=== PATIENT | male | born 1940 | race African-American/Black ===

== ENCOUNTER 2018-12-02 15:59 | Inpatient (IN) | payer OTHER ==
[2018-12-02 16:59] LABS: Absolute Lymphocytes (CBC) 0.4 K/uL (0.7-4.9); Basophils % 0.3 % (0-1.3); Hematocrit 38.8 % (39.6-49.0); Lymphocytes % 5.4 % (15.3-44.8); MPV 9.6 fL (7.6-11.3); RBC Red Blood Cell Count 6.35 M/uL (4.33-5.43)
[2018-12-02 17:16] LABS: Albumin 3.8 g/dL (3.4-5.0); Bilirubin Direct 0.1 mg/dL (0-0.2); Bilirubin Total 0.4 mg/dL (0.2-1.0); Potassium 4.4 mmol/L (3.5-5.1); Protein, Total 8.6 g/dL (6.4-8.2)
[2018-12-02 17:37] LABS: Platelet Estimate ADEQ; Urine White Blood Cell Casts OK
[2018-12-02 17:38] LABS: Blood Morphology Comment NOTED (NOT SEEN); Hypochromasia 2+
[2018-12-02 18:19] LABS: Urine Blood TRACE (NEG); Urine Glucose NEGATIVE (NEG); Urine Protein 1+ (NEG)
--- NOTE | 2018-12-02 18:43 | RAD REPORT ---
EXAM DESCRIPTION: CTAbdomen Pelvis W Contrast - 12/02/2018 6:23 pm CLINICAL HISTORY: Abdominal pain. lower abdominal pain, vomiting COMPARISON: CTSTONE PROTOCOL dated 06/22/2014 TECHNIQUE: Biphasic CT imaging of the abdomen and pelvis was performed with 100 ml non-ionic IV cont rast. All CT scans are performed using dose optimization technique as appropriate and may include automated exposure control or mA/KV adjustment according to patient size. FINDINGS: Examination is limited by motion degradation. The lung bases are clear. The liver demonstrates no focal mass or biliary dilatation. The spleen, adrenal glands, pancreas and right kidney are normal. Left kidney contains a 3.7 cm cyst in the superior pole left kidney. Several prominent small bowel loops are present in the left aspect of the abdomen. The most dilated s mall bowel loop measures 3.5 cm. This is suspicious for a mild mechanical small-bowel obstruction. Se veral surgical clips are present in the left upper quadrant as well. Small amount of free fluid is se en in the abdomen pelvis. The appendix is not identified as a discrete structure, however, no seconda ry findings of appendicitis are identified. No evidence of significant lymphadenopathy. No suspicious bony findings. IMPRESSION: Several dilated small bowel loops in the left abdomen raise suspicion for early/ develop ing partial mechanical small-bowel obstruction.
[2018-12-02] MEDS ORDERED: NA CHLORIDE 0.9% 1,000 ML ONE (19:25)
[2018-12-02] MEDS ORDERED: MORPHINE 4 MG/ML SYR ONE (19:25)
--- NOTE | 2018-12-02 19:49 | ER ---
Nurse's Notes [facility] Name: Sukhwinder Bassett Age: 77 yrs Sex: Male : 1940 Arrival Date: 12/02/2018 Time: 16:01 Bed 5 Private MD: Diagnosis: Bowel Obstruction Presentation: 12/02 16:04 Presenting complaint: Patient states: Abd pain since 0300, vomited x 5 since 0600. la1 Denies diarrhea. I never eat at night and last night I ate some apples, I feel like that is what is causing this. Transition of care: patient was not received from another setting of care. Onset of symptoms was December 02, 2018. Risk Assessment: Do you want to hurt yourself or someone else? Patient reports no desire to harm self or others. Initial Sepsis Screen: Does the patient meet any 2 criteria? No. Patient's initial sepsis screen is negative. Does the patient have a suspected source of infection? No. Patient's initial sepsis screen is negative. Care prior to arrival: None. 16:04 Method Of Arrival: Ambulatory la1 16:04 Acuity: DIO 3 la1 Historical: - Allergies: 16:05 No Known Allergies; la1 - Home Meds: 16:05 None [Active]; la1 - PMHx: 16:05 None; la1 - Immunization history:: Adult Immunizations up to date. - Social history:: Smoking status: Patient/guardian denies using tobacco. - Ebola Screening: : No symptoms or risks identified at this time. Screenin:45 Abuse screen: Denies threats or abuse. Denies injuries from another. Nutritional jl7 screening: No deficits noted. Tuberculosis screening: No symptoms or risk factors identified. Fall Risk IV access (20 points). Total Meng Fall Scale indicates No Risk (0-24 pts). Assessment: 16:45 General: Appears in no apparent distress. uncomfortable, Behavior is calm, cooperative, jl7 appropriate for age. Pain: Complains of pain in left lower quadrant and right lower quadrant Pain currently is 0 out of 10 on a pain scale. Quality of pain is described as crampy, Is intermittent. Neuro: Level of Consciousness is awake, alert, obeys commands, Oriented to person, place, time, situation. Cardiovascular: Patient's skin is warm and dry. Respiratory: Airway is patent Respiratory effort is even, unlabored, Respiratory pattern is regular, symmetrical. GI: Abdomen is flat, non-distended, Stools are reported to be normal. Last BM was December 02, 2018. Bowel sounds present X 4 quads. Abd is soft and non tender X 4 quads. : No signs and/or symptoms were reported regarding the genitourinary system. Denies burning with urination, inability to void, pain urinary frequency. EENT: No signs and/or symptoms were reported regarding the EENT system. Derm: Skin is dry, Skin is normal, Skin temperature is warm. Musculoskeletal: No signs and/or symptoms reported regarding the musculoskeletal system. 16:55 Reassessment: Pt reports "I just went to the bathroom." Unable to obtain urine at this jl7 time. 19:06 Reassessment: Patient appears in no apparent distress at this time. Patient and/or aa1 family updated on plan of care and expected duration. Pain level reassessed. Patient is alert, oriented x 3, equal unlabored respirations, skin warm/dry/pink. Awaiting provider reassessment. Vital Signs: 16:05 BP 170 / 84; Pulse 84; Resp 16; Temp 98.6; Pulse Ox 98% on R/A; Weight 92.99 kg; Height la1 6 ft. 0 in. (182.88 cm); 19:03 BP 176 / 82; Pulse 56; Resp 18; Temp 97.6; Pulse Ox 98% on R/A; Pain 5/10; aa1 20:00 BP 184 / 95; Pulse 56; Resp 16; Pulse Ox 98% on R/A; aa1 21:09 BP 175 / 85; Pulse 60; Resp 18; Temp 97.8; Pulse Ox 16% on R/A; Pain 3/10; aa1 16:05 Body Mass Index 27.80 (92.99 kg, 182.88 cm) la1 ED Course: 16:01 Patient arrived in ED. as 16:05 Triage completed. la1 16:05 Arm band placed on left wrist. la1 16:24 Prabhu Muñoz PA is PHCP. [facility] 16:24 Lauri Brothers MD is Attending Physician. [facility] 16:26 Lizbeth Alaniz RN is Primary Nurse. jl7 16:41 Radiology exam delayed due to lab results not completed at this time. (BUN/Creatinine). vm2 16:45 Patient has correct armband on for positive identification. Placed in gown. Bed in low jl7 position. Call light in reach. Side rails up X 1. property assessment monitor on. Pulse ox on. NIBP on. Warm blanket given. 16:45 Initial lab(s) drawn, by me, sent to lab. Inserted saline lock: 20 gauge in right jl7 forearm, using aseptic technique. Blood collected. 18:10 Urine collected: clean catch specimen, clear. dh3 18:23 CT Abd/Pelvis - IV Contrast Only In Process Unspecified. EDMS 19:48 Johanna Rowell MD is Hospitalizing Provider. m 20:53 No provider procedures requiring assistance completed. Patient admitted, IV remains in aa1 place. Administered Medications: 19:30 Drug: NS 0.9% 1000 ml Route: IV; Rate: 1 bolus; Site: right forearm; aa1 21:09 Follow up: IV Status: Completed infusion; IV Intake: 1000ml aa1 19:33 Drug: morphine 4 mg Route: IVP; Site: right forearm; aa1 20:33 Follow up: Response: No adverse reaction; Pain is decreased; RASS: Alert and Calm (0) aa1 20:13 Drug: LevaQUIN 500 mg Volume: 100 ml; Route: IVPB; Infused Over: 60 mins; Site: right aa1 forearm; 21:09 Follow up: IV Status: Completed infusion aa1 20:13 Drug: Flagyl 500 mg Volume: 100 ml; Route: IVPB; Rate: 200 ml/hr; Infused Over: 30 aa1 mins; Site: right forearm; 21:08 Follow up: IV Status: Completed infusion aa1 Intake: 21:09 IV: 1000ml; Total: 1000ml. aa1 Outcome: 19:48 Decision to Hospitalize by Provider. jmm 21:31 Admitted to Med/surg accompanied by tech, via wheelchair, room 231, with chart. mg2 21:32 Condition: stable mg2 21:32 Instructed on the need for admit, Demonstrated understanding of instructions. 21:32 Patient left the ED. mg2 Signatures: Dispatcher [employer] EDMS Lorrie Boland RN RN aa1 Prabhu Muñoz PA PA jmm Martinez, Amelia as Attema, Lee, RN RN la1 Lizbeth Alaniz RN RN jl7 Delicia Bach [facility] Carmella Sheffield 3 Isrrael Cardozo RN RN mg2 Corrections: (The following items were deleted from the chart) 21:32 21:31 Admitted to mg2 mg2
--- NOTE | 2018-12-02 19:50 | EDPHYS ---
Physician Documentation [facility] Name: Sukhwinder Bassett Age: 77 yrs Sex: Male : 1940 Arrival Date: 12/02/2018 Time: 16:01 Bed 5 Private MD: ED Physician Lauri Brothers HPI: 12/02 16:40 This 77 yrs old Black Male presents to ER via Ambulatory with complaints of Abdominal jmm Pain. 16:40 The patient presents with abdominal pain in the lower abdomen. Onset: The jmm symptoms/episode began/occurred gradually, 1 day(s) ago. The symptoms do not radiate. Associated signs and symptoms: Pertinent positives: vomiting. The symptoms are described as achy. This is a 77 year old male with no chronic medical conditions that presents to the ED with complaints of lower abdominal pain, vomiting beginning yesterday. Denies diarrhea. . Historical: - Allergies: 16:05 No Known Allergies; la1 - Home Meds: 16:05 None [Active]; la1 - PMHx: 16:05 None; la1 - Immunization history:: Adult Immunizations up to date. - Social history:: Smoking status: Patient/guardian denies using tobacco. - Ebola Screening: : No symptoms or risks identified at this time. ROS: 16:40 Constitutional: Negative for fever, chills, and weight loss, Cardiovascular: Negative jmm for chest pain, palpitations, and edema, Respiratory: Negative for shortness of breath, cough, wheezing, and pleuritic chest pain. 16:40 Back: Negative for injury and pain, MS/Extremity: Negative for injury and deformity, Skin: Negative for injury, rash, and discoloration, Neuro: Negative for headache, weakness, numbness, tingling, and seizure. 16:40 Abdomen/GI: Positive for abdominal pain, nausea and vomiting, Negative for diarrhea. 16:40 All other systems are negative. Exam: 16:40 Constitutional: This is a well developed, well nourished patient who is awake, alert, jmm and in no acute distress. Head/Face: atraumatic. Eyes: EOMI, no conjunctival erythema appreciated ENT: Moist Mucus Membranes Neck: Trachea midline, Supple Chest/axilla: Normal chest wall appearance and motion. Cardiovascular: Regular rate and rhythm. No edema appreciated Respiratory: Normal respirations, no respiratory distress appreciated 16:40 Back: Normal ROM Skin: General appearance color normal MS/ Extremity: Moves all extremities, no obvious deformities appreciated, no edema noted to the lower extremities Neuro: Awake and alert, normal gait Psych: Behavior is normal, Mood is normal, Patient is cooperative and pleasant 16:40 Abdomen/GI: Inspection: abdomen appears normal, Bowel sounds: normal, Palpation: soft, mild abdominal tenderness, in the right lower quadrant and left lower quadrant. Vital Signs: 16:05 BP 170 / 84; Pulse 84; Resp 16; Temp 98.6; Pulse Ox 98% on R/A; Weight 92.99 kg; Height la1 6 ft. 0 in. (182.88 cm); 19:03 BP 176 / 82; Pulse 56; Resp 18; Temp 97.6; Pulse Ox 98% on R/A; Pain 5/10; aa1 20:00 BP 184 / 95; Pulse 56; Resp 16; Pulse Ox 98% on R/A; aa1 21:09 BP 175 / 85; Pulse 60; Resp 18; Temp 97.8; Pulse Ox 16% on R/A; Pain 3/10; aa1 16:05 Body Mass Index 27.80 (92.99 kg, 182.88 cm) la1 MDM: 16:32 Patient medically screened. [facility] 19:46 Data reviewed: vital signs, nurses notes. Counseling: I had a detailed discussion with dayana the patient and/or guardian regarding: the historical points, exam findings, and any diagnostic results supporting the discharge/admit diagnosis, lab results, radiology results, the need for further work-up and treatment in the hospital. ED course: I discussed the patient with Dr. Rowell and Dr. Bolaños whom accepted admission. . 08 16:38 Order name: Basic Metabolic Panel; Complete Time: 17:46 [facility] 12/02 16:38 Order name: CBC with Diff; Complete Time: 17:46 [facility] 12/02 16:38 Order name: Creatinine for Radiology; Complete Time: 17:46 [facility] 12/02 16:38 Order name: Hepatic Function; Complete Time: 17:46 [facility] 12/02 16:38 Order name: Lipase; Complete Time: 17:46 [facility] 12/02 17:12 Order name: CBC Smear Scan; Complete Time: 17:46 [facility] 12/02 16:38 Order name: CT Abd/Pelvis - IV Contrast Only; Complete Time: 18:46 [facility] 12/02 18:15 Order name: Urine Dipstick--Ancillary (enter results); Complete Time: 18:20 eb 12/02 20:19 Order name: CONS Physician Consult [facility] 12/02 20:19 Order name: NPO [facility] 12/02 16:38 Order name: IV Saline Lock; Complete Time: 16:45 [facility] 12/02 16:38 Order name: Labs collected and sent; Complete Time: 16:45 [facility] 12/02 16:38 Order name: Urine Dipstick-Ancillary (obtain specimen); Complete Time: 18:17 [facility] Administered Medications: 19:30 Drug: NS 0.9% 1000 ml Route: IV; Rate: 1 bolus; Site: right forearm; aa1 21:09 Follow up: IV Status: Completed infusion; IV Intake: 1000ml aa1 19:33 Drug: morphine 4 mg Route: IVP; Site: right forearm; aa1 20:33 Follow up: Response: No adverse reaction; Pain is decreased; RASS: Alert and Calm (0) aa1 20:13 Drug: LevaQUIN 500 mg Volume: 100 ml; Route: IVPB; Infused Over: 60 mins; Site: right aa1 forearm; 21:09 Follow up: IV Status: Completed infusion aa1 20:13 Drug: Flagyl 500 mg Volume: 100 ml; Route: IVPB; Rate: 200 ml/hr; Infused Over: 30 aa1 mins; Site: right forearm; 21:08 Follow up: IV Status: Completed infusion aa1 Disposition: 12/02/18 19:48 Hospitalization ordered by Johanna Rowell for Inpatient Admission. Preliminary diagnosis is Bowel Obstruction. - Bed requested for Telemetry/MedSurg (Inpatient). - Status is Inpatient Admission. mg2 - Condition is Stable. - Problem is new. - Symptoms are unchanged. UTI on Admission? No Addendum: 12/05/2018 07:20 Co-signature as Attending Physician, Lauri Brothers MD. r n Signatures: Dispatcher [employer] [facility] Ambar Bentley RN RN Lorrie Boland RN RN aa1 Prabhu Muñoz PA PA [facility] Lauri Brothers MD MD rn Attema, Lee, RN RN la1 Isrrael Cardozo RN RN mg2 Corrections: (The following items were deleted from the chart) 12/02 20:36 19:48 Hospitalization Ordered by Johanna Rowell MD for Inpatient Admission. Preliminary mw diagnosis is Bowel Obstruction. Bed requested for Telemetry/MedSurg (Inpatient). Status is Inpatient Admission. Condition is Stable. Problem is new. Symptoms are unchanged. UTI on Admission? No. [facility] 21:32 20:36 12/02/2018 19:48 Hospitalization Ordered by Johanna Rowell MD for Inpatient mg2 Admission. Preliminary diagnosis is Bowel Obstruction. Bed requested for Telemetry/MedSurg (Inpatient). Status is Inpatient Admission. Condition is Stable. Problem is new. Symptoms are unchanged. UTI on Admission? No. mw
[2018-12-02] MEDS ORDERED: Levofloxacin500mg IV 500 MG/100 ML BAG IV ONE (20:05)
[2018-12-02] MEDS ORDERED: METRONIDAZOLE 500mg IVPB 500 MG/100 ML BAG IV ONE (20:05)
[2018-12-02] MEDS ORDERED: ONDANSETRON 4 MG/2 ML VIAL IV PRN (20:13)
[2018-12-02] MEDS ORDERED: ACETAMINOPHEN 500 MG TAB PO PRN (20:13)
[2018-12-02] MEDS ORDERED: NA CHLORIDE 0.9% 1,000 ML IV SCH (21:00)
[2018-12-02] MEDS: Levofloxacin500mg IV 500 MG/100 ML BAG IV SCH (21:00)
[2018-12-02 21:48] VITALS: BMI 27.9
[2018-12-02] MEDS: HYDROMORPHONE HCL 1 MG/ML INJ IV PRN (23:15)
[2018-12-02] MEDS: METRONIDAZOLE 500mg IVPB 500 MG/100 ML BAG IV SCH (23:15)
[2018-12-03] MEDS: METRONIDAZOLE 500mg IVPB 500 MG/100 ML BAG IV SCH ×4 (05:23→23:23)
[2018-12-03 06:14] LABS: Protime INR 1.11
[2018-12-03 06:15] LABS: Absolute Lymphocytes (CBC) 0.6 K/uL (0.7-4.9); Basophils % 0.3 % (0-1.3); Hematocrit 36.6 % (39.6-49.0); Lymphocytes % 8.4 % (15.3-44.8); MPV 9.1 fL (7.6-11.3); RBC Red Blood Cell Count 5.94 M/uL (4.33-5.43)
[2018-12-03 06:22] LABS: Albumin 3.2 g/dL (3.4-5.0); Bilirubin Total 0.4 mg/dL (0.2-1.0); Magnesium 2.1 mg/dL (1.8-2.4); Protein, Total 7.2 g/dL (6.4-8.2)
--- NOTE | 2018-12-03 09:57 | P.PN ---
Subjective Date of Service: 12/03/18 Primary Care Provider: Dr. Marvin Chief Complaint: Abdominal pain Subjective: Other (Patient without abdominal pain this morning. No significant nausea or vomiting noted as well. Patient is passing gas. No bowel movement since yesterday.) Physical Examination - Vital Signs Temperature: 98.3 F Blood Pressure: 154/57 Pulse: 52 Respirations: 14 Pulse Ox (%): 98 - Physical Exam General: Alert, In no apparent distress, Oriented x3, Cooperative HEENT: Atraumatic Neck: Supple Respiratory: Clear to auscultation bilaterally, Normal air movement Cardiovascular: Normal pulses, Regular rate/rhythm Gastrointestinal: Hypoactive, Soft and benign, Non-distended, No masses, No rebound, No guarding, Other (Scars to the abdomen noted), Tenderness (No abdominal pain noted.) Neurological: Normal speech, Normal strength at 5/5 x4 extr, Normal tone, Normal affect - Studies Laboratory Data (last 24 hrs) 12/02/18 16:42: Creatinine 1.48 H 12/02/18 16:42: WBC 7.0, Hgb 11.9 L, Hct 38.8 L, Plt Count 170 12/02/18 16:42: Sodium 139, Potassium 4.4, BUN 12, Creatinine 1.50 H, Glucose 120 H, Total Bilirubin 0.4, AST 23, ALT 20, Alkaline Phosphatase 51, Lipase 125 Medications List Reviewed: Yes Assessment & Plan Discharge Plan: Home Plan to discharge in: 24 Hours Physician Review Additional Text: Impression: Abdominal pain secondary to partial small bowel obstruction with prior colectomy Acute renal injury likely dehydration Anemia suspect iron deficiency Elevated blood pressure without hypertension Plan: Abdominal pain secondary to partial small bowel obstruction with prior colectomy : Patient appears improved. Patient is passing gas. Still no bowel movement. Currently NPO at this time. Await surgical evaluation. Anticipate start of clear liquid diet. Encourage ambulation. Will provide incentive spirometer. Will start DVT prophylaxis-Lovenox. Anticipate discharge within the next 24-48 hr pending clinical improvement. Will discuss with surgery. Acute renal injury likely dehydration: Will adjust IV fluids. Overall improved. Will monitor electrolytes. Replacement protocol in place. Anemia suspect iron deficiency: Will monitor hemoglobin. Will check iron and B12 levels. Will recommend colonoscopy as an outpatient. Elevated blood pressure without hypertension: Will obtain and verify home medication. Will monitor blood pressures closely. Patient may require medication at discharge. Time Spent Managing Pts Care (In Minutes): 55
--- NOTE | 2018-12-03 11:07 | P.HP ---
Certification for Inpatient Patient admitted to: Inpatient With expected LOS: >2 Midnights Patient will require the following post-hospital care: None Practitioner: I am a practitioner with admitting privileges, knowledge of patient current condition, hospital course, and medical plan of care. Services: Services provided to patient in accordance with Admission requirements found in Title 42 Section 412.3 of the Code of Federal Regulations Patient History Date of Service: 12/02/18 Reason for admission: Abdominal pain History of Present Illness: patient is a 77-year-old gentleman who came to hospital with abdominal discomfort. He had been working yesterday and was doing well. After work he ate an apple. He normally does not eat anything whatsoever. He woke up in the morning today with his abdomen hurting. He had multiple episodes of intractable nausea and vomiting. He came into the hospital for further evaluation. In the emergency room, and his abdominal x-ray revealed a partial/ small-bowel obstruction. Patient has no flatus and denies having a bowel movement. He will be admitted to the hospital for further evaluation, and he will be monitored for a small-bowel obstruction. Allergies No Known Drug Allergies Allergy (Verified 12/02/18 21:56) Unknown Home Medications: NK [No Home Meds] 12/02/18 - Past Medical/Surgical History Has patient received pneumonia vaccine in the past: Yes Diabetic: No -: colonic issues -: 1992 colon surgery-partial colon resection - Family History Father Family History: Reviewed- Non-Contributory - Social History Smoking Status: Never smoker Alcohol use: No CD- Drugs: No Caffeine use: Yes Place of Residence: Home Review of Systems 10-point ROS is otherwise unremarkable Physical Examination - Vital Signs Temperature: 98.3 F Blood Pressure: 154/57 Pulse: 52 Respirations: 14 Pulse Ox (%): 98 - Physical Exam General: Alert, In no apparent distress, Oriented x3 HEENT: Atraumatic, PERRLA, Mucous membr. moist/pink, EOMI, Sclerae nonicteric Neck: Supple, 2+ carotid pulse no bruit, No LAD, Without JVD or thyroid abnormality Respiratory: Clear to auscultation bilaterally, Normal air movement Cardiovascular: Regular rate/rhythm, Normal S1 S2, No murmurs Gastrointestinal: Normal bowel sounds, Soft and benign, Non-distended, No tenderness Musculoskeletal: No tenderness Integumentary: No rashes Neurological: Normal gait, Normal speech, Normal strength at 5/5 x4 extr, Normal tone, Sensation intact, Cranial nerves 3-12 intact, Normal affect Lymphatics: No axilla or inguinal lymphadenopathy - Studies Laboratory Data (last 24 hrs) 12/02/18 16:42: Creatinine 1.48 H 12/02/18 16:42: WBC 7.0, Hgb 11.9 L, Hct 38.8 L, Plt Count 170 12/02/18 16:42: Sodium 139, Potassium 4.4, BUN 12, Creatinine 1.50 H, Glucose 120 H, Total Bilirubin 0.4, AST 23, ALT 20, Alkaline Phosphatase 51, Lipase 125 Assessment & Plan - Problems (Diagnosis) (1) SBO (small bowel obstruction) Current Visit: Yes Status: Acute - Plan -management per surgery -DVT prophylaxis -IV hydration and IV antibiotics -advanced diet as tolerated -monitor electrolytes and blood count closely -pain control Discharge Plan: Home Plan to discharge in: Greater than 2 days - Advance Directives Does patient have a Living Will: No Does patient have a Durable POA for Healthcare: No - Code Status/Comfort Care Code Status Assessed: Yes Code Status: Full Code Critical Care: No Time Spent Managing PTS Care (In Minutes): 45
[2018-12-03 11:12] LABS: Ferritin 228.1 ng/mL (26-388)
[2018-12-03] MEDS: NACHLORIDE 0.45% 1,000 ML IV SCH ×2 (11:19→23:20)
[2018-12-03] MEDS: HYDRALAZINE HCL 20 MG/ML VIAL IV PRN ×2 (13:20→23:57)
--- NOTE | 2018-12-03 14:41 | CON ---
Date of Consultation: 12/03/2018 Brief History Of Present Illness: Patient is a 77-year-old gentleman, who presents with complaints of abdominal pain beginning yesterday. He has never had similar episodes before in t he past. The pain was a gradual onset beginning yesterday. He has had some nausea, but no vomiting. He continues to have some bowel function, but no diarrhea. He continues to pass gas, but did not h ave a bowel movement yesterday, which he normally has a bowel movement every day. He does have a pas t medical history of a partial colectomy. He is uncertain of the location and he says it was for ble eding approximately 20 to 30 years ago. He has not had any other additional surgeries. He has had a colonoscopy in 2012, which he believes was normal at that time. Past Medical History: Negative. Past Surgical History: Partial colectomy for GI bleeding. Home Medications: None. Allergies: NO KNOWN DRUG ALLERGIES. Review of Systems: A 10-point review of systems other than HPI, denies. Physical Examination: Vital Signs: At the time of my examination, his BMI is 27. His vital signs are blood pressure 154/5 7, pulse is 52, respiratory rate 14, temperature 98.3. General: He is awake, alert, and oriented. Psychiatric: Appropriate. Conversive. HEENT: Normocephalic. Sclerae icteric. Mucous membranes are moist. Oropharynx clear. Neck: Supple. No JVD. Chest: Normal expansion and excursion. Cardiovascular: Regular rate and rhythm. Pulmonary: Clear to auscultation bilaterally. Abdomen: Soft, nontender, nondistended. No rebound. No guarding. No focal peritonitis. Extremities: No clubbing, cyanosis, or edema. Skin: Warm and dry. 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 Laboratory Data: Reveals a white blood cell count of 7.6, hemoglobin is 11.2, hematocrit 36.6, plate let count is 158, neutrophils are 83%. PT 31, INR 1.11, PTT 27.3. His sodium 142, potassium 4.0, ch loride 111, carbon dioxide 24, BUN 10, creatinine 1.4, glucose is 114. He had a CT scan performed of the abdomen and pelvis, which is officially read as several dilated small bowel loops in the left ab domen raise suspicion for early/developing partial mechanical small bowel obstruction. Assessment And Plan: This is a 77-year-old male, who comes into the hospital with a likely partial s mall bowel obstruction, which appears to be resolving as his pain has essentially resolved. He no lo nger has nausea, vomiting, and he is hungry. 1.Continue IV fluid hydration and medical management. 2.Recommend starting clear liquid diet and advance as tolerated. 3.Serial abdominal exams. 4.I will follow along with you. Thank you for this interesting consult. TREVOR/SUNNY Voice ID: [id number] Report ID: [id number]
[2018-12-03] MEDS: ENOXAPARIN 30 MG/0.3 ML SQ SCH (16:57)
[2018-12-03] MEDS: Levofloxacin500mg IV 500 MG/100 ML BAG IV SCH (20:19)
[2018-12-03] MEDS: HYDROMORPHONE HCL 1 MG/ML INJ IV PRN (20:25)
[2018-12-03 23:19] VITALS: O2SAT 99
[2018-12-04] MEDS: NACHLORIDE 0.45% 1,000 ML IV SCH (04:05)
[2018-12-04] MEDS: HYDROMORPHONE HCL 1 MG/ML INJ IV PRN (04:42)
[2018-12-04] MEDS: METRONIDAZOLE 500mg IVPB 500 MG/100 ML BAG IV SCH ×2 (06:03→12:00)
[2018-12-04] MEDS: HYDRALAZINE HCL 20 MG/ML VIAL IV PRN ×2 (06:03→11:40)
[2018-12-04 07:19] LABS: Absolute Lymphocytes (CBC) 0.7 K/uL (0.7-4.9); Basophils % 0.2 % (0-1.3); Hematocrit 39.5 % (39.6-49.0); Lymphocytes % 8.8 % (15.3-44.8); MPV 9.4 fL (7.6-11.3); RBC Red Blood Cell Count 6.41 M/uL (4.33-5.43)
[2018-12-04 07:25] LABS: Magnesium 1.9 mg/dL (1.8-2.4); Potassium 3.7 mmol/L (3.5-5.1)
[2018-12-04] MEDS ORDERED: AMLODIPINE 5 MG TAB PO SCH (09:00)
[2018-12-04] MEDS: ENOXAPARIN 30 MG/0.3 ML SQ SCH (09:10)
--- NOTE | 2018-12-04 09:32 | P.PN ---
Subjective Date of Service: 12/04/18 Primary Care Provider: Dr. Marvin Chief Complaint: Abdominal pain Subjective: Improving, Doing well (Patient tolerated full liquid diet. No significant abdominal pain noted. No nausea or vomiting. Blood pressures have remained elevated. Patient passing gas. Still no bowel movement.) Physical Examination - Vital Signs Temperature: 98.6 F Blood Pressure: 180/83 Pulse: 67 Respirations: 16 Pulse Ox (%): 99 - Physical Exam General: Alert, In no apparent distress, Oriented x3, Cooperative HEENT: Atraumatic Neck: Supple Respiratory: Clear to auscultation bilaterally, Normal air movement Cardiovascular: Normal pulses, Regular rate/rhythm Gastrointestinal: Normal bowel sounds, Soft and benign, Non-distended, No ascites, No tenderness, No masses, No rebound, No guarding Neurological: Normal speech, Normal tone, Normal affect - Studies Medications List Reviewed: Yes Assessment & Plan Discharge Plan: Home Plan to discharge in: 24 Hours Physician Review Additional Text: Impression: Abdominal pain secondary to partial small bowel obstruction with prior colectomy Acute renal injury likely dehydration Anemia suspect iron deficiency Elevated blood pressure now with hypertension Plan: Abdominal pain secondary to partial small bowel obstruction with prior colectomy : Patient has improved. No significant abdominal pain, nausea and vomiting. Patient is passing gas. Still no bowel movement. Patient is tolerating full liquid diet. Will advance to a GI soft diet today. Encourage ambulation. Patient remains on DVT prophylaxis-Lovenox. Will discuss with surgery. Anticipate discharge as early as today if tolerating GI soft diet with possible passage bowel movement. Acute renal injury likely dehydration: Continue IV fluids. Will discontinue if taking good oral intake. Will monitor electrolytes. Replacement protocol in place. Anemia with iron and B12 deficiency: Patient will require supplementation. Will recommend colonoscopy as an outpatient. Elevated blood pressure now with hypertension: Will start Norvasc 5 mg daily. Will continue to monitor and adjust medication. Patient will require medication at discharge and follow up with PCP to further address. Time Spent Managing Pts Care (In Minutes): 55
--- NOTE | 2018-12-04 09:52 | P.PN ---
Subjective Date of Service: 12/04/18 Primary Care Provider: Dr. Marvin Chief Complaint: Abdominal pain Subjective: Improving (Tolerating soft food, passing more gas, pain almost completely resolved.) Physical Examination - Vital Signs Temperature: 98.6 F Blood Pressure: 180/83 Pulse: 67 Respirations: 16 Pulse Ox (%): 99 - Physical Exam General: Alert, In no apparent distress, Cooperative Gastrointestinal: Soft and benign, Non-distended, No ascites, No tenderness, No masses, No rebound, No guarding - Studies Medications List Reviewed: Yes Assessment And Plan - Plan - Patient has resolving PSBO - Advance to regular diet - may DC home from surgical standpoint Physician Review Additional Text: Impression: Abdominal pain secondary to partial small bowel obstruction with prior colectomy Acute renal injury likely dehydration Anemia suspect iron deficiency Elevated blood pressure now with hypertension Plan: Abdominal pain secondary to partial small bowel obstruction with prior colectomy : Patient has improved. No significant abdominal pain, nausea and vomiting. Patient is passing gas. Still no bowel movement. Patient is tolerating full liquid diet. Will advance to a GI soft diet today. Encourage ambulation. Patient remains on DVT prophylaxis-Lovenox. Will discuss with surgery. Anticipate discharge as early as today if tolerating GI soft diet with possible passage bowel movement. Acute renal injury likely dehydration: Continue IV fluids. Will discontinue if taking good oral intake. Will monitor electrolytes. Replacement protocol in place. Anemia with iron and B12 deficiency: Patient will require supplementation. Will recommend colonoscopy as an outpatient. Elevated blood pressure now with hypertension: Will start Norvasc 5 mg daily. Will continue to monitor and adjust medication. Patient will require medication at discharge and follow up with PCP to further address.
--- NOTE | 2018-12-04 10:12 | P.DS ---
Admission Date: 12/02/18 Discharge Date: 12/04/18 Primary Care Provider: Dr. Marvin Disposition: ROUTINE DISCHARGE Discharge Condition: GOOD Reason for Admission: Abdominal pain Consultations: Surgery-Dr. Bolaños Procedures: CT Scan: FINDINGS: Examination is limited by motion degradation. The lung bases are clear. The liver demonstrates no focal mass or biliary dilatation. The spleen, adrenal glands, pancreas and right kidney are normal. Left kidney contains a 3.7 cm cyst in the superior pole left kidney. Several prominent small bowel loops are present in the left aspect of the abdomen. The most dilated small bowel loop measures 3.5 cm. This is suspicious for a mild mechanical small-bowel obstruction. Several surgical clips are present in the left upper quadrant as well. Small amount of free fluid is seen in the abdomen pelvis. The appendix is not identified as a discrete structure, however, no secondary findings of appendicitis are identified. No evidence of significant lymphadenopathy. No suspicious bony findings. IMPRESSION: Several dilated small bowel loops in the left abdomen raise suspicion for early/ developing partial mechanical small-bowel obstruction. Medical Problem List: Abdominal pain secondary to partial small bowel obstruction with prior colectomy , resolved Acute renal injury likely dehydration, resolved Mild Anemia with B12/iron deficiency Elevated blood pressure now with Hypertension Brief History of Present Illness: 77 yo CM presented to the ER with abdominal pain. Patient found to have early partial small bowel obstruction. Patient was admitted for further evaluation and treatment. Surgery consulted. Hospital Course: Patient presented with abdominal pain secondary to partial small bowel obstruction. Patient with history of colectomy. Patient was admitted for further ablation and treatment. Surgery was consulted. His diet was advanced. Patient tolerated his diet. No surgical intervention was required. Partial small-bowel obstruction resolved. At discharge he is without any significant abdominal pain, nausea or vomiting. Patient cleared for discharge by surgery. Recommend follow up with surgery in 1-2 weeks to follow up this hospitalization. Patient may continue with low residue GI soft diet. Will recommend colonoscopy in 4-6 weeks to follow up this hospitalization. Education on small bowel obstruction will be provided. Patient also presented with acute renal injury likely from dehydration. Patient continue with IV fluids. This appears resolved. Recommend to recheck lab-BMP in 1 week to monitor his progress. Encourage good oral intake. Patient found to be anemic. Iron and B12 deficiency were noted. At discharge he may continue with multi vitamin with iron mg daily and B12 1000 mcg daily. Recommend to recheck lab-CBC, iron and B12 in 2-4 weeks to monitor his progress. Will recommend colonoscopy in 4-6 weeks to follow up this hospitalization and further address his anemia. Patient also found to have elevated blood pressure. Patient without history of hypertension. Blood pressure remained stable in his stay. Medication was initiated. Blood pressure improved. At discharge patient will continue with Norvasc 5 mg daily. Recommend to maintain blood pressures less 150/80. Further adjustment can be done by his PCP. Patient is to keep a blood pressure log and further address with his PCP at follow up. Vital Signs/Physical Exam: Temp Pulse Resp BP Pulse Ox 98.6 F 67 16 180/83 H 99 12/04/18 09:52 12/04/18 09:52 12/04/18 09:52 12/04/18 09:52 12/04/18 09:52 General: Alert, In no apparent distress, Oriented x3, Cooperative HEENT: Atraumatic Neck: Supple Respiratory: Clear to auscultation bilaterally, Normal air movement Cardiovascular: Normal pulses, Regular rate/rhythm Gastrointestinal: Normal bowel sounds, Soft and benign, Non-distended, No tenderness, No masses, No rebound, No guarding Musculoskeletal: No erythema, No tenderness, No warmth Integumentary: No tenderness/swelling, No erythema, No warmth, No cyanosis Neurological: Normal speech, Normal strength at 5/5 x4 extr, Normal tone, Normal affect Laboratory Data at Discharge: WBC 8.1 K/uL (4.3-10.9) 12/04/18 06:41 Hgb 12.1 g/dL (13.6-17.9) L 12/04/18 06:41 Hct 39.5 % (39.6-49.0) L 12/04/18 06:41 Plt Count 162 K/uL (152-406) 12/04/18 06:41 PT 13.1 SECONDS (9.5-12.5) H 12/03/18 05:49 INR 1.11 12/03/18 05:49 APTT 27.3 SECONDS (24.3-36.9) 12/03/18 05:49 Sodium 138 mmol/L (136-145) 12/04/18 06:41 Potassium 3.7 mmol/L (3.5-5.1) 12/04/18 06:41 BUN 11 mg/dL (7-18) 12/04/18 06:41 Creatinine 1.39 mg/dL (0.55-1.3) H 12/04/18 06:41 Glucose 116 mg/dL (74-106) H 12/04/18 06:41 Phosphorus 3.0 mg/dL (2.5-4.9) 12/03/18 05:49 Magnesium 1.9 mg/dL (1.8-2.4) 12/04/18 06:41 Total Bilirubin 0.4 mg/dL (0.2-1.0) 12/03/18 05:49 AST 16 U/L (15-37) 12/03/18 05:49 ALT 17 U/L (12-78) 12/03/18 05:49 Alkaline Phosphatase 41 U/L (45-117) L 12/03/18 05:49 Lipase 99 U/L (73-393) 12/03/18 05:49 Home Medications: Amlodipine [Norvasc*] 5 mg PO DAILY #30 tab 12/04/18 Cyanocobalamin (Vitamin B-12) [Vitamin B-12] 1,000 mcg PO DAILY #90 tablet 12/04 Multivitamin with Iron [Multivitamins with Iron] 1 each PO DAILY #90 tablet New Medications: Amlodipine [Norvasc*] 5 mg PO DAILY #30 tab Cyanocobalamin (Vitamin B-12) [Vitamin B-12] 1,000 mcg PO DAILY #90 tablet Multivitamin with Iron [Multivitamins with Iron] 1 each PO DAILY #90 tablet Patient Discharge Instructions: 1. Recommend follow up with PCP in 1 week to follow up hospitalization. 2. Patient presented with abdominal pain secondary to partial small bowel obstruction. Patient with history of colectomy. Patient was admitted for further ablation and treatment. Surgery was consulted. His diet was advanced. Patient tolerated his diet. No surgical intervention was required. Partial small-bowel obstruction resolved. At discharge he is without any significant abdominal pain, nausea or vomiting. Patient cleared for discharge by surgery. Recommend follow up with surgery in 1 -2 weeks to follow up this hospitalization. Patient may continue with low residue GI soft diet. Will recommend colonoscopy in 4-6 weeks to follow up this hospitalization. Education on small bowel obstruction will be provided. 3. Patient also presented with acute renal injury likely from dehydration. Patient continue with IV fluids. This appears resolved. Recommend to recheck lab-BMP in 1 week to monitor his progress. Encourage good oral intake. 4. Patient found to be anemic. Iron and B12 deficiency were noted. At discharge he may continue with multi vitamin with iron mg daily and B12 1000 mcg daily. Recommend to recheck lab-CBC, iron and B12 in 2-4 weeks to monitor his progress. Will recommend colonoscopy in 4-6 weeks to follow up this hospitalization and further address his anemia. 5. Patient also found to have elevated blood pressure. Patient without history of hypertension. Blood pressure remained stable in his stay. Medication was initiated. Blood pressure improved. At discharge patient will continue with Norvasc 5 mg daily. Recommend to maintain blood pressures less 150/80. Further adjustment can be done by his PCP. Patient is to keep a blood pressure log and further address with his PCP at follow up. Diet: Low residue GI soft diet, advanced as tolerated Activity: Ad phuc Time spent managing pt's care (in minutes): 55
[2018-12-04 12:11] VITALS: BP 178/92; TEMP 97.9
== END 2018-12-04 12:29 | disposition home or self-care (01) | DRG 389 ==
LOC: ER 15:59 → ERHOLD 20:13 → 2ND 21:14
PROVIDERS: ADMIT Hospitalist; ATTEND Hospitalist
DX: K56.600 Partial intestinal obstruction, unspecified as to cause (principal); N17.9 Acute kidney failure, unspecified; E86.0 Dehydration; D50.9 Iron deficiency anemia, unspecified; I10 Essential (primary) hypertension; Z90.49 Acquired absence of other specified parts of digestive tract
CPT/HCPCS: 36415; 74177; 80048; 80053; 80076; 81003; 82607; 82728; 83540; 83690; 83735; 84100; 84466; 85025; 85610; 85730; 96361; 96365; 96368; 96375; 99285; J0360; J1170; J1650; J2405; J7030; Q9967

== ENCOUNTER 2020-05-19 11:15 | Emergency (ER) | payer OTHER ==
--- OUTSIDE RECORDS SUMMARY | 2020-05-19 11:16 | XMS REPORT | Clinical Summary ---
:1940 Author Organization [facility] Address [address] [place] [address] Care Team Providers Name Role Phone Unavailable Primary Care Provider Unavailable Allergies No Known Allergies Medications Medication Sig Dispensed Refills Start Date End Date Status aspirin 81 MG chewable Take 1 tablet 30 tablet 11 12/23/2018 tablet (81 mg total) by mouth daily. atorvastatin (LIPITOR) Take 1 tablet 30 tablet 11 12/22/2018 80 MG tablet (80 mg total) by mouth nightly. Active Problems Problem Noted Date SBO (small bowel obstruction) 12/13/2018 NSTEMI (non-ST elevated myocardial infarction) 019 Social History Tobacco Use Types Packs/Day Years Used Date Never Smoker Tobacco Cessation: Counseling Given: No Alcohol Use Drinks/Week oz/Week Comments No Alcohol Habits Answer Date Recorded How often do you have a drink containing alcohol? Never 12/12/2018 How many drinks containing alcohol do you have on a typical Not asked day when you are drinking? How often do you have six or more drinks on one occasion? Ne anam 12/12/2018 Sex Assigned at Date Recorded Not on file Last Filed Vital Signs Not on file Plan of Treatment Health Maintenance Due Date Last Done Comments MEDICARE ANNUAL WELLNESS (YEAR 2 or FIRST YEAR if no 04/20/2019 IPPE) INFLUENZA VACCINE (#1) 2019 02/05/2014 PNEUMOCOCCAL 65+ YRS Completed 02/05/2014 Implants Implanted Type Area Voice Engineer Device Identifier Shelf Model / Expiration Serial / Date Lot Andrea Benoit 5x6 [id number] - [id number] IMPLANTS N/A : GENZYME CRISTOPHER: [id number] 09/16/2021 [id number] / Implanted: Qty: 2 on 12/15/2018 by Charlene Delgado MD at [facility] Abdomen BIO-SURG / [id number] Results Not on fileafter 05/19/2019 Insurance Payer Benefit Plan Subscriber ID Effective Phone Address Typ e / Group Dates AETNA - AETNA [id number] 2018-Pres [phone] [address] [employer] MEDICARE MGD MEDICARE HMO ent [id number] Contracted CARE POS [place] [id number] Advance Directives For more information, please contact: [phone] Code Status Date Activated Date Inactivated Comments Full Code 12/12/2018 4:38 PM 12/22/2018 5:52 PM This code status was determined by: Patient Full Code 12/11/2018 8:38 PM 12/12/2018 4:38 PM This code status was determined by: Patient
--- OUTSIDE RECORDS SUMMARY | 2020-05-19 11:18 | XMS REPORT | Summary of Care ---
:1940 Author Organization [facility] Address [address] [place] [address] Care Team Providers Name Role Phone Pcp, Patient Does Not Have A Primary Care Provider +[id number] Encounter Details Date Type Department Care Team Description 04/07/2020 Letter (Out) [facility] [employer] Message s Doctor Unassigned, No [address] [facility] [place] [phone] [facility] [phone] [place] [address] Allergies No Known Allergiesdocumented as of this encounter (statuses as of 04/07/2020) Medications Medication Sig Dispensed Refills Start Date End Date Status colchicine (COLCRYS) 0.6 Take one tablet 20 Tab 0 5 Active mg tablet every 12 hours methylPREDNISolone Take 21 Tabs by 1 Package 0 11/10/2014 Active (MEDROL DOSE-CYNTHIA) 4 mg mouth tablets SEE-INSTRUCTIONS . follow package directions ALLOPURINOL ORAL Take by mouth. 0 Active naproxen sodium Take 1 Tab by 14 Tab 0 01/02/2015 Active (ANAPROX) 550 mg tablet mouth 2 (two) times daily with meals. documented as of this encounter (statuses as of 04/07/2020) Active Problems Not on filedocumented as of this encounter (statuses as of 04/07/2020) Social History Tobacco Use Types Packs/Day Years Used Date Never Assessed Sex Assigned at Date Recorded Not on file documented as of this encounter Last Filed Vital Signs Not on filedocumented in this encounter Plan of Treatment Date Type Specialty Care Team Description 04/07/2020 Laboratory Only Family Medicine Nicolasa Long, FN [address] [facility] [address] [place] [address] [phone] Arrived Lab, Adc Fam Pob I documented as of this encounter Results Not on filedocumented in this encounter Insurance Payer Benefit Plan Subscriber ID Effective Phone Address Typ e / Group Dates AETNA - AETNA [id number] 2014-Radu [address] Medic are Adv MANAGED MEDICARE ADV nt [id number] [place] [address] documented as of this encounter
--- OUTSIDE RECORDS SUMMARY | 2020-05-19 11:18 | XMS REPORT | Continuity of Care Document ---
:1940 Author Organization Formerly [facility] t Address [address] [place] [address] Care Team Providers Name Role Phone Lab, Adc Fam Pob I Attending Clinician Unavailable Doctor Unassigned, Name Attending Clinician Unavailable ALEXANDRA Attending Clinician Unavailable ALEXANDRA Admitting Clinician Unavailable Problems Condition Condition Condition Status Onset Resolution Last Treating Co mments Source Name Details Category Date Date Treatment Clinician Date SBO (small SBO (small Disease Active [facility] bowel bowel [facility] - obstructio obstructio 00:00: Me dical n) n) 00 Center NSTEMI NSTEMI Disease Active [facility] - elevated elevated 00:00: Medica l myocardial myocardial 00 Ce nter infarction infarction ) ) Allergies, Adverse Reactions, Alerts This patient has no known allergies or adverse reactions. Social History Social Habit Start Date Stop Date Quantity Comments Source History [facility] - Alcohol Std Drinks Medica l Center Sex Assigned At [facility] Alcohol intake 2018-12-16 2018-12-16 Current [facility] St Un[facility] es - 00:00:00 00:00:00 non-drinker of Medical Ce nter alcohol (finding) History [facility] 2018-12-12 2018-12-[address] [facility] - Alcohol Frequency 00:00:00 00:00:00 Medical Center History [facility] 2018-12-12 2018-12-12 [address] [facility] - Alcohol Binge 00:00:00 00:00:[address] Smoking Status Start Date Stop Date Source Never smoker [facility] Medications Ordered Filled Start Stop Current Ordering Indication Dosage Frequency Signature Comments Components Source Medication Medication Date Date Medication? Clinician (SIG) Name Name aspirin 81 2019- No 81mg QD Take [address] [facility] [address] [facility] chewable 12-23 tablet (81 L ukes - tablet 00:00: 23:59 mg total) Medic al 00 :00 by mouth Center daily. atorvastati 2019- No 80mg QD Take [address] [facility] n (LIPITOR) 12-22 tablet (80 L ukes - 80 MG 00:00: 23:59 mg total) Medica l tablet 00 :00 by mouth Center nightly. Procedures This patient has no known procedures. Plan of Care Planned Activity Planned Date Details Comments Source Future Scheduled 2019-12-[address] [facility] - Test 00:00:00 (#1) [code = [facility] INFLUENZA VACCINE (#1)] Future Scheduled 2019-04-[address] [facility] - Test 00:00:00 WELLNESS (YEAR 2 or [facility] FIRST YEAR if no IPPE) [code = MEDICARE ANNUAL WELLNESS (YEAR 2 or FIRST YEAR if no IPPE)] Encounters Start End Encounter Admission Attending Care Care Encounter Source Date/Time Date/Time Type Type Clinicians Facility Department ID 2020-04-07 2020-04-07 Laboratory Lab, [facility] [id number] 10:25:04 10:45:04 Only Fam Pob I Health [id number] [place] [id number] Professio [phone] nal [address] 2020-04-07 2020-04-07 Letter Doctor ZOEY [id number] 00:00:00 00:00:00 (Out) Unassigned, SABIHA [id number] [place] [facility] [id number] [phone] [id number] Results Test Description Test Time Test Comments Results Result Comments Source TISSUE EXAM 2018-12-22 Surgical Pathology 15:10:00 Report Case: [id number] Authorizing Provider: Charlene Delgado MD Collected: 12/15/20182018 Ordering Location: [facility] PERI[facility] Received: 12/20/2018 0953 SERVICES Pathologist: David Felix MD Specimen: Small Bowel, NOS, Small Bowel A. SMALL BOWEL, RESECTIONSMALL BOWEL WITH SEROSAL ADHESIONS, CONGESTION, ACUTE INFLAMMATION AND SEROSITIS.NEGATIVE FOR GRANULOMAS, DYSPLASIA, OR INVASIVE CARCINOMA.MARGINS VIABLE Signing Pathologist Direct Phone Line: [phone] yulillkatie signed by David Felix MD on 12/22/2018 at 3:10 [id number] laparotomy, lysis of adhesions, small bowel resection Small intestineThe case was received in a single part labeled with the patient's name, date of and accession number all of which match the information provided on the requisition slip.Part A received in formalin in a container labeled "small bowel" is an unoriented segment of small bowel 3.5 x 4.5 x 2.1 cm.The serosa is eller-pink with a single adhesion connecting the two segments of small bowel. A thin segment of mesentery is attached and reveals no lesions.The open bowel reveals normal rugated mucosa in a circumference of 5 cm as well as a 2 cm in circumference stricture at the area where the two segments of bowel connect. Serial sections to the small bowel reveal no intramuscular or mucosal lesions or mesenteric lesions.Ink code: Red-margins.Sections are submitted as follows: A1, mucosal margins en face; A2, mesenteric margin en face; A3, A4, longitudinal sections of small bowel to include normal small bowel and stricture. EC/ew Performed. POCT-GLUCOSE METER 2018-12-22 08:45:00 Test Item Value Reference Range Interpretation Comme [facility] POC-GLUCOSE METER (BEAKER) (test 96 mg/dL 70-110 TESTED AT [facility] [address] [facility]38[facility] 7703 0 CBC W/PLT COUNT & AUTO [id number] 07:27:00 Test Item Value Reference Range Interpretation Comments WHITE BLOOD CELL COUNT (BEAKER) 11.6 K/ L 3.5-10.5 H (test code = 775) RED BLOOD CELL COUNT (BEAKER) 5.52 M/ L 4.63-6.08 (test code = 761) HEMOGLOBIN (BEAKER) (test code = 10.2 GM/DL 13.7-17.5 L 410) HEMATOCRIT (BEAKER) (test code = 34.2 % 40.1-51.0 L 411) MEAN CORPUSCULAR VOLUME (BEAKER) 62.0 fL 79.0-92.2 L (test code = 753) MEAN CORPUSCULAR HEMOGLOBIN 18.5 pg 25.7-32.2 L (BEAKER) (test code = 751) MEAN CORPUSCULAR HEMOGLOBIN CONC 29.8 GM/DL 32.3-36.5 L (BEAKER) (test code = 752) RED CELL DISTRIBUTION WIDTH 15.9 % 11.6-14.4 H (BEAKER) (test code = 412) PLATELET COUNT (BEAKER) (test 285 K/CU MM 150-450 code = 756) MEAN PLATELET VOLUME (BEAKER) 10.6 fL 9.4-12.4 (test code = 754) NUCLEATED RED BLOOD CELLS 0 /100 WBC 0-0 (BEAKER) (test code = 413) (CELLAVISION MANUAL DIFF)2018-12-22 07:27:00 Test Item Value Reference Range Interpretation Comments NEUTROPHILS - REL 72 % (CELLAVISION)(BEAKER) (test code = 2816) LYMPHOCYTES - REL 13 % (CELLAVISION)(BEAKER) (test code = 2817) MONOCYTES - REL 5 % (CELLAVISION)(BEAKER) (test code = 2818) EOSINOPHILS - REL 6 % (CELLAVISION)(BEAKER) (test code = 2819) ATYPICAL LYMPHOCYTES - REL 3 % 0-0 H (CELLAVISION)(BEAKER) (test code = 2829) NEUTROPHILS - ABS 8.35 K/ul 1.78-5.38 H (CELLAVISION)(BEAKER) (test code = 2830) LYMPHOCYTES - ABS 1.51 K/ul 1.32-3.57 (CELLAVISION)(BEAKER) (test code = 2831) MONOCYTES - ABS 0.58 K/uL 0.30-0.82 (CELLAVISION)(BEAKER) (test code = 2832) EOSINOPHILS - ABS 0.70 K/uL 0.04-0.54 H (CELLAVISION)(BEAKER) (test code = 2834) ATYPICAL LYMPHOCYTES - ABS 0.35 K/uL 0.00-0.00 H (CELLAVISION)(BEAKER) (test code = 2858) TOTAL COUNTED (BEAKER) (test code 100 = 1351) WBC MORPHOLOGY (BEAKER) (test Normal code = 487) PLT MORPHOLOGY (BEAKER) (test Normal code = 486) POLYCHROMATOPHILLIC RBCS(BEAKER) 1+ few (test code = 478) HYPOCHROMIA (BEAKER) (test code = 1+ few 963) PATRICIA CELLS (BEAKER) (test code = 2+ moderate 474) ARTIFACT (CELLAVISION)(BEAKER) Present (test code = 3432) PLATELET CONCENTRATION Adequate (CELLAVISION)(BEAKER) (test code = 3438) Received comment: User comments: Slide comments:[id number] 05:23:00 Test Item Value Reference Range Interpretation Comments MAGNESIUM (BEAKER) (test code = 1.7 mg/dL 1.6-2.6 627) BASIC METABOLIC [id number] 05:23:00 Test Item Value Reference Range Interpretation Comments SODIUM (BEAKER) 140 meq/L 136-145 (test code = 381) POTASSIUM (BEAKER) 3.9 meq/L 3.5-5.1 (test code = 379) CHLORIDE (BEAKER) 113 meq/L 98-107 H (test code = 382) CO2 (BEAKER) (test 18 meq/L 22-29 L code = 355) BLOOD UREA NITROGEN 9 mg/dL 7-21 (BEAKER) (test code = 354) CREATININE (BEAKER) 1.54 mg/dL 0.57-1.25 H (test code = 358) GLUCOSE RANDOM 101 mg/dL 70-105 (BEAKER) (test code = 652) CALCIUM (BEAKER) 9.1 mg/dL 8.4-10.2 (test code = 697) EGFR (BEAKER) (test 54 mL/min/1.73 ESTIMA JUAN GFR IS code = 1092) sq m NOT ACCURATE CREATININE CLEARANCE IN PREDICTING GLOMERULAR FILTRATION RATE . ESTIMATED GFR I S NOT APPLICABLE FOR DIALYSIS PATIEN TS. POCT-GLUCOSE [id number] 21:16:00 Test Item Value Reference Range Interpretation Comments POC-GLUCOSE METER 107 mg/dL 70-110 TESTED AT [facility] 67[address] (BEAKER) (test code = [address] [place] 1538) [id number] POCT-GLUCOSE [id number] 18:22:00 Test Item Value Reference Range Interpretation Comments POC-GLUCOSE METER 111 mg/dL 70-110 H TESTED AT [facility] 67[address] (BEAKER) (test code = [address] [place] 1538) [address] POCT-GLUCOSE [id number] 14:04:00 Test Item Value Reference Range Interpretation Comments POC-GLUCOSE METER 132 mg/dL 70-110 H TESTED AT [facility] 67[address] (BEAKER) (test code = [address] [place] 1538) [id number] POCT-GLUCOSE [id number] 08:04:00 Test Item Value Reference Range Interpretation Comments POC-GLUCOSE METER 142 mg/dL 70-110 H TESTED AT [place] [address] (BEAKER) (test code = T[address] Landis [facility] 1538) [address] CBC W/PLT COUNT & AUTO [id number] 05:08:00 Test Item Value Reference Range Interpretation Comments WHITE BLOOD CELL COUNT (BEAKER) 11.8 K/ L 3.5-10.5 H (test code = 775) RED BLOOD CELL COUNT (BEAKER) 5.36 M/ L 4.63-6.08 (test code = 761) HEMOGLOBIN (BEAKER) (test code = 9.7 GM/DL 13.7-17.5 L 410) HEMATOCRIT (BEAKER) (test code = 33.7 % 40.1-51.0 L 411) MEAN CORPUSCULAR VOLUME (BEAKER) 62.9 fL 79.0-92.2 L (test code = 753) MEAN CORPUSCULAR HEMOGLOBIN 18.1 pg 25.7-32.2 L (BEAKER) (test code = 751) MEAN CORPUSCULAR HEMOGLOBIN CONC 28.8 GM/DL 32.3-36.5 L (BEAKER) (test code = 752) RED CELL DISTRIBUTION WIDTH 15.8 % 11.6-14.4 H (BEAKER) (test code = 412) PLATELET COUNT (BEAKER) (test 234 K/CU MM 150-450 code = 756) MEAN PLATELET VOLUME (BEAKER) 10.8 fL 9.4-12.4 (test code = 754) NUCLEATED RED BLOOD CELLS 0 /100 WBC 0-0 (BEAKER) (test code = 413) NEUTROPHILS RELATIVE PERCENT 80 % (BEAKER) (test code = 429) LYMPHOCYTES RELATIVE PERCENT 9 % (BEAKER) (test code = 430) MONOCYTES RELATIVE PERCENT 5 % (BEAKER) (test code = 431) EOSINOPHILS RELATIVE PERCENT 5 % (BEAKER) (test code = 432) BASOPHILS RELATIVE PERCENT 0 % (BEAKER) (test code = 437) NEUTROPHILS ABSOLUTE COUNT 9.44 K/ L 1.78-5.38 H (BEAKER) (test code = 670) LYMPHOCYTES ABSOLUTE COUNT 1.06 K/ L 1.32-3.57 L (BEAKER) (test code = 414) MONOCYTES ABSOLUTE COUNT (BEAKER) 0.58 K/ L 0.30-0.82 (test code = 415) EOSINOPHILS ABSOLUTE COUNT 0.60 K/ L 0.04-0.54 H (BEAKER) (test code = 416) BASOPHILS ABSOLUTE COUNT (BEAKER) 0.03 K/ L 0.01-0.08 (test code = 417) IMMATURE GRANULOCYTES-RELATIVE 1 % 0-1 PERCENT (BEAKER) (test code = 2801) [id number] 04:50:00 Test Item Value Reference Range Interpretation Comments MAGNESIUM (BEAKER) (test code = 1.7 mg/dL 1.6-2.6 627) BASIC METABOLIC [id number] 04:50:00 Test Item Value Reference Range Interpretation Comments SODIUM (BEAKER) 139 meq/L 136-145 (test code = 381) POTASSIUM (BEAKER) 3.7 meq/L 3.5-5.1 (test code = 379) CHLORIDE (BEAKER) 112 meq/L 98-107 H (test code = 382) CO2 (BEAKER) (test 20 meq/L 22-29 L code = 355) BLOOD UREA NITROGEN 6 mg/dL 7-21 L (BEAKER) (test code = 354) CREATININE (BEAKER) 1.52 mg/dL 0.57-1.25 H (test code = 358) GLUCOSE RANDOM 115 mg/dL 70-105 H (BEAKER) (test code = 652) CALCIUM (BEAKER) 8.2 mg/dL 8.4-10.2 L (test code = 697) EGFR (BEAKER) (test 54 mL/min/1.73 ESTIMA JUAN GFR IS code = 1092) sq m NOT ACCURATE CREATININE CLEARANCE IN PREDICTING GLOMERULAR FILTRATION RATE . ESTIMATED GFR I S NOT APPLICABLE FOR DIALYSIS PATIEN TS. POCT-GLUCOSE [id number] 21:51:00 Test Item Value Reference Range Interpretation Comments POC-GLUCOSE METER 112 mg/dL 70-110 H TESTED AT [facility] 67[address] (BEAKER) (test code = [place] 1538) [address] POCT-GLUCOSE [id number] 17:20:00 Test Item Value Reference Range Interpretation Comments POC-GLUCOSE METER 131 mg/dL 70-110 H TESTED AT [place] [id number] (BEAKER) (test code = [address] [place] 1538) [id number] POCT-GLUCOSE [id number] 12:30:00 Test Item Value Reference Range Interpretation Comments POC-GLUCOSE METER 122 mg/dL 70-110 H TESTED AT [place] [address] (BEAKER) (test code = [address] [place] 1538) [address] CBC W/PLT COUNT & AUTO [id number] 09:45:00 Test Item Value Reference Range Interpretation Comments WHITE BLOOD CELL COUNT (BEAKER) 11.9 K/ L 3.5-10.5 H (test code = 775) RED BLOOD CELL COUNT (BEAKER) 5.26 M/ L 4.63-6.08 (test code = 761) HEMOGLOBIN (BEAKER) (test code = 9.7 GM/DL 13.7-17.5 L 410) HEMATOCRIT (BEAKER) (test code = 33.1 % 40.1-51.0 L 411) MEAN CORPUSCULAR VOLUME (BEAKER) 62.9 fL 79.0-92.2 L (test code = 753) MEAN CORPUSCULAR HEMOGLOBIN 18.4 pg 25.7-32.2 L (BEAKER) (test code = 751) MEAN CORPUSCULAR HEMOGLOBIN CONC 29.3 GM/DL 32.3-36.5 L (BEAKER) (test code = 752) RED CELL DISTRIBUTION WIDTH 15.8 % 11.6-14.4 H (BEAKER) (test code = 412) PLATELET COUNT (BEAKER) (test 246 K/CU MM 150-450 code = 756) MEAN PLATELET VOLUME (BEAKER) 11.3 fL 9.4-12.4 (test code = 754) NUCLEATED RED BLOOD CELLS 0 /100 WBC 0-0 (BEAKER) (test code = 413) (CELLAVISION MANUAL DIFF)2018-12-20 09:45:00 Test Item Value Reference Range Interpretation Comments NEUTROPHILS - REL 81 % (CELLAVISION)(BEAKER) (test code = 2816) LYMPHOCYTES - REL 7 % (CELLAVISION)(BEAKER) (test code = 2817) MONOCYTES - REL 3 % (CELLAVISION)(BEAKER) (test code = 2818) EOSINOPHILS - REL 8 % (CELLAVISION)(BEAKER) (test code = 2819) BASOPHILS - REL 1 % (CELLAVISION)(BEAKER) (test code = 2820) NEUTROPHILS - ABS 9.64 K/ul 1.78-5.38 H (CELLAVISION)(BEAKER) (test code = 2830) LYMPHOCYTES - ABS 0.83 K/ul 1.32-3.57 L (CELLAVISION)(BEAKER) (test code = 2831) MONOCYTES - ABS 0.36 K/uL 0.30-0.82 (CELLAVISION)(BEAKER) (test code = 2832) EOSINOPHILS - ABS 0.95 K/uL 0.04-0.54 H (CELLAVISION)(BEAKER) (test code = 2834) BASOPHILS - ABS 0.12 K/uL 0.01-0.08 H (CELLAVISION)(BEAKER) (test code = 2835) TOTAL COUNTED (BEAKER) (test code = 100 1351) WBC MORPHOLOGY (BEAKER) (test code Normal = 487) PLT MORPHOLOGY (BEAKER) (test code Normal = 486) POLYCHROMATOPHILLIC RBCS(BEAKER) 1+ few (test code = 478) HYPOCHROMIA (BEAKER) (test code = 1+ few 963) ANISOCYTOSIS (BEAKER) (test code = 1+ few 961) MICROCYTES (BEAKER) (test code = 1+ few 965) ARTIFACT (CELLAVISION)(BEAKER) Present (test code = 3432) PLATELET CONCENTRATION Adequate (CELLAVISION)(BEAKER) (test code = 3438) Received comment: User comments: Slide comments:POCT-GLUCOSE [id number] 08:19:00 Test Item Value Reference Range Interpretation Comments POC-GLUCOSE METER 126 mg/dL 70-110 H TESTED AT [facility] 67[address] (BEAKER) (test code = [place] 1538) [id number] 05:41:00 Test Item Value Reference Range Interpretation Comments MAGNESIUM (BEAKER) (test code = 1.8 mg/dL 1.6-2.6 627) BASIC METABOLIC [id number] 05:41:00 Test Item Value Reference Range Interpretation Comments SODIUM (BEAKER) 138 meq/L 136-145 (test code = 381) POTASSIUM (BEAKER) 3.8 meq/L 3.5-5.1 (test code = 379) CHLORIDE (BEAKER) 111 meq/L 98-107 H (test code = 382) CO2 (BEAKER) (test 20 meq/L 22-29 L code = 355) BLOOD UREA NITROGEN 8 mg/dL 7-21 (BEAKER) (test code = 354) CREATININE (BEAKER) 1.64 mg/dL 0.57-1.25 H (test code = 358) GLUCOSE RANDOM 118 mg/dL 70-105 H (BEAKER) (test code = 652) CALCIUM (BEAKER) 8.3 mg/dL 8.4-10.2 L (test code = 697) EGFR (BEAKER) (test 50 mL/min/1.73 ESTIMA JUAN GFR IS code = 1092) sq m NOT ACCURATE CREATININE CLEARANCE IN PREDICTING GLOMERULAR FILTRATION RATE . ESTIMATED GFR I S NOT APPLICABLE FOR DIALYSIS PATIEN TS. POCT-GLUCOSE [id number] 23:59:00 Test Item Value Reference Range Interpretation Comments POC-GLUCOSE METER 114 mg/dL 70-110 H TESTED AT [facility] 6720 (BEAKER) (test code = HUGOSHELBI Boby [facility] 1538) [id number] POCT-GLUCOSE [id number] 18:01:00 Test Item Value Reference Range Interpretation Comments POC-GLUCOSE METER 118 mg/dL 70-110 H TESTED AT [facility] 6720 (BEAKER) (test code = [address] Landis [facility] 1538) [address] POCT-GLUCOSE [id number] 12:49:00 Test Item Value Reference Range Interpretation Comments POC-GLUCOSE METER 141 mg/dL 70-110 H TESTED AT [facility] 6720 (BEAKER) (test code = [place]is [facility] 1538) [address] URINALYSIS W/ REFLEX URINE [id number] 08:56:00 Test Item Value Reference Range Interpretation Comments COLOR (BEAKER) (test code = 470) Yellow CLARITY (BEAKER) (test code = 469) Clear SPECIFIC GRAVITY UA (BEAKER) (test 1.012 1.001-1.035 code = 468) PH UA (BEAKER) (test code = 467) 6.0 5.0-8.0 PROTEIN UA (BEAKER) (test code = 50 mg/dL Negative A 464) GLUCOSE UA (BEAKER) (test code = Negative Negative 365) KETONES UA (BEAKER) (test code = Negative Negative 371) BILIRUBIN UA (BEAKER) (test code = Negative Negative 462) BLOOD UA (BEAKER) (test code = 461) Trace Negative A NITRITE UA (BEAKER) (test code = Negative Negative 465) LEUKOCYTE ESTERASE UA (BEAKER) Negative Negative (test code = 466) UROBILINOGEN UA (BEAKER) (test code 0.2 mg/dL 0.2-1.0 = 463) RBC UA (BEAKER) (test code = 519) 1 /HPF WBC UA (BEAKER) (test code = 520) 5 /HPF MUCUS (BEAKER) (test code = 1574) Rare SQUAMOUS EPITHELIAL (BEAKER) (test 2 /HPF code = 516) SOURCE(BEAKER) (test code = 2795) RAD, CHEST, 1 VIEW, NON [id number] 07:48:00Reason for exam:- >leukocytosisShould this be performed at the bedside?->YesFINAL REPORT Portable chest. CLINICAL HISTORY: leukocytosis. COMPARISON STUDY: None. FINDINGS: The cardiac silhouette is enlarged. The pulmonary parenchyma demonstrates increasedinterstitial markings with atelectatic or consolidative changes in the left lung base. No pneumothorax is seen. Degenerative changes are noted. IMPRESSION: Interstitial markings with atelectatic or consolidative changes in the left lung base. In the right clinical setting, a superimposed infection would be difficult to exclude. Clinical correlation and short term imaging follow-up could be made to exclude other etiologies. Signed: Anthony Daly MDReport Verified Date/Time: 12/19/2018 07:48:39 Reading Location: [address] Consult Reading Room CBC W/PLT COUNT & AUTO [id number] 05:27:00 Test Item Value Reference Range Interpretation Comments WHITE BLOOD CELL COUNT (BEAKER) 13.1 K/ L 3.5-10.5 H (test code = 775) RED BLOOD CELL COUNT (BEAKER) 5.44 M/ L 4.63-6.08 (test code = 761) HEMOGLOBIN (BEAKER) (test code = 10.1 GM/DL 13.7-17.5 L 410) HEMATOCRIT (BEAKER) (test code = 34.6 % 40.1-51.0 L 411) MEAN CORPUSCULAR VOLUME (BEAKER) 63.6 fL 79.0-92.2 L (test code = 753) MEAN CORPUSCULAR HEMOGLOBIN 18.6 pg 25.7-32.2 L (BEAKER) (test code = 751) MEAN CORPUSCULAR HEMOGLOBIN CONC 29.2 GM/DL 32.3-36.5 L (BEAKER) (test code = 752) RED CELL DISTRIBUTION WIDTH 15.9 % 11.6-14.4 H (BEAKER) (test code = 412) PLATELET COUNT (BEAKER) (test 222 K/CU MM 150-450 code = 756) MEAN PLATELET VOLUME (BEAKER) 11.0 fL 9.4-12.4 (test code = 754) NUCLEATED RED BLOOD CELLS 0 /100 WBC 0-0 (BEAKER) (test code = 413) NEUTROPHILS RELATIVE PERCENT 83 % (BEAKER) (test code = 429) LYMPHOCYTES RELATIVE PERCENT 7 % (BEAKER) (test code = 430) MONOCYTES RELATIVE PERCENT 3 % (BEAKER) (test code = 431) EOSINOPHILS RELATIVE PERCENT 5 % (BEAKER) (test code = 432) BASOPHILS RELATIVE PERCENT 0 % (BEAKER) (test code = 437) NEUTROPHILS ABSOLUTE COUNT 10.80 K/ L 1.78-5.38 H (BEAKER) (test code = 670) LYMPHOCYTES ABSOLUTE COUNT 0.97 K/ L 1.32-3.57 L (BEAKER) (test code = 414) MONOCYTES ABSOLUTE COUNT (BEAKER) 0.41 K/ L 0.30-0.82 (test code = 415) EOSINOPHILS ABSOLUTE COUNT 0.67 K/ L 0.04-0.54 H (BEAKER) (test code = 416) BASOPHILS ABSOLUTE COUNT (BEAKER) 0.03 K/ L 0.01-0.08 (test code = 417) IMMATURE GRANULOCYTES-RELATIVE 2 % 0-1 H PERCENT (BEAKER) (test code = 2801) [id number] 05:25:00 Test Item Value Reference Range Interpretation Comments PREALBUMIN (BEAKER) (test code = 586) 8 mg/dL 14-45 L [id number] 05:23:00 Test Item Value Reference Range Interpretation Comments MAGNESIUM (BEAKER) (test code = 1.9 mg/dL 1.6-2.6 627) BASIC METABOLIC [id number] 05:23:00 Test Item Value Reference Range Interpretation Comments SODIUM (BEAKER) 141 meq/L 136-145 (test code = 381) POTASSIUM (BEAKER) 3.7 meq/L 3.5-5.1 (test code = 379) CHLORIDE (BEAKER) 111 meq/L 98-107 H (test code = 382) CO2 (BEAKER) (test 22 meq/L 22-29 code = 355) BLOOD UREA NITROGEN 11 mg/dL 7-21 (BEAKER) (test code = 354) CREATININE (BEAKER) 1.69 mg/dL 0.57-1.25 H (test code = 358) GLUCOSE RANDOM 134 mg/dL 70-105 H (BEAKER) (test code = 652) CALCIUM (BEAKER) 8.1 mg/dL 8.4-10.2 L (test code = 697) EGFR (BEAKER) (test 48 mL/min/1.73 ESTIMA JUAN GFR IS code = 1092) sq m NOT ACCURATE CREATININE CLEARANCE IN PREDICTING GLOMERULAR FILTRATION RATE . ESTIMATED GFR I S NOT APPLICABLE FOR DIALYSIS PATIEN TS. POCT-GLUCOSE [id number] 23:55:00 Test Item Value Reference Range Interpretation Comments POC-GLUCOSE METER 135 mg/dL 70-110 H TESTED AT [facility] 67[address] [facility] (test code = [place] 1538) [address] POCT-GLUCOSE [id number] 19:04:00 Test Item Value Reference Range Interpretation Comments POC-GLUCOSE METER 142 mg/dL 70-110 H TESTED AT [facility] 6720 [facility] (test code = [place] 1538) [id number] RAD, ABDOMEN/KUB, 1 VIEW [id number] 09:42:00Reason for exam:->bowel obstruction r/oFINAL REPORT CLINICAL HISTORY: bowel obstruction TECHNIQUE: Supine abdomen COMPARISON: 12/15/2018 IMPRESSION: There are new midline abdominal skin ash. Nasogastric tube is again seen looped in the stomach. A relative paucity of bowel gas remains in the lower abdomen, with increased air-filled loops of large and small bowel in the left upper quadrant. Free air and air-fluid levels are not seen but cannot be definitively excluded on the supine view. Signed: Taye Banegas MDReport Verified Date/Time: 12/18/2018 09:42:46 Reading Location: [facility] [id number] Neuro Reading Room POCT- GLUCOSE [id number] 07:27:00 Test Item Value Reference Range Interpretation Comments POC-GLUCOSE METER 158 mg/dL 70-110 H TESTED AT [place] [address] ([facility]) (test code = TUL[place] Landis [facility] 1538) [id number] POCT-GLUCOSE [id number] 05:43:00 Test Item Value Reference Range Interpretation Comments POC-GLUCOSE METER 142 mg/dL 70-110 H TESTED AT [place] [address] ([facility]) (test code = HUGOUT Boby [facility] 1538) [id number] BASIC METABOLIC [id number] 04:41:00 Test Item Value Reference Range Interpretation Comments SODIUM (BEAKER) 144 meq/L 136-145 (test code = 381) POTASSIUM (BEAKER) 3.9 meq/L 3.5-5.1 (test code = 379) CHLORIDE (BEAKER) 114 meq/L 98-107 H (test code = 382) CO2 (BEAKER) (test 25 meq/L 22-29 code = 355) BLOOD UREA NITROGEN 16 mg/dL 7-21 (BEAKER) (test code = 354) CREATININE (BEAKER) 1.99 mg/dL 0.57-1.25 H (test code = 358) GLUCOSE RANDOM 139 mg/dL 70-105 H (BEAKER) (test code = 652) CALCIUM (BEAKER) 7.9 mg/dL 8.4-10.2 L (test code = 697) EGFR (BEAKER) (test 40 mL/min/1.73 ESTIMA JUAN GFR IS code = 1092) sq m NOT ACCURATE CREATININE CLEARANCE IN PREDICTING GLOMERULAR FILTRATION RATE . ESTIMATED GFR I S NOT APPLICABLE FOR DIALYSIS PATIEN GIBSON. [id number] 04:19:00 Test Item Value Reference Range Interpretation Comments MAGNESIUM (BEAKER) (test code = 1.9 mg/dL 1.6-2.6 627) CBC W/PLT COUNT & AUTO [id number] 03:25:00 Test Item Value Reference Range Interpretation Comments WHITE BLOOD CELL COUNT (BEAKER) 17.0 K/ L 3.5-10.5 H (test code = 775) RED BLOOD CELL COUNT (BEAKER) 5.62 M/ L 4.63-6.08 (test code = 761) HEMOGLOBIN (BEAKER) (test code = 10.3 GM/DL 13.7-17.5 L 410) HEMATOCRIT (BEAKER) (test code = 35.8 % 40.1-51.0 L 411) MEAN CORPUSCULAR VOLUME (BEAKER) 63.7 fL 79.0-92.2 L (test code = 753) MEAN CORPUSCULAR HEMOGLOBIN 18.3 pg 25.7-32.2 L (BEAKER) (test code = 751) MEAN CORPUSCULAR HEMOGLOBIN CONC 28.8 GM/DL 32.3-36.5 L (BEAKER) (test code = 752) RED CELL DISTRIBUTION WIDTH 16.0 % 11.6-14.4 H (BEAKER) (test code = 412) PLATELET COUNT (BEAKER) (test 232 K/CU MM 150-450 code = 756) MEAN PLATELET VOLUME (BEAKER) 10.5 fL 9.4-12.4 (test code = 754) NUCLEATED RED BLOOD CELLS 0 /100 WBC 0-0 (BEAKER) (test code = 413) NEUTROPHILS RELATIVE PERCENT 84 % (BEAKER) (test code = 429) LYMPHOCYTES RELATIVE PERCENT 7 % (BEAKER) (test code = 430) MONOCYTES RELATIVE PERCENT 3 % (BEAKER) (test code = 431) EOSINOPHILS RELATIVE PERCENT 4 % (BEAKER) (test code = 432) BASOPHILS RELATIVE PERCENT 0 % (BEAKER) (test code = 437) NEUTROPHILS ABSOLUTE COUNT 14.23 K/ L 1.78-5.38 H (BEAKER) (test code = 670) LYMPHOCYTES ABSOLUTE COUNT 1.17 K/ L 1.32-3.57 L (BEAKER) (test code = 414) MONOCYTES ABSOLUTE COUNT (BEAKER) 0.53 K/ L 0.30-0.82 (test code = 415) EOSINOPHILS ABSOLUTE COUNT 0.75 K/ L 0.04-0.54 H (BEAKER) (test code = 416) BASOPHILS ABSOLUTE COUNT (BEAKER) 0.03 K/ L 0.01-0.08 (test code = 417) IMMATURE GRANULOCYTES-RELATIVE 2 % 0-1 H PERCENT (BEAKER) (test code = 2801) POCT-GLUCOSE [id number] 23:23:00 Test Item Value Reference Range Interpretation Comments POC-GLUCOSE METER 145 mg/dL 70-110 H TESTED AT [place] [address] [facility] (test code = [place] Landis [facility] 1538) [id number] POCT-GLUCOSE [id number] 18:28:00 Test Item Value Reference Range Interpretation Comments POC-GLUCOSE METER 129 mg/dL 70-110 H TESTED AT [place] [address] ([facility] (test code = [facility] Boby [facility] 1538) [id number] POCT-GLUCOSE [id number] 12:58:00 Test Item Value Reference Range Interpretation Comments POC-GLUCOSE METER 159 mg/dL 70-110 H TESTED AT [place] [address] ([facility] 15[facility] [id number] 05:56:00 Test Item Value Reference Range Interpretation Comments MAGNESIUM (BEAKER) 2.0 mg/dL 1.6-2.6 Specimen slightly (test code = 627) hemolyzed BASIC METABOLIC [id number] 05:56:00 Test Item Value Reference Range Interpretation Comments SODIUM (BEAKER) 148 meq/L 136-145 H (test code = 381) POTASSIUM (BEAKER) 4.5 meq/L 3.5-5.1 Specimen slightly (test code = 379) hemolyzed CHLORIDE (BEAKER) 115 meq/L 98-107 H (test code = 382) CO2 (BEAKER) (test 26 meq/L 22-29 code = 355) BLOOD UREA NITROGEN 20 mg/dL 7-21 (BEAKER) (test code = 354) CREATININE (BEAKER) 2.13 mg/dL 0.57-1.25 H Specimen slightly (test code = 358) hemolyzed GLUCOSE RANDOM 159 mg/dL 70-105 H (BEAKER) (test code = 652) CALCIUM (BEAKER) 8.0 mg/dL 8.4-10.2 L (test code = 697) EGFR (BEAKER) (test 37 mL/min/1.73 ESTIMA JUAN GFR IS code = 1092) sq m NOT ACCURATE CREATININE CLEARANCE IN PREDICTING GLOMERULAR FILTRATION RATE . ESTIMATED GFR I S NOT APPLICABLE FOR DIALYSIS PATIEN TS. CBC W/PLT COUNT & AUTO [id number] 04:38:00 Test Item Value Reference Range Interpretation Comments WHITE BLOOD CELL COUNT (BEAKER) 13.5 K/ L 3.5-10.5 H (test code = 775) RED BLOOD CELL COUNT (BEAKER) 6.15 M/ L 4.63-6.08 H (test code = 761) HEMOGLOBIN (BEAKER) (test code = 11.5 GM/DL 13.7-17.5 L 410) HEMATOCRIT (BEAKER) (test code = 39.2 % 40.1-51.0 L 411) MEAN CORPUSCULAR VOLUME (BEAKER) 63.7 fL 79.0-92.2 L (test code = 753) MEAN CORPUSCULAR HEMOGLOBIN 18.7 pg 25.7-32.2 L (BEAKER) (test code = 751) MEAN CORPUSCULAR HEMOGLOBIN CONC 29.3 GM/DL 32.3-36.5 L (BEAKER) (test code = 752) RED CELL DISTRIBUTION WIDTH 16.4 % 11.6-14.4 H (BEAKER) (test code = 412) PLATELET COUNT (BEAKER) (test 236 K/CU MM 150-450 code = 756) MEAN PLATELET VOLUME (BEAKER) 10.7 fL 9.4-12.4 (test code = 754) NUCLEATED RED BLOOD CELLS 0 /100 WBC 0-0 (BEAKER) (test code = 413) NEUTROPHILS RELATIVE PERCENT 83 % (BEAKER) (test code = 429) LYMPHOCYTES RELATIVE PERCENT 8 % (BEAKER) (test code = 430) MONOCYTES RELATIVE PERCENT 5 % (BEAKER) (test code = 431) EOSINOPHILS RELATIVE PERCENT 3 % (BEAKER) (test code = 432) BASOPHILS RELATIVE PERCENT 0 % (BEAKER) (test code = 437) NEUTROPHILS ABSOLUTE COUNT 11.20 K/ L 1.78-5.38 H (BEAKER) (test code = 670) LYMPHOCYTES ABSOLUTE COUNT 1.04 K/ L 1.32-3.57 L (BEAKER) (test code = 414) MONOCYTES ABSOLUTE COUNT (BEAKER) 0.63 K/ L 0.30-0.82 (test code = 415) EOSINOPHILS ABSOLUTE COUNT 0.46 K/ L 0.04-0.54 (BEAKER) (test code = 416) BASOPHILS ABSOLUTE COUNT (BEAKER) 0.05 K/ L 0.01-0.08 (test code = 417) IMMATURE GRANULOCYTES-RELATIVE 1 % 0-1 PERCENT (BEAKER) (test code = 2801) POCT-GLUCOSE [id number] 02:18:00 Test Item Value Reference Range Interpretation Comments POC-GLUCOSE METER 147 mg/dL 70-110 H TESTED AT [place] [address] ([facility]) (test code = [place] Landis [facility] 1538) [id number] POCT-GLUCOSE [id number] 19:10:00 Test Item Value Reference Range Interpretation Comments POC-GLUCOSE METER 179 mg/dL 70-110 H TESTED AT [place] [address] ([facility]) (test [facility] = [facility] 1538) [address] POCT-GLUCOSE [id number] 12:29:00 Test Item Value Reference Range Interpretation Comments POC-GLUCOSE METER 161 mg/dL 70-110 H TESTED AT [place] [address] ([facility]) (test code = [facility] 1538) [address] POCT-GLUCOSE [id number] 05:45:00 Test Item Value Reference Range Interpretation Comments POC-GLUCOSE METER 140 mg/dL 70-110 H TESTED AT [place] [address] ([facility] (test [facility] = [facility] 1538) [id number] (CELLAVISION MANUAL DIFF)2018-12-16 03:43:00 Test Item Value Reference Range Interpretation Comments NEUTROPHILS - REL 21 % (CELLAVISION)(BEAKER) (test code = 2816) LYMPHOCYTES - REL 17 % (CELLAVISION)(BEAKER) (test code = 2817) MONOCYTES - REL 3 % (CELLAVISION)(BEAKER) (test code = 2818) EOSINOPHILS - REL 2 % (CELLAVISION)(BEAKER) (test code = 2819) BASOPHILS - REL 2 % (CELLAVISION)(BEAKER) (test code = 2820) PROMYELOCYTES - REL 1 % 0-0 H (CELLAVSION)(BEAKER) (test code = 2825) BANDS - REL (CELLAVISION)(BEAKER) 48 % 0-10 H (test code = 2826) BLASTS - REL (CELLAVISION)(BEAKER) 3 % 0-0 H (test code = 2827) ATYPICAL LYMPHOCYTES - REL 3 % 0-0 H (CELLAVISION)(BEAKER) (test code = 2829) NEUTROPHILS - ABS 1.93 K/ul 1.78-5.38 (CELLAVISION)(BEAKER) (test code = 2830) LYMPHOCYTES - ABS 1.56 K/ul 1.32-3.57 (CELLAVISION)(BEAKER) (test code = 2831) MONOCYTES - ABS 0.28 K/uL 0.30-0.82 L (CELLAVISION)(BEAKER) (test code = 2832) EOSINOPHILS - ABS 0.18 K/uL 0.04-0.54 (CELLAVISION)(BEAKER) (test code = 2834) BASOPHILS - ABS 0.18 K/uL 0.01-0.08 H (CELLAVISION)(BEAKER) (test code = 2835) PROMYELOCYTES - ABS 0.09 K/uL 0.00-0.00 H (CELLAVISION)(BEAKER) (test code = 2838) BANDS - ABS (CELLAVISION)(BEAKER) 4.42 K/uL 0.00-0.80 H (test code = 2840) BLASTS - ABS (CELLAVISION)(BEAKER) 0.28 K/uL 0.00-0.00 H (test code = 2845) ATYPICAL LYMPHOCYTES - ABS 0.28 K/uL 0.00-0.00 H (CELLAVISION)(BEAKER) (test code = 2858) TOTAL COUNTED (BEAKER) (test code = 100 1351) CLUMPED PLATELETS (BEAKER) (test Present code = 436) SMUDGE CELLS (BEAKER) (test code = Present 1371) GIANT PLATELETS (BEAKER) (test code Present = 313) POLYCHROMATOPHILLIC RBCS(BEAKER) 1+ few (test code = 478) HYPOCHROMIA (BEAKER) (test code = 1+ few 963) ANISOCYTOSIS (BEAKER) (test code = 1+ few 961) MICROCYTES (BEAKER) (test code = 1+ few 965) POIKILOCYTES (BEAKER) (test code = 1+ few 966) ROULEAUX (BEAKER) (test code = 763) 3+ many TARGET CELLS (BEAKER) (test code = 1+ few 480) SCHISTOCYTES (BEAKER) (test code = 1+ few 765) PLATELET CONCENTRATION Adequate (CELLAVISION)(BEAKER) (test code = 3438) Received comment: User comments: Slide comments:CBC W/PLT COUNT & AUTO [id number] 03:26:00 Test Item Value Reference Range Interpretation Comments WHITE BLOOD CELL COUNT (BEAKER) 9.2 K/ L 3.5-10.5 (test code = 775) RED BLOOD CELL COUNT (BEAKER) 7.15 M/ L 4.63-6.08 H (test code = 761) HEMOGLOBIN (BEAKER) (test code = 13.3 GM/DL 13.7-17.5 L 410) HEMATOCRIT (BEAKER) (test code = 46.1 % 40.1-51.0 411) MEAN CORPUSCULAR VOLUME (BEAKER) 64.5 fL 79.0-92.2 L (test code = 753) MEAN CORPUSCULAR HEMOGLOBIN 18.6 pg 25.7-32.2 L (BEAKER) (test code = 751) MEAN CORPUSCULAR HEMOGLOBIN CONC 28.9 GM/DL 32.3-36.5 L (BEAKER) (test code = 752) RED CELL DISTRIBUTION WIDTH 17.8 % 11.6-14.4 H (BEAKER) (test code = 412) PLATELET COUNT (BEAKER) (test 239 K/CU MM 150-450 code = 756) MEAN PLATELET VOLUME (BEAKER) 11.4 fL 9.4-12.4 (test code = 754) NUCLEATED RED BLOOD CELLS 0 /100 WBC 0-0 (BEAKER) (test code = 413) [id number] 03:23:00 Test Item Value Reference Range Interpretation Comments MAGNESIUM (BEAKER) 2.1 mg/dL 1.6-2.6 Specimen slightly (test code = 627) hemolyzed BASIC METABOLIC [id number] 03:23:00 Test Item Value Reference Range Interpretation Comments SODIUM (BEAKER) 149 meq/L 136-145 H (test code = 381) POTASSIUM (BEAKER) 4.7 meq/L 3.5-5.1 Specimen slightly (test code = 379) hemolyzed CHLORIDE (BEAKER) 113 meq/L 98-107 H (test code = 382) CO2 (BEAKER) (test 26 meq/L 22-29 code = 355) BLOOD UREA NITROGEN 32 mg/dL 7-21 H (BEAKER) (test code = 354) CREATININE (BEAKER) 2.15 mg/dL 0.57-1.25 H Specimen slightly (test code = 358) hemolyzed GLUCOSE RANDOM 117 mg/dL 70-105 H (BEAKER) (test code = 652) CALCIUM (BEAKER) 8.4 mg/dL 8.4-10.2 (test code = 697) EGFR (BEAKER) (test 36 mL/min/1.73 ESTIMA JUAN GFR IS code = 1092) sq m NOT ACCURATE CREATININE CLEARANCE IN PREDICTING GLOMERULAR FILTRATION RATE . ESTIMATED GFR I S NOT APPLICABLE FOR DIALYSIS PATIEN TS. POCT-GLUCOSE [id number] 22:54:00 Test Item Value Reference Range Interpretation Comments POC-GLUCOSE METER 106 mg/dL 70-110 TESTED AT [facility] 67[facility] ([facility]) (test code = [place] 1538) [address] POCT-GLUCOSE [id number] 12:21:00 Test Item Value Reference Range Interpretation Comments POC-GLUCOSE METER 85 mg/dL 70-110 TESTED AT [facility] [address] ([facility]) (test code = [facility] Boby [facility] [id number] 1538) CT, [id number] 10:13:00With oral contrastAddendum BeginsREPORT STATUS:A One area of questionable small bowel wall thickening is nonspecific but could be due to nondistention. Signed: Guillaume Kirk MDReport Verified Date/Time: 12/15/2018 10:13:27 Reading Location: [facility] Diagnostic Imaging Reading Room - [facility] F1 1129Addendum EndsFINAL REPORT TECHNIQUE: CT of the abdomen and pelvis WITHOUT intravenous contrast and WITHOUT oral contrast. Dose modulation, iterative reconstruction, and/or weight-based adjustment of the mA/kV was utilized to reduce the radiation dose to as low as reasonably achievable.INDICATION: Bowel obstruction low-grade suspected. COMPARISON: None. FINDINGS: ABSENCE OF INTRAVENOUS CONTRAST DECREASES SENSITIVITY FOR DETECTION OF FOCAL LESIONS AND VASCULAR PATHOLOGY. LOWER THORAX: Partially visualized bibasilar patchy opacities. HEPATOBILIARY: No focal hepatic lesions. Gallbladder is unremarkable. No biliary ductal dilatation.SPLEEN: No splenomegaly.PANCREAS: No focal masses orductal dilatation. ADRENALS: No adrenal nodules.KIDNEYS/URETERS: Not hydronephrosis or exophytic masses. A right interpolar nonobstructing stone measures 0.2 cm. The vertebral pole renal cyst measures 3.4 cm. A right lower pole renal cyst measures 1.5 cm.PELVIC ORGANS/BLADDER: The gas in the bladder is likely due to recent prior instrumentation. PERITONEUM/RETROPERITONEUM: No free air or fluid.LYMPH NODES: No lymphadenopathy.VESSELS: There is some mild engorgement of the vasculature and some of thisportion of small bowel, possibly also cause by the adhesion. Mild aortic calcification. GI TRACT: There is a proximal small bowel are markedly thickened with an area of focal transition in the left lower quadrant. There are multiple narrowed loops of bowel in this region. This is most likely a stricture which is likely due to a high-grade, possibly complete small bowel obstruction. There are several scattered small bowel diverticula. The largest is a diverticulum of the second portion of the duodenum. A questionable area of thickening is seen in the proximal jejunum on coronal image 28. The duodenum does not fully cross midline, and there are multiple surgical clips in the mesentery. Prior subtotal colectomy. Mild diverticulosis of the residual colon. NG tube with tip in the gastric antrum. BONESAND SOFT TISSUES: The bones are diffusely demineralized. Leftward convex curvature of the lumbar spine. Grade 1 anterolisthesis of L4 on L5. IMPRESSION: 1.The findings are consistent with a complete small bowel obstruction caused by an adhesion in the left lower quadrant. 2.Some engorgement of the vasculature adjacent to small bowel loops is also likely caused by the adhesion. There is some mild distortion of the vasculature leading to this region. However, there is no true complete rotation of thevasculature. This engorgement is likely due to the adhesion. 3.Multiple small bowel diverticula. 4.The patient has had a prior subtotal colectomy. The distortion of the small bowel anatomy and minimal twisting of the mesenteric vasculature while nonspecific may be due to distortion of the abdominal anatomy after subtotal colectomy. 5.The bibasilar patchy opacities could be due to pneumonia or aspiration. 6.A right interpolar nonobstructing stone measures 0.2 cm. Signed: Guillaume Kirk Verified Date/Time: 12/15/2018 08:01:53 Reading Location: [facility] Diagnostic Imaging Reading Room - [place] [address] RAD, ABDOMEN/KUB, 1 VIEW [id number] 09:38:00Reason for exam:- >Assess progression of contrast from CT yestShould this be performed at the bedside?->YesFINAL REPORT RAD, ABDOMEN/KUB, 1 VIEW AP CLINICAL INDICATION: Assess progression of contrast from CT yest COMPARISON: December 13, 2018 TECHNIQUE: Single, frontal radiograph of the abdomen. IMPRESSION:The bowel gas pattern is nonspecific, but nonobstructive. No enteric contrastis identified. There is no visible pneumatosis. Positioning of the nasogastric tube is stable. The regional skeleton is intact. Signed: JR Bruce Robert MDReport Verified Date/Time: 12/15/201809:38:11 Reading Location: [facility] Radiology Reading Room [id number] 06:58:00 Test Item Value Reference Range Interpretation Comments MAGNESIUM (BEAKER) (test code = 2.1 mg/dL 1.6-2.6 627) BASIC METABOLIC [id number] 06:58:00 Test Item Value Reference Range Interpretation Comments SODIUM (BEAKER) 148 meq/L 136-145 H (test code = 381) POTASSIUM (BEAKER) 3.4 meq/L 3.5-5.1 L (test code = 379) CHLORIDE (BEAKER) 113 meq/L 98-107 H (test code = 382) CO2 (BEAKER) (test 25 meq/L 22-29 code = 355) BLOOD UREA NITROGEN 31 mg/dL 7-21 H (BEAKER) (test code = 354) CREATININE (BEAKER) 1.70 mg/dL 0.57-1.25 H (test code = 358) GLUCOSE RANDOM 89 mg/dL 70-105 (BEAKER) (test code = 652) CALCIUM (BEAKER) 8.1 mg/dL 8.4-10.2 L (test code = 697) EGFR (BEAKER) (test 48 mL/min/1.73 ESTIMA JUAN GFR IS code = 1092) sq m NOT ACCURATE CREATININE CLEARANCE IN PREDICTING GLOMERULAR FILTRATION RATE . ESTIMATED GFR I S NOT APPLICABLE FOR DIALYSIS PATIEN TS. POCT-GLUCOSE [id number] 06:25:00 Test Item Value Reference Range Interpretation Comments POC-GLUCOSE METER 97 mg/dL 70-110 TESTED AT [facility] ([facility] (test code = [place] [facility] [address] 1538) [id number] 05:34:00 Test Item Value Reference Range Interpretation Comments FERRITIN (BEAKER) (test code = 361) 693 ng/mL 5-275 H IRON, TIBC, % SAT. (WITHOUT FERRITIN)2018-12-15 05:27:00 Test Item Value Reference Range Interpretation Comments IRON (BEAKER) (test code = 547) 18.0 ug/dL 40.0-160.0 L TOTAL IRON BINDING CAPACITY 176 ug/dL 250-450 L (BEAKER) (test code = 769) IRON % SATURATION (2) (BEAKER) 10 % 20-55 L (test code = 2590) CBC W/PLT COUNT & AUTO [id number] 04:50:00 Test Item Value Reference Range Interpretation Comments WHITE BLOOD CELL COUNT (BEAKER) 10.7 K/ L 3.5-10.5 H (test code = 775) RED BLOOD CELL COUNT (BEAKER) 6.20 M/ L 4.63-6.08 H (test code = 761) HEMOGLOBIN (BEAKER) (test code = 11.5 GM/DL 13.7-17.5 L 410) HEMATOCRIT (BEAKER) (test code = 39.3 % 40.1-51.0 L 411) MEAN CORPUSCULAR VOLUME (BEAKER) 63.4 fL 79.0-92.2 L (test code = 753) MEAN CORPUSCULAR HEMOGLOBIN 18.5 pg 25.7-32.2 L (BEAKER) (test code = 751) MEAN CORPUSCULAR HEMOGLOBIN CONC 29.3 GM/DL 32.3-36.5 L (BEAKER) (test code = 752) RED CELL DISTRIBUTION WIDTH 17.0 % 11.6-14.4 H (BEAKER) (test code = 412) PLATELET COUNT (BEAKER) (test 195 K/CU MM 150-450 code = 756) MEAN PLATELET VOLUME (BEAKER) 11.0 fL 9.4-12.4 (test code = 754) NUCLEATED RED BLOOD CELLS 0 /100 WBC 0-0 (BEAKER) (test code = 413) NEUTROPHILS RELATIVE PERCENT 77 % (BEAKER) (test code = 429) LYMPHOCYTES RELATIVE PERCENT 12 % (BEAKER) (test code = 430) MONOCYTES RELATIVE PERCENT 8 % (BEAKER) (test code = 431) EOSINOPHILS RELATIVE PERCENT 2 % (BEAKER) (test code = 432) BASOPHILS RELATIVE PERCENT 0 % (BEAKER) (test code = 437) NEUTROPHILS ABSOLUTE COUNT 8.27 K/ L 1.78-5.38 H (BEAKER) (test code = 670) LYMPHOCYTES ABSOLUTE COUNT 1.30 K/ L 1.32-3.57 L (BEAKER) (test code = 414) MONOCYTES ABSOLUTE COUNT (BEAKER) 0.86 K/ L 0.30-0.82 H (test code = 415) EOSINOPHILS ABSOLUTE COUNT 0.18 K/ L 0.04-0.54 (BEAKER) (test code = 416) BASOPHILS ABSOLUTE COUNT (BEAKER) 0.02 K/ L 0.01-0.08 (test code = 417) IMMATURE GRANULOCYTES-RELATIVE 1 % 0-1 PERCENT (BEAKER) (test code = 2801) POCT-GLUCOSE [id number] 18:23:00 Test Item Value Reference Range Interpretation Comments POC-GLUCOSE METER 127 mg/dL 70-110 H TESTED AT [facility] [address] (BEAKER) (test code = [place] 1538) [id number] CBC W/PLT COUNT & AUTO [id number] 13:34:00 Test Item Value Reference Range Interpretation Comments WHITE BLOOD CELL COUNT 10.4 K/ L 3.5-10.5 (BEAKER) (test code = 775) RED BLOOD CELL COUNT 6.21 M/ L 4.63-6.08 H (BEAKER) (test code = 761) HEMOGLOBIN (BEAKER) 11.7 GM/DL 13.7-17.5 L (test code = 410) HEMATOCRIT (BEAKER) 38.4 % 40.1-51.0 L (test code = 411) MEAN CORPUSCULAR 61.8 fL 79.0-92.2 L VOLUME (BEAKER) (test code = 753) MEAN CORPUSCULAR 18.8 pg 25.7-32.2 L HEMOGLOBIN (BEAKER) (test code = 751) MEAN CORPUSCULAR 30.5 GM/DL 32.3-36.5 L HEMOGLOBIN CONC (BEAKER) (test code = 752) RED CELL DISTRIBUTION 17.1 % 11.6-14.4 H WIDTH (BEAKER) (test code = 412) PLATELET COUNT 175 K/CU MM 150-450 (BEAKER) (test code = 756) MEAN PLATELET VOLUME Unable to report due (BEAKER) (test code = to abn ormal Platelet 754) population distribution. NUCLEATED RED BLOOD 0 /100 WBC 0-0 CELLS (BEAKER) (test code = 413) (MANUAL DIFFERENTIAL)2018-12-14 13:34:00 Test Item Value Reference Range Interpretation Comments NEUTROPHILS - REL (DIFF) (BEAKER) 73 % (test code = 1359) LYMPHOCYTES - REL (DIFF) (BEAKER) 13 % (test code = 1360) MONOCYTES - REL (DIFF) (BEAKER) 5 % (test code = 1361) EOSINOPHILS - REL (DIFF) (BEAKER) 4 % (test code = 1362) BANDS - REL (DIFF) (BEAKER) (test 5 % 0-10 code = 1348) NEUTROPHILS - ABS (DIFF) (BEAKER) 7.59 K/ L 1.80-8.00 (test code = 1365) LYMPHOCYTES - ABS (DIFF) (BEAKER) 1.35 K/ L 1.48-4.50 L (test code = 1366) MONOCYTES - ABS (DIFF) (BEAKER) 0.52 K/ L 0.00-1.30 (test code = 1367) EOSINOPHILS - ABS (DIFF) (BEAKER) 0.42 K/ L 0.00-0.50 (test code = 1368) BANDS-ABS (DIFF) (BEAKER) (test 0.5 K/ L 0.0-0.8 code = 1349) TOTAL COUNTED (BEAKER) (test code = 100 1351) BANDS + SEGMENTED NEUTROPHILS 8.11 (BEAKER) (test code = 1352) WBC MORPHOLOGY (BEAKER) (test code Normal = 487) PLT MORPHOLOGY (BEAKER) (test code Normal = 486) HYPOCHROMIA (BEAKER) (test code = 1+ few 963) TARGET CELLS (BEAKER) (test code = 1+ few 480) POCT-GLUCOSE [id number] 13:08:00 Test Item Value Reference Range Interpretation Comments POC-GLUCOSE METER 135 mg/dL 70-110 H TESTED AT [facility] [address] (BEAKER) (test code = [place] 1538) [id number] 06:13:00 Test Item Value Reference Range Interpretation Comments MAGNESIUM (BEAKER) (test code = 2.5 mg/dL 1.6-2.6 627) BASIC METABOLIC [id number] 06:13:00 Test Item Value Reference Range Interpretation Comments SODIUM (BEAKER) 148 meq/L 136-145 H (test code = 381) POTASSIUM (BEAKER) 3.6 meq/L 3.5-5.1 (test code = 379) CHLORIDE (BEAKER) 111 meq/L 98-107 H (test code = 382) CO2 (BEAKER) (test 29 meq/L 22-29 code = 355) BLOOD UREA NITROGEN 43 mg/dL 7-21 H (BEAKER) (test code = 354) CREATININE (BEAKER) 2.05 mg/dL 0.57-1.25 H (test code = 358) GLUCOSE RANDOM 136 mg/dL 70-105 H (BEAKER) (test code = 652) CALCIUM (BEAKER) 8.4 mg/dL 8.4-10.2 (test code = 697) EGFR (BEAKER) (test 39 mL/min/1.73 ESTIMA JUAN GFR IS code = 1092) sq m NOT ACCURATE CREATININE CLEARANCE IN PREDICTING GLOMERULAR FILTRATION RATE . ESTIMATED GFR I S NOT APPLICABLE FOR DIALYSIS PATIEN TS. POCT-GLUCOSE [id number] 23:25:00 Test Item Value Reference Range Interpretation Comments POC-GLUCOSE METER 126 mg/dL 70-110 H TESTED AT [facility] [address] (BEAKER) (test [facility] = [facility] [place] [facility]) [id number] 16:50:00 Test Item Value Reference Range Interpretation Comments MAGNESIUM (BEAKER) (test code = 2.1 mg/dL 1.6-2.6 627) BASIC METABOLIC [id number] 16:50:00 Test Item Value Reference Range Interpretation Comments SODIUM (BEAKER) 145 meq/L 136-145 (test code = 381) POTASSIUM (BEAKER) 4.1 meq/L 3.5-5.1 (test code = 379) CHLORIDE (BEAKER) 111 meq/L 98-107 H (test code = 382) CO2 (BEAKER) (test 25 meq/L 22-29 code = 355) BLOOD UREA NITROGEN 57 mg/dL 7-21 H (BEAKER) (test code = 354) CREATININE (BEAKER) 2.52 mg/dL 0.57-1.25 H (test code = 358) GLUCOSE RANDOM 152 mg/dL 70-105 H (BEAKER) (test code = 652) CALCIUM (BEAKER) 8.2 mg/dL 8.4-10.2 L (test code = 697) EGFR (BEAKER) (test 30 mL/min/1.73 ESTIMA JUAN GFR IS code = 1092) sq m NOT ACCURATE CREATININE CLEARANCE IN PREDICTING GLOMERULAR FILTRATION RATE . ESTIMATED GFR I S NOT APPLICABLE FOR DIALYSIS PATIEN TS. POCT-GLUCOSE [id number] 12:31:00 Test Item Value Reference Range Interpretation Comments POC-GLUCOSE METER 191 mg/dL 70-110 H TESTED AT [facility] 6720 (BEAKER) (test code = [facility] 1538) [id number] BASIC METABOLIC [id number] 09:27:00 Test Item Value Reference Range Interpretation Comments SODIUM (BEAKER) 142 meq/L 136-145 (test code = 381) POTASSIUM (BEAKER) 4.0 meq/L 3.5-5.1 Specimen moderately (test code = 379) hemolyzed CHLORIDE (BEAKER) 115 meq/L 98-107 H (test code = 382) CO2 (BEAKER) (test 18 meq/L 22-29 L code = 355) BLOOD UREA NITROGEN 62 mg/dL 7-21 H (BEAKER) (test code = 354) CREATININE (BEAKER) 2.49 mg/dL 0.57-1.25 H Specimen moderately (test code = 358) hemolyzed GLUCOSE RANDOM 147 mg/dL 70-105 H (BEAKER) (test code = 652) CALCIUM (BEAKER) 7.2 mg/dL 8.4-10.2 L (test code = 697) EGFR (BEAKER) (test 31 mL/min/1.73 ESTIMA JUAN GFR IS code = 1092) sq m NOT ACCURATE CREATININE CLEARANCE IN PREDICTING GLOMERULAR FILTRATION RATE . ESTIMATED GFR I S NOT APPLICABLE FOR DIALYSIS PATIEN TS. RAD, ABDOMEN/KUB, 1 VIEW [id number] 08:56:00Reason for exam:->Nasogastric tube placementShould this be performed at the bedside?->YesFINAL REPORT RAD, ABDOMEN/KUB, 1 VIEW AP CLINICAL INDICATION: Nasogastric tube placement COMPARISON: None TECHNIQUE: Single, frontal radiograph of the abdomen. FINDINGS: The bowel gas pattern is nonspecific, but nonobstructive. Decreased gaseous distention status post placement of NG tube. No abnormal mass or ascites is detected. No significant calcifications are present. The regional skeleton is intact. IMPRESSION: Decreased gaseous distention status post placement of NG tube. Signed: [facility] Verified Date/Time: 12/13/2018 08:56:12 Reading Location:[facility]iology Reading Room RAD, ABDOMEN/KUB, 1 VIEW [id number] 08:26:00Reason for exam:->stomach distentionFINAL REPORT RAD, ABDOMEN/KUB, 1 VIEW AP CLINICAL INDICATION: stomach distention COMPARISON: None TECHNIQUE: Single, frontal radiograph of the abdomen. FINDINGS: The bowel gas pattern is nonspecific, but nonobstructive. Stomach and small bowel are gas- filled and further distended (increased from prior). Ileus cannot be excluded. No abnormal mass or ascites is detected. No significant calcifications are present. The regional skeleton is intact. IMPRESSION: Stomach and small bowel are gas-filled and further distended (increased from prior). Ileus cannot be excluded. Signed: Huseyin Metcalf MDReport Verified Date/Time: 12/13/2018 08:26:26 Reading Location: [facility] Radiology Reading Room POCT-GLUCOSE METER 2018-12-13 08:09:00 Test Item Value Reference Range Interpretation Comments POC-GLUCOSE METER 167 mg/dL 70-110 H TESTED AT [facility] 67[address] (BEAKER) (test code = [place] [address]) [id number] COMPREHENSIVE METABOLIC [id number] 07:34:00 Test Item Value Reference Range Interpretation Comments TOTAL PROTEIN 4.6 gm/dL 6.0-8.3 L (BEAKER) (test code = 770) ALBUMIN (BEAKER) 2.4 g/dL 3.5-5.0 L (test code = 1145) ALKALINE PHOSPHATASE 34 U/L 40-150 L (BEAKER) (test code = 346) BILIRUBIN TOTAL 0.3 mg/dL 0.2-1.2 (BEAKER) (test code = 377) SODIUM (BEAKER) (test 144 meq/L 136-145 code = 381) POTASSIUM (BEAKER) 2.8 meq/L 3.5-5.1 L (test code = 379) CHLORIDE (BEAKER) 122 meq/L 98-107 H (test code = 382) CO2 (BEAKER) (test 15 meq/L 22-29 L code = 355) BLOOD UREA NITROGEN 53 mg/dL 7-21 H (BEAKER) (test code = 354) CREATININE (BEAKER) 1.88 mg/dL 0.57-1.25 H (test code = 358) GLUCOSE RANDOM 125 mg/dL 70-105 H (BEAKER) (test code = 652) CALCIUM (BEAKER) 5.4 mg/dL 8.4-10.2 LL (test code = 697) AST (SGOT) (BEAKER) 19 U/L 5-34 (test code = 353) ALT (SGPT) (BEAKER) 38 U/L 6-55 (test code = 347) EGFR (BEAKER) (test 43 mL/min/1.73 ESTIMA JUAN GFR IS code = 1092) sq m NOT ACCURATE CREATININE CLEARANCE IN PREDICTING GLOMERULAR FILTRATION RATE . ESTIMATED GFR I S NOT APPLICABLE FOR DIALYSIS PATIEN TS. CBC (HEMOGRAM ONLY)2018-12-13 06:23:00 Test Item Value Reference Range Interpretation Comments WHITE BLOOD CELL COUNT (BEAKER) 4.5 K/ L 3.5-10.5 (test code = 775) RED BLOOD CELL COUNT (BEAKER) 6.19 M/ L 4.63-6.08 H (test code = 761) HEMOGLOBIN (BEAKER) (test code = 11.6 GM/DL 13.7-17.5 L 410) HEMATOCRIT (BEAKER) (test code = 38.4 % 40.1-51.0 L 411) MEAN CORPUSCULAR VOLUME (BEAKER) 62.0 fL 79.0-92.2 L (test code = 753) MEAN CORPUSCULAR HEMOGLOBIN 18.7 pg 25.7-32.2 L (BEAKER) (test code = 751) MEAN CORPUSCULAR HEMOGLOBIN CONC 30.2 GM/DL 32.3-36.5 L (BEAKER) (test code = 752) RED CELL DISTRIBUTION WIDTH 17.1 % 11.6-14.4 H (BEAKER) (test code = 412) PLATELET COUNT (BEAKER) (test 184 K/CU MM 150-450 code = 756) NUCLEATED RED BLOOD CELLS 0 /100 WBC 0-0 (BEAKER) (test code = 413) POCT-GLUCOSE [id number] 22:28:00 Test Item Value Reference Range Interpretation Comments POC-GLUCOSE METER 122 mg/dL 70-110 H TESTED AT [place] [address] ([facility]) (test code = [place] 15[address]) [id number] POCT-GLUCOSE [id number] 18:06:00 Test Item Value Reference Range Interpretation Comments POC-GLUCOSE METER 146 mg/dL 70-110 H TESTED AT [place] [address] ([facility]) (test code = [place] 15[address]) [id number] 17:43:00 Test Item Value Reference Range Interpretation Comments ACTIVATED CLOTTING TIME 120 sec TEST ED AT [place] [address] (BEAKER) (test code = [place] [address]) [address] TROPONIN [id number] 13:42:00 Test Item Value Reference Range Interpretation Comments TROPONIN I (BEAKER) (test code = 0.02 ng/mL 0.00-0.03 397) Troponin I (TnI) levels must be interpreted in the context of the presenting symptoms and the clinical findings. Elevated TnI levels indicate myocardial damage, but are not specific for ischemic heart disease. Elevated TnI levels are seen in patients with other cardiac conditions (including myocarditis and congestive heart failure), and slight TnI elevations occur in patients with other conditions, including sepsis, renal failure, acidosis, acute neurological disease, and persistent tachyarrhythmia.[id number] 11:41:00 Test Item Value Reference Range Interpretation Comments PARTIAL THROMBOPLASTIN TIME 66.8 seconds 22.5-36.0 H (BEAKER) (test code = 760) RAD, ABDOMEN/KUB, 1 VIEW [id number] 10:05:00Reason for exam:->small bowel obstructionShould this be performed at the bedside?->YesFINAL REPORT RAD, ABDOMEN/KUB, 1 VIEW AP CLINICAL INDICATION: small bowel obs truction COMPARISON: None TECHNIQUE: Single, frontal radiograph of the abdomen. FINDINGS: The bowel gas pattern is nonspecific, but nonobstructive. Stomach and small bowel are gas-filled and mildly distended. Ileus cannot be excluded. No abnormal mass or ascites is detected. No significant calcifications are present. The regional skeleton is intact. IMPRESSION: Nonspecific, nonobstructive bowelgas pattern. Stomach and small bowel are gas-filled and mildly distended. Ileus cannot be excluded. Signed: Huseyin Metcalf MDReport Verified Date/Time: 12/12/2018 10:05:00 Reading Location: [facility] Radiology Reading Room COMPREHENSIVE METABOLIC [id number] 08:18:00 Test Item Value Reference Range Interpretation Comments TOTAL PROTEIN 8.4 gm/dL 6.0-8.3 H Specimen sligh tly (BEAKER) (test code = hemoly zed 770) ALBUMIN (BEAKER) 4.0 g/dL 3.5-5.0 Specimen sl ightly (test code = 1145) hemolyzed ALKALINE PHOSPHATASE 55 U/L 40-150 (BEAKER) (test code = 346) BILIRUBIN TOTAL 0.3 mg/dL 0.2-1.2 Specimen sli ghtly (BEAKER) (test code = hemoly zed 377) SODIUM (BEAKER) (test 138 meq/L 136-145 code = 381) POTASSIUM (BEAKER) 4.7 meq/L 3.5-5.1 Specimen slightly (test code = 379) hemolyzed CHLORIDE (BEAKER) 105 meq/L 98-107 (test code = 382) CO2 (BEAKER) (test 17 meq/L 22-29 L code = 355) BLOOD UREA NITROGEN 73 mg/dL 7-21 H (BEAKER) (test code = 354) CREATININE (BEAKER) 4.36 mg/dL 0.57-1.25 H Specimen slightly (test code = 358) hemolyzed GLUCOSE RANDOM 128 mg/dL 70-105 H (BEAKER) (test code = 652) CALCIUM (BEAKER) 8.7 mg/dL 8.4-10.2 (test code = 697) AST (SGOT) (BEAKER) 60 U/L 5-34 H Specimen slightly (test code = 353) hemolyzed ALT (SGPT) (BEAKER) 86 U/L 6-55 H Specimen slightly (test code = 347) hemolyzed EGFR (BEAKER) (test 16 mL/min/1.73 ESTIMA JUAN GFR IS code = 1092) sq m NOT ACCURATE CREATININE CLEARANCE IN PREDICTING GLOMERULAR FILTRATION RATE . ESTIMATED GFR I S NOT APPLICABLE FOR DIALYSIS PATIEN TS. TROPONIN [id number] 07:33:00 Test Item Value Reference Range Interpretation Comments TROPONIN I (BEAKER) (test code = 397) < ng/mL 0.00-0.03 Troponin I (TnI) levels must be interpreted in the context of the presenting symptoms and the clinical findings. Elevated TnI levels indicate myocardial damage, but are not specific for ischemic heart disease. Elevated TnI levels are seen in patients with other cardiac conditions (including myocarditis and congestive heart failure), and slight TnI elevations occur in patients with other conditions, including sepsis, renal failure, acidosis, acute neurological disease, and persistent tachyarrhythmia.BASIC METABOLIC [id number] 07:26:00 Test Item Value Reference Range Interpretation Comments SODIUM (BEAKER) 137 meq/L 136-145 (test code = 381) POTASSIUM (BEAKER) 4.6 meq/L 3.5-5.1 Specimen slightly (test code = 379) hemolyzed CHLORIDE (BEAKER) 105 meq/L 98-107 (test code = 382) CO2 (BEAKER) (test 17 meq/L 22-29 L code = 355) BLOOD UREA NITROGEN 74 mg/dL 7-21 H (BEAKER) (test code = 354) CREATININE (BEAKER) 4.38 mg/dL 0.57-1.25 H Specimen slightly (test code = 358) hemolyzed GLUCOSE RANDOM 126 mg/dL 70-105 H (BEAKER) (test code = 652) CALCIUM (BEAKER) 8.7 mg/dL 8.4-10.2 (test code = 697) EGFR (BEAKER) (test 16 mL/min/1.73 ESTIMA JUAN GFR IS code = 1092) sq m NOT ACCURATE CREATININE CLEARANCE IN PREDICTING GLOMERULAR FILTRATION RATE . ESTIMATED GFR I S NOT APPLICABLE FOR DIALYSIS PATIEN TS. CBC (HEMOGRAM ONLY)2018-12-12 06:20:00 Test Item Value Reference Range Interpretation Comments WHITE BLOOD CELL COUNT (BEAKER) 10.4 K/ L 3.5-10.5 (test code = 775) RED BLOOD CELL COUNT (BEAKER) 7.39 M/ L 4.63-6.08 H (test code = 761) HEMOGLOBIN (BEAKER) (test code = 13.9 GM/DL 13.7-17.5 410) HEMATOCRIT (BEAKER) (test code = 45.6 % 40.1-51.0 411) MEAN CORPUSCULAR VOLUME (BEAKER) 61.7 fL 79.0-92.2 L (test code = 753) MEAN CORPUSCULAR HEMOGLOBIN 18.8 pg 25.7-32.2 L (BEAKER) (test code = 751) MEAN CORPUSCULAR HEMOGLOBIN CONC 30.5 GM/DL 32.3-36.5 L (BEAKER) (test code = 752) RED CELL DISTRIBUTION WIDTH 18.4 % 11.6-14.4 H (BEAKER) (test code = 412) PLATELET COUNT (BEAKER) (test 223 K/CU MM 150-450 code = 756) NUCLEATED RED BLOOD CELLS 0 /100 WBC 0-0 (BEAKER) (test code = 413) [id number] 06:07:00 Test Item Value Reference Range Interpretation Comments PARTIAL THROMBOPLASTIN TIME 82.8 seconds 22.5-36.0 H (BEAKER) (test code = 760) TROPONIN [id number] 22:44:00 Test Item Value Reference Range Interpretation Comments TROPONIN I (BEAKER) (test code = 0.02 ng/mL 0.00-0.03 397) Troponin I (TnI) levels must be interpreted in the context of the presenting symptoms and the clinical findings. Elevated TnI levels indicate myocardial damage, but are not specific for ischemic heart disease. Elevated TnI levels are seen in patients with other cardiac conditions (including myocarditis and congestive heart failure), and slight TnI elevations occur in patients with other conditions, including sepsis, renal failure, acidosis, acute neurological disease, and persistent tachyarrhythmia.B-TYPE NATRIURETIC FACTOR (BNP) 2018-12-11 22:43:00 Test Item Value Reference Range Interpretation Comments B-TYPE NATRIURETIC PEPTIDE (BEAKER) 16 pg/mL 0-100 (test code = 700) COMPREHENSIVE METABOLIC [id number] 22:37:00 Test Item Value Reference Range Interpretation Comments TOTAL PROTEIN 9.8 gm/dL 6.0-8.3 H Specimen sligh tly (BEAKER) (test code = hemoly zed 770) ALBUMIN (BEAKER) 4.5 g/dL 3.5-5.0 Specimen sl ightly (test code = 1145) hemolyzed ALKALINE PHOSPHATASE 66 U/L 40-150 (BEAKER) (test code = 346) BILIRUBIN TOTAL 0.3 mg/dL 0.2-1.2 Specimen sli ghtly (BEAKER) (test code = hemoly zed 377) SODIUM (BEAKER) (test 137 meq/L 136-145 code = 381) POTASSIUM (BEAKER) 4.7 meq/L 3.5-5.1 Specimen slightly (test code = 379) hemolyzed CHLORIDE (BEAKER) 100 meq/L 98-107 (test code = 382) CO2 (BEAKER) (test 18 meq/L 22-29 L code = 355) BLOOD UREA NITROGEN 76 mg/dL 7-21 H (BEAKER) (test code = 354) CREATININE (BEAKER) 5.55 mg/dL 0.57-1.25 H Specimen slightly (test code = 358) hemolyzed GLUCOSE RANDOM 110 mg/dL 70-105 H (BEAKER) (test code = 652) CALCIUM (BEAKER) 9.3 mg/dL 8.4-10.2 (test code = 697) AST (SGOT) (BEAKER) 86 U/L 5-34 H Specimen slightly (test code = 353) hemolyzed ALT (SGPT) (BEAKER) 101 U/L 6-55 H Specimen slightly (test code = 347) hemolyzed EGFR (BEAKER) (test 12 mL/min/1.73 ESTIMA JUAN GFR IS code = 1092) sq m NOT ACCURATE CREATININE CLEARANCE IN PREDICTING GLOMERULAR FILTRATION RATE . ESTIMATED GFR I S NOT APPLICABLE FOR DIALYSIS PATIEN TS. [id number] 22:28:00 Test Item Value Reference Range Interpretation Comments PARTIAL THROMBOPLASTIN TIME 26.5 seconds 22.5-36.0 (BEAKER) (test code = 760) Prior to initiating heparinCBC W/PLT COUNT & AUTO [id number] 22:22:00 Test Item Value Reference Range Interpretation Comments WHITE BLOOD CELL COUNT 10.2 K/ L 3.5-10.5 (BEAKER) (test code = 775) RED BLOOD CELL COUNT 7.46 M/ L 4.63-6.08 H (BEAKER) (test code = 761) HEMOGLOBIN (BEAKER) 13.9 GM/DL 13.7-17.5 (test code = 410) HEMATOCRIT (BEAKER) 45.6 % 40.1-51.0 (test code = 411) MEAN CORPUSCULAR 61.1 fL 79.0-92.2 L VOLUME (BEAKER) (test code = 753) MEAN CORPUSCULAR 18.6 pg 25.7-32.2 L HEMOGLOBIN (BEAKER) (test code = 751) MEAN CORPUSCULAR 30.5 GM/DL 32.3-36.5 L HEMOGLOBIN CONC (BEAKER) (test code = 752) RED CELL DISTRIBUTION 18.3 % 11.6-14.4 H WIDTH (BEAKER) (test code = 412) PLATELET COUNT 221 K/CU MM 150-450 (BEAKER) (test code = 756) MEAN PLATELET VOLUME Unable to report due (BEAKER) (test code = to abn ormal Platelet 754) population distribution. NUCLEATED RED BLOOD 0 /100 WBC 0-0 CELLS (BEAKER) (test code = 413) NEUTROPHILS RELATIVE 78 % PERCENT (BEAKER) (test code = 429) LYMPHOCYTES RELATIVE 10 % PERCENT (BEAKER) (test code = 430) MONOCYTES RELATIVE 11 % PERCENT (BEAKER) (test code = 431) EOSINOPHILS RELATIVE 1 % PERCENT (BEAKER) (test code = 432) BASOPHILS RELATIVE 0 % PERCENT (BEAKER) (test code = 437) NEUTROPHILS ABSOLUTE 7.88 K/ L 1.78-5.38 H COUNT (BEAKER) (test code = 670) LYMPHOCYTES ABSOLUTE 1.01 K/ L 1.32-3.57 L COUNT (BEAKER) (test code = 414) MONOCYTES ABSOLUTE 1.14 K/ L 0.30-0.82 H COUNT (BEAKER) (test code = 415) EOSINOPHILS ABSOLUTE 0.07 K/ L 0.04-0.54 COUNT (BEAKER) (test code = 416) BASOPHILS ABSOLUTE 0.03 K/ L 0.01-0.08 COUNT (BEAKER) (test code = 417) IMMATURE 0 % 0-1 GRANULOCYTES-RELATIVE PERCENT (BEAKER) (test code = 0997)
--- OUTSIDE RECORDS SUMMARY | 2020-05-19 11:18 | XMS REPORT | Summary of Care ---
:1940 Author Organization [facility] - [facility] Address [address] [place] [id number] Care Team Providers Name Role Phone Pcp, Patient Does Not Have A Primary Care Provider [id number] Reason for Visit Reason Comments LAB Encounter Details Date Type Department Care Team Description 04/07/2020 Laboratory Only [facility] Nicolasa Salvador, TICKET DISPATCHER [address] [place] [address] Contact with or Medicine - [facility], Adc Fam Pob I exposure to viral [address] [facility] disease (P rimary Dx) [place] [address] Allergies No Known Allergiesdocumented as of this [...] Signs Not on filedocumented in this encounter Nursing Notes Flora Lai MA - 04/07/2020 12:20 PM CSTPerdasha Bassett is a 79 year old male here for a Rule Out Covid-19 Nasopharyngeal Swab. Patient educated on plan of care for visit, swabbing technique, risks and benefits of test and length of time to receive results. Verbal consent obtained to perform test. CDC Fact Sheet for Patients provided to patient. All droplet and contact precautions taken with appropriate PPE worn while interacting with patient. - Goggles - N95 Mask - Gloves - Gown RR=16 O2 Sat=97 Patient swabbed using appropriate nasopharyngeal technique, and patient tolerated well. Patient was discharged in stable condition. Flora Lai MA 04/07/2020 10:27 AM RAIT PHOTOGRAPHER documented in this encounter Plan of Treatment Name Type Priority Associated Diagnoses Order S chedule COVID-19 (MOLECULAR LAB Routine Contact with or expos ure Expected: 04/07/2020, TESTING to viral disease Expires: 2020 NUCLEIC ACID AMPLIFICATION) documented as of this encounter Results Not on filedocumented in this encounter Visit Diagnoses Diagnosis Contact with or exposure to viral diseas e - Primary Contact with or exposure to other viral diseases documented in this encounter Additional Health Concerns Infection Onset Date Last Indicated Resolved Time COVID-19 Rule Out 04/07/2020 04/07/2020 documented as of this encounter Insurance Payer Benefit Plan Subscriber ID Effective Phone Address Typ e / Group Dates [employer]ET[employer] - [employer] [id number] 2014-[address] Medic are Adv MANAGED MEDICARE [place] nt [id number] [place] [address] documented as of this encounter
[2020-05-19 13:02] LABS: Absolute Lymphocytes (CBC) 1.2 K/uL (0.7-4.9); Basophils % 1.2 % (0-1.3); Hematocrit 34.9 % (39.6-49.0); RBC Red Blood Cell Count 5.77 M/uL (4.33-5.43)
[2020-05-19] MEDS ORDERED: KETOROLAC 30 MG/ML INJ ONE (13:09)
[2020-05-19] MEDS ORDERED: METHYLPREDNISOLONE 125 MG INJ ONE (13:09)
[2020-05-19 13:29] LABS: Bilirubin Total 0.6 mg/dL (0.2-1.0); Potassium 4.1 mmol/L (3.5-5.1); Protein, Total 8.5 g/dL (6.4-8.2)
[2020-05-19 13:30] LABS: Albumin 3.5 g/dL (3.4-5.0)
[2020-05-19 13:38] LABS: Platelet Estimate ADEQ
[2020-05-19 13:39] LABS: Anisocytosis 1+; Basophilic Stippling 1+; Blood Morphology Comment NOTED (NOT SEEN); Hypochromasia 1+
--- NOTE | 2020-05-19 13:59 | ER ---
Nurse's Notes [facility] Name: Sukhwinder Bassett Age: 79 yrs Sex: Male : 1940 Arrival Date: 05/19/2020 Time: 11:18 Bed 20 Private MD: Diagnosis: Other specified arthritis, left knee Presentation: 05/19 11:29 Chief complaint: Patient states: L knee pain and swelling that began 3 days ago. No ss known injury. Coronavirus screen: Client denies travel out of the [place] in the last 14 days. Ebola Screen: Patient denies exposure to infectious person. Patient denies travel to an Ebola-affected area in the 21 days before illness onset. Initial Sepsis Screen: Does the patient meet any 2 criteria? No. Patient's initial sepsis screen is negative. Does the patient have a suspected source of infection? No. Patient's initial sepsis screen is negative. Risk Assessment: Do you want to hurt yourself or someone else? Patient reports no desire to harm self or others. Onset of symptoms was May 16, 2020. 11:29 Method Of Arrival: Wheelchair 11:29 Acuity: DIO 4 ss Historical: - Allergies: 11:32 No Known Allergies; ss - PMHx: 11:32 Hypertension; High Cholesterol; ss - PSHx: 11:32 colon surgery; ss - Immunization history:: Adult Immunizations up to date. - Social history:: Smoking status: Patient denies any tobacco usage or history of. Vital Signs: 11:29 BP 127 / 70; Pulse 87; Resp 16; Temp 99.0(TE); Pulse Ox 99% on R/A; Weight 83.91 kg; ss Height 6 ft. 0 in. (182.88 cm); Pain 8/10; 11:29 Body Mass Index 25.09 (83.91 kg, 182.88 cm) ED Course: 11:18 Patient arrived in ED. ds1 11:31 Triage completed. ss 11:32 Arm band placed on right wrist. 11:52 Johanna Iniguez MD is Attending Physician. ma2 12:38 Flora Hernandez, RN is Primary Nurse. 12:40 Inserted saline lock: 20 gauge in right wrist, using aseptic technique. Blood collected.jp3 12:40 First set of blood cultures drawn by me. jp3 12:45 Initial lab(s) drawn, by me, sent to lab. jp3 12:50 Second set of blood cultures drawn by me. Patient maintains SpO2 saturation greater jp3 than 95% on room air. 12:57 Placed in gown. Bed in low position. Call light in reach. Side rails up X2. Warm jp3 blanket given. Verbal reassurance given. Pulse ox on. NIBP on. 13:58 Aquiles Hernandez MD is Referral Physician. ma2 13:58 Preethi Marvin DO is Referral Physician. ma2 Administered Medications: 13:03 Drug: TORadol 30 mg Route: IVP; Site: right wrist; 19:20 Follow up: Response: No adverse reaction 13:03 Drug: MethylPrednisoLONE 125 mg Route: IVP; Site: right wrist; 19:20 Follow up: Response: No adverse reaction ah Outcome: 13:58 Discharge ordered by . ma2 14:34 Discharged to home ambulatory. 14:34 Condition: improved 14:34 Discharge instructions given to patient, Instructed on discharge instructions, follow up and referral plans. medication usage, Demonstrated understanding of instructions, follow-up care, medications, Prescriptions given X 2. 14:35 Patient left the ED. Signatures: Tamica Moon ds1 Carol Rouse, RN RN Johanna Iniguez MD MD ma2 Korey Chauhan jp3 Flora Hernandez, RN RN
--- NOTE | 2020-05-19 13:59 | EDPHYS ---
Physician Documentation [facility] Name: Sukhwinder Bassett Age: 79 yrs Sex: Male : 1940 Arrival Date: 05/19/2020 Time: 11:18 Bed 20 Private MD: ED Physician Johanna Iniguez HPI: 05/19 12:17 This 79 yrs old Black Male presents to ER via Wheelchair with complaints of Knee Pain - ma2 Swelling. 12:17 This 79 yrs old Black Male presents to ER via Wheelchair with complaints of Knee Pain - ma2 Swelling. 12:17 The patient presents with decreased range of motion, pain. The complaints affect the ma2 medial aspect of left knee. Onset: The symptoms/episode began/occurred gradually, 4 day(s) ago. Associated signs and symptoms: Pertinent negatives fever, numbness, tingling, vomiting, warmth. Severity of symptoms: At their worst the symptoms were very mild, in the emergency department the symptoms are unchanged. The patient has experienced similar episodes in the past, has been diagnosed with gout befor e. Historical: - Allergies: 11:32 No Known Allergies; ss - PMHx: 11:32 Hypertension; High Cholesterol; ss - PSHx: 11:32 colon surgery; ss - Immunization history:: Adult Immunizations up to date. - Social history:: Smoking status: Patient denies any tobacco usage or history of. ROS: 12:17 Constitutional: Negative for fever, chills, and weight loss. ma2 12:17 All other systems are negative. Exam: 12:17 Constitutional: This is a well developed, well nourished patient who is awake, alert, ma2 and in no acute distress. Neck: Trachea midline, no thyromegaly or masses palpated, and no cervical lymphadenopathy. Supple, full range of motion without nuchal rigidity, or vertebral point tenderness. No Meningismus. Chest/axilla: Normal chest wall appearance and motion. Nontender with no deformity. No lesions are appreciated. Cardiovascular: Regular rate and rhythm with a normal S1 and S2. No gallops, murmurs, or rubs. Normal PMI, no JVD. No pulse deficits. Respiratory: Lungs have equal breath sounds bilaterally, clear to auscultation and percussion. No rales, rhonchi or wheezes noted. No increased work of breathing, no retractions or nasal flaring. Abdomen/GI: Soft, non-tender, with normal bowel sounds. No distension or tympany. No guarding or rebound. No evidence of tenderness throughout. Back: No spinal tenderness. No costovertebral tenderness. Full range of motion. Skin: Warm, dry with normal turgor. Normal color with no rashes, no lesions, and no evidence of cellulitis. MS/ Extremity: left knee has mild effusion, no redness or increased warmth no tenderness, he is able to fully range it with no limitation, Pulses equal, no cyanosis. Neurovascular intact. Full, normal range of motion. Neuro: Awake and alert, GCS 15, oriented to person, place, time, and situation. Cranial nerves II-XII grossly intact. Motor strength 5/5 in all extremities. Sensory grossly intact. Cerebellar exam normal. Normal gait. Vital Signs: 11:29 BP 127 / 70; Pulse 87; Resp 16; Temp 99.0(TE); Pulse Ox 99% on R/A; Weight 83.91 kg; ss Height 6 ft. 0 in. (182.88 cm); Pain 8/10; 11:29 Body Mass Index 25.09 (83.91 kg, 182.88 cm) ss MDM: 11:53 Patient medically screened. ma2 12:17 Differential diagnosis: abrasion, tendonitis, likley gout, very low probability for ma2 septic knee given prior similar history and gout and no clinically tenderness or signs of infection such as redness or increased warmth.. hoiwever will get lab and he will need close follow up. 13:55 Data reviewed: vital signs, nurses notes. Counseling: I had a detailed discussion with ma2 the patient and/or guardian regarding: the historical points, exam findings, and any diagnostic results supporting the discharge/admit diagnosis, the presence of at least one elevated blood pressure reading (>120/80) during this emergency department visit, the need for outpatient follow up. Response to treatment: the patient's symptoms have markedly improved after treatment. ED course: patient has low probability for septic knee, per magalie criteria, although he has elevated ESR and CRP, yet wbc is wnl, no fever and he is able to do weight bearing. he will see orthopedics in the next 2 days and return to er for worsening or his symptoms or if it persist for more than 2 days for possible trending esr/crp and evaluation for emergency knee tap. I explained to him that I will be here in the next 2 days and will be able to see him in the er. . 05/19 12:02 Order name: CBC with Diff [facility] 05/19 12:02 Order name: CMP [facility] 05/19 12:02 Order name: Blood Culture Adult (2) [facility] 05/19 12:02 Order name: ESR; Complete Time: 13:52 [facility] 05/19 12:02 Order name: CRP; Complete Time: 13:52 [facility] 05/19 12:03 Order name: CBC with Automated Diff; Complete Time: 13:52 [facility] 05/19 12:03 Order name: Comprehensive Metabolic Panel; Complete Time: 13:52 [facility] 05/19 12:03 Order name: Blood Culture [facility] 05/19 13:39 Order name: Manual Differential; Complete Time: 13:52 [facility] Administered Medications: 13:03 Drug: TORadol 30 mg Route: IVP; Site: right wrist; 19:20 Follow up: Response: No adverse reaction 13:03 Drug: MethylPrednisoLONE 125 mg Route: IVP; Site: right wrist; 19:20 Follow up: Response: No adverse reaction Disposition: 05/19/20 13:58 Discharged to Home. Impression: Other specified arthritis, left knee. - Condition is Stable. - Discharge Instructions: Knee Arthrocentesis, Gout, [id number]. - Prescriptions for Colchicine- Probenecid 0.5-500 mg Oral Tablet - take 1 tablet by ORAL route every 1 hour up to 3 hours; 3 tablet. Medrol (Nikhil) 4 mg Oral Tablets, Dose Pack - take 1 tablet by ORAL route as directed - follow package instructions; 1 packet. - Medication Reconciliation Form, Thank You Letter, Antibiotic Education, Prescription Opioid Use form. - Follow up: Dr. Aquiles Hernandez; When: Tomorrow; Reason: Continuance of care. Follow up: Preethi Marvin; When: Tomorrow; Reason: If symptoms return. - Notes: return to er for any worsening of symptoms. follow up with orthopedic for possible joint fluid tap for diagnosis of gout. Signatures: Dispatcher [employer] [facility] Carol Rouse RN RN Johanna Iniguez MD MD ma2 Flora Hernandez, RN RN Corrections: (The following items were deleted from the chart) 14:35 13:58 05/19/2020 13:58 Discharged to Home. Impression: Other specified arthritis, left ah knee. Condition is Stable. Discharge Instructions: Knee Arthrocentesis, Gout, [id number]. Prescriptions for Colchicine-Probenecid 0.5-500 mg Oral Tablet - take 1 tablet by ORAL route every 1 hour up to 3 hours; 3 tablet, Medrol (Nikhil) 4 mg Oral Tablets, Dose Pack - take 1 tablet by ORAL route as directed - follow package instructions; 1 packet. and Forms are Medication Reconciliation Form, Thank You Letter, Antibiotic Education, Prescription Opioid Use. Follow up: Dr. Aquiles Hernandez; When: Tomorrow; Reason: Continuance of care. Follow up: Preethi Marvin; When: Tomorrow; Reason: If symptoms return. ma2
[2020-05-19 14:44] VITALS: BP 127/70; TEMP 99; O2SAT 99
== END 2020-05-19 14:35 | disposition home or self-care (01) ==
LOC: ER 11:15
DX: M17.12 Unilateral primary osteoarthritis, left knee (principal)
CPT/HCPCS: 87040 ×2; 85025; 36415; 85652; 80053; 86140; 96375; 96374; 99284; J2930

== ENCOUNTER 2021-09-29 08:07 | Emergency (ER) | payer OTHER ==
--- OUTSIDE RECORDS SUMMARY | 2021-09-29 08:11 | XMS REPORT | Continuity of Care Document ---
:1940 Author Organization [facility] t Address [address] [place] [address] Care Team Providers Name Role Phone Brian Marvin MD Primary Care Physician Doctor Unassigned, Name Attending Clinician Unavailable ZEYAD GUERRA Attending Clinician Unavailable Zeyad Marvin Attending Clinician EVELYNE Attending Clinician Unavailable Lab, Fam Pob I Attending Clinician Unavailable Evelyne INSTALLATION HELPER Attending Clinician ALEXANDRA Attending Clinician Unavailable FILIBERTO Admitting Clinician Unavailable ALEXANDRA Admitting Clinician Unavailable Payers Payer Name Policy Type Policy Number Effective Date Expiration Date S ource Problems This patient has no known problems. Allergies, Adverse Reactions, Alerts Allergy Allergy Status Severity Reaction(s) Onset Inactive Treating Comm ents Source Name Type Date Date Clinician NO KNOWN Drug Active Univers ALLERGIE Class ity of S [facility] NO KNOWN Allergy Active [facility] Social History Social Habit Start Date Stop Date Quantity Comments Source Exposure to Not sure [facility] SARS-CoV-2 (event) Medica l Branch Sex Assigned At [birth year] [facility] 00:00:00 00:00:00 [facility] Branch Smoking Status Start Date Stop Date Source Unknown if ever smoked [facility] Medications Ordered Filled Start Stop Current Ordering Indication Dosage Frequency Signature Comments Components Source Medication Medication Date Date Medication? Clinician (SIG) Name Name naproxen 2021- No 500mg 500 mg, Univ ers (NAPROSYN) 2-18 02-18 Oral, ity of tablet 500 19:30: 18:24 ONCE, 1 Dom[place] as mg 00 :00 dose, On Medical Fri Branch 06/06/21 at 1330, Routine naproxen Yes [id number] 500mg Take 1 Uni vers (NAPROSYN) 2-18 tablet by ity of 500 mg 00:00: mouth 2 [place] tablet 00 (two) Medical times Branch daily with meals. naproxen Yes [id number] 500mg Take 1 Uni vers (NAPROSYN) 2-18 tablet by ity of 500 mg 00:00: mouth 2 [place] tablet 00 (two) Medical times Branch daily with meals. ALLOPURINOL Yes Take by Un ar ORAL 9-16 mouth. ity of 13:03: [address] ALLOPURINOL Yes Take by Un ar ORAL 9-16 mouth. ity of 13:03: [address] ALLOPURINOL Yes Take by Un ar ORAL 9-16 mouth. ity of 08:03: [address] ALLOPURINOL Yes Take by Un ar ORAL 9-16 mouth. ity of 08:03: [address] naproxen Yes 550mg Take 1 Tab Un ar sodium 9-16 by mouth 2 ity of (ANAPROX) 00:00: (two) [place] 550 mg 00 times Medical tablet daily with Branch meals. naproxen Yes 550mg Take 1 Tab Un ar sodium 9-16 by mouth 2 ity of (ANAPROX) 00:00: (two) [place] 550 mg 00 times Medical tablet daily with Branch meals. naproxen Yes 550mg Take 1 Tab Un ar sodium 9-16 by mouth 2 ity of (ANAPROX) 00:00: (two) [place] 550 mg 00 times Medical tablet daily with Branch meals. naproxen Yes 550mg Take 1 Tab Un ar sodium 9-16 by mouth 2 ity of (ANAPROX) 00:00: (two) [place] 550 mg 00 times Medical tablet daily with Branch meals. colchicine Yes Take one Uni vers (COLCRYS) 7-25 tablet ity of 0.6 mg 00:00: every 12 [place] tablet 00 hours [facility] methylPREDN Yes 84mg Take 21 Uni vers ISolone 7-25 Tabs by ity of (MEDROL 00:00: mouth [place] DOSE-CYNTHIA) 4 00 SEE-INSTRU Me dical mg tablets CTIONS. Branch follow package directions colchicine Yes Take one Uni vers (COLCRYS) 7-25 tablet ity of 0.6 mg 00:00: every 12 [place] tablet 00 hours Medical Branch methylPREDN Yes 84mg Take 21 Uni vers ISolone 7-25 Tabs by ity of (MEDROL 00:00: mouth [place] DOSE-CYNTHIA) 4 00 SEE-INSTRU Me dical mg tablets CTIONS. Branch follow package directions colchicine Yes Take one Uni vers (COLCRYS) 7-25 tablet ity of 0.6 mg 00:00: every 12 [place] tablet 00 hours Medical Branch methylPREDN Yes 84mg Take 21 Uni vers ISolone 7-25 Tabs by ity of (MEDROL 00:00: mouth [place] DOSE-CYNTHIA) 4 00 SEE-INSTRU Me dical mg tablets CTIONS. Branch follow package directions colchicine Yes Take one Uni vers (COLCRYS) 7-25 tablet ity of 0.6 mg 00:00: every 12 [place] tablet 00 hours Medical Branch methylPREDN Yes 84mg Take 21 Uni vers ISolone 7-25 Tabs by ity of (MEDROL 00:00: mouth [place] DOSE-CYNTHIA) 4 00 SEE-INSTRU Me dical mg tablets CTIONS. Branch follow package directions Vital Signs Vital Name Observation Time Observation Value Comments Source Systolic blood 2021-06-06 18:25:39 152 mm[Hg] [facility] Diastolic blood 2021-06-06 18:25:39 95 mm[Hg] [facility] Heart rate 2021-06-06 18:25:39 66 /min [facility] Respiratory rate 2021-06-06 18:25:39 18 /min [facility] Oxygen saturation in 2021-06-06 18:25:39 100 /min [facility] Arterial blood by [facility] Pulse oximetry [place] Body temperature 2021-06-06 16:53:00 36.44 Lakisha [facility] Body weight 2021-06-06 16:53:00 95.709 kg [facility] BMI 2021-06-06 16:53:00 28.61 kg/m2 Universi ty of [facility] Procedures Procedure Date / Time Performing Clinician Source Performed MEDICATION CORRESPONDENCE 2021-06-27 06:01:00 Doctor Fredo, [facility] [place] [facility] XR KNEE 3 VW LEFT 2021-06-06 17:30:17 Germán Dee [facility] NOTICE OF PRIVACY 2021-06-06 16:50:30 Doctor Fredo, [facility] PRACTICES [place] [facility] CONSENT/REFUSAL FOR 2021-06-06 16:50:04 Doctor Fredo [facility] DIAGNOSIS AND TREATMENT [place] [facility] Encounters Start End Encounter Admission Attending Care Care Encounter Source Date/Time Date/Time Type Type Clinicians Facility Department ID 2021-06-27 2021-06-27 Orders Doctor GREER [id number] Univers 00:00:00 00:00:00 Only UnassignedSABIHA 350.1.13.10 ity of [place] [facility] 4.2.7.2.686 Domo as [phone] [facility] 009 Branch 2021-06-06 2021-06-06 Emergency X MARI, K [facility] ERT [id number] Univers 10:55:00 12:45:00 ity of [facility] 2021-06-06 2021-06-06 Emergency MariYi [facility] [id number] Univers 10:55:00 12:45:00 Zeyad ZAMAN 350.1.13.10 i ty [facility]2.7.2.686 [facility] [id number] [facility] 084 Branch 2020-04-07 2020-04-[address] [facility] [id number] Univers 12:20:00 12:20:00 NICOLASA ity [facility] 2020-04-07 2020-04-07 Laboratory Lab, Adc Fam Pob I [facility] 1.2. [id number] [id number] Univers 10:25:04 10:45:04 Only Nicolasa [facility] 350.1.13.10 ity of [place] 4.2.7.2.686 Domo as Professio [id number] La dical [address] Office [address] One 2020-04-07 2020-04-07 Laboratory Lab, Adc [facility] [id number] 10:25:04 10:45:04 Only Fam Pob I Health 350.1.13.10 [place] 4.2.7.2.686 Professio [id number] nal [facility] Office [facility] 2020-04-07 2020-04-07 Letter Doctor ZOEY [id number] Univers 00:00:00 00:00:00 (Out) Unassigned, SABIHA 350.1.13.10 ity of [place] [facility] 4.2.7.2.686 Domo as [phone] [facility] keven [address] [place] [address] 2020-04-07 2020-04-07 Letter Doctor ZOEY 1.2.840.114 [id number] 00:00:00 00:00:00 (Out) Unassigned, SABIHA 350.1.13.10 [place] [facility] 4.2.7.2.686 [id number] [id number] Results Test Description Test Time Test Comments Results Result Comments Source TISSUE EXAM 2018-12-22 Surgical Pathology 15:10:00 Report Case: [id number] Authorizing Provider: Charlene Delgado MD Collected: 12/15/20182018 Ordering Location: [facility] PERIOPERATIVE Received: 12/20/2018 0953 SERVICES Pathologist: David Felix MD Specimen: Small Bowel, NOS, Small Bowel A. SMALL BOWEL, RESECTIONSMALL BOWEL WITH SEROSAL ADHESIONS, CONGESTION, ACUTE INFLAMMATION AND SEROSITIS.NEGATIVE FOR GRANULOMAS, DYSPLASIA, OR INVASIVE CARCINOMA.MARGINS VIABLE Signing Pathologist Direct Phone Line: [phone] icay signed by David Felix MD on 12/22/2018 at 3:10 [id number] laparotomy, lysis of adhesions, small bowel resection [...] Test Item Value Reference Range Interpretation Comme [facility] POC-GLUCOSE METER (BEAKER) (test 96 mg/dL 70-110 TESTED AT [facility] [address] [facility] code = 1538) [facility] 7703 0 CBC W/PLT COUNT & AUTO [id number] 07:27:00 Test Item Value Reference Range Interpretation [...] = 3438) Received comment: User comments: Slide comments:[id number] 05:23:00 Test Item Value Reference Range Interpretation Comments MAGNESIUM (BEAKER) (test code = 1.7 mg/dL 1.6-2.6 627) BASIC METABOLIC [id number] 05:23:00 Test Item Value Reference Range Interpretation [...] NOT APPLICABLE FOR DIALYSIS PATIEN TS. POCT-GLUCOSE [id number] 21:16:00 Test Item Value Reference Range Interpretation Comments POC-GLUCOSE METER 107 mg/dL 70-110 TESTED AT [place] [address] ([facility]) (test code = TULIO [place] 1538) [address] POCT-GLUCOSE [id number] 18:22:00 Test Item Value Reference Range Interpretation Comments POC-GLUCOSE METER 111 mg/dL 70-110 H TESTED AT [place] [address] ([facility]) (test code = TULIO Land[place] 1538) [address] POCT-GLUCOSE [id number] 14:04:00 Test Item Value Reference Range Interpretation Comments POC-GLUCOSE METER 132 mg/dL 70-110 H TESTED AT [place] [address] ([facility]) (test code = TULIO [place] 1538) [address] POCT-GLUCOSE [id number] 08:04:00 Test Item Value Reference Range Interpretation Comments POC-GLUCOSE METER 142 mg/dL 70-110 H TESTED AT [place] [address] ([facility]) (test code = TULIO [place] 1538) [address] CBC W/PLT COUNT & AUTO [id number] 05:08:00 Test Item Value Reference Range Interpretation [...] 0-1 PERCENT (BEAKER) (test code = 2801) [id number] 04:50:00 Test Item Value Reference Range Interpretation Comments MAGNESIUM (BEAKER) (test code = 1.7 mg/dL 1.6-2.6 627) BASIC METABOLIC [id number] 04:50:00 Test Item Value Reference Range Interpretation [...] NOT APPLICABLE FOR DIALYSIS PATIEN TS. POCT-GLUCOSE [id number] 21:51:00 Test Item Value Reference Range Interpretation Comments POC-GLUCOSE METER 112 mg/dL 70-110 H TESTED AT [place] [address] ([facility]) (test code = [place] 1538) [address] POCT-GLUCOSE [id number] 17:20:00 Test Item Value Reference Range Interpretation Comments POC-GLUCOSE METER 131 mg/dL 70-110 H TESTED AT [facility] 67[address] ([facility]) (test code = [place] 1538) [address] POCT-GLUCOSE [id number] 12:30:00 Test Item Value Reference Range Interpretation Comments POC-GLUCOSE METER 122 mg/dL 70-110 H TESTED AT [facility] 67[address] ([facility]) (test code = [place] 1538) [address] CBC W/PLT COUNT & AUTO [id number] 09:45:00 Test Item Value Reference Range Interpretation [...] 3438) Received comment: User comments: Slide comments:POCT-GLUCOSE [id number] 08:19:00 Test Item Value Reference Range Interpretation Comments POC-GLUCOSE METER 126 mg/dL 70-110 H TESTED AT [facility] 67[address] (BEAKER) (test code = [place] 1538) [address] [id number] 05:41:00 Test Item Value Reference Range Interpretation Comments MAGNESIUM (BEAKER) (test code = 1.8 mg/dL 1.6-2.6 627) BASIC METABOLIC [id number] 05:41:00 Test Item Value Reference Range Interpretation [...] NOT APPLICABLE FOR DIALYSIS PATIEN TS. POCT-GLUCOSE [id number] 23:59:00 Test Item Value Reference Range Interpretation Comments POC-GLUCOSE METER 114 mg/dL 70-110 H TESTED AT [facility] 67 (BEAKER) (test code = [place] 1538) [address] POCT-GLUCOSE [id number] 18:01:00 Test Item Value Reference Range Interpretation Comments POC-GLUCOSE METER 118 mg/dL 70-110 H TESTED AT [place] [address] (BEAKER) (test code = [place] 1538) [address] POCT-GLUCOSE [id number] 12:49:00 Test Item Value Reference Range Interpretation Comments POC-GLUCOSE METER 141 mg/dL 70-110 H TESTED AT [place] [address] (BEAKER) (test code = [place] 1538) [address] URINALYSIS W/ REFLEX URINE [id number] 08:56:00 Test Item Value Reference Range Interpretation [...] = 2795) RAD, CHEST, 1 VIEW, NON [id number] 07:48:00Reason for exam:- >leukocytosisShould this be performed [...] MDReport Verified Date/Time: 12/19/2018 07:48:39 Reading Location: [address] Consult Reading Room CBC W/PLT COUNT & AUTO [id number] 05:27:00 Test Item Value Reference Range Interpretation [...] H PERCENT (BEAKER) (test code = 2801) [id number] 05:25:00 Test Item Value Reference Range Interpretation Comments PREALBUMIN (BEAKER) (test code = 586) 8 mg/dL 14-45 L [id number] 05:23:00 Test Item Value Reference Range Interpretation Comments MAGNESIUM (BEAKER) (test code = 1.9 mg/dL 1.6-2.6 627) BASIC METABOLIC [id number] 05:23:00 Test Item Value Reference Range Interpretation [...] NOT APPLICABLE FOR DIALYSIS PATIEN TS. POCT-GLUCOSE [id number] 23:55:00 Test Item Value Reference Range Interpretation Comments POC-GLUCOSE METER 135 mg/dL 70-110 H TESTED AT [facility] 67 ([facility]) (test code = TULIO Landis [facility] 1538) [address] POCT-GLUCOSE [id number] 19:04:00 Test Item Value Reference Range Interpretation Comments POC-GLUCOSE METER 142 mg/dL 70-110 H TESTED AT [place] [address] ([facility]) (test code = TULIO Landis [facility] 1538) [address] RAD, ABDOMEN/KUB, 1 VIEW [id number] 09:42:00Reason for exam:->bowel obstruction r/oFINAL REPORT CLINICAL [...] MDReport Verified Date/Time: 12/18/2018 09:42:46 Reading Location: [address] Neuro Reading Room POCT- GLUCOSE [id number] 07:27:00 Test Item Value Reference Range Interpretation Comments POC-GLUCOSE METER 158 mg/dL 70-110 H TESTED AT [facility] 6720 (BEAKER) (test code = TULIO Landis [facility] 1538) [address] POCT-GLUCOSE [id number] 05:43:00 Test Item Value Reference Range Interpretation Comments POC-GLUCOSE METER 142 mg/dL 70-110 H TESTED AT [facility] 67[address] (BEAKER) (test code = TULIO Landis [facility] 1538) [address] BASIC METABOLIC [id number] 04:41:00 Test Item Value Reference Range Interpretation [...] S NOT APPLICABLE FOR DIALYSIS PATIEN TS. [id number] 04:19:00 Test Item Value Reference Range Interpretation Comments MAGNESIUM (BEAKER) (test code = 1.9 mg/dL 1.6-2.6 627) CBC W/PLT COUNT & AUTO [id number] 03:25:00 Test Item Value Reference Range Interpretation [...] PERCENT (BEAKER) (test code = 2801) POCT-GLUCOSE [id number] 23:23:00 Test Item Value Reference Range Interpretation Comments POC-GLUCOSE METER 145 mg/dL 70-110 H TESTED AT [facility] 67[address] (BEAKER) (test code = TULIO Landis [facility] 1538) [address] POCT-GLUCOSE [id number] 18:28:00 Test Item Value Reference Range Interpretation Comments POC-GLUCOSE METER 129 mg/dL 70-110 H TESTED AT [facility] 6720 (BEAKER) (test code = TULIO Landis [facility] 1538) [address] POCT-GLUCOSE [id number] 12:58:00 Test Item Value Reference Range Interpretation Comments POC-GLUCOSE METER 159 mg/dL 70-110 H TESTED AT [place] [address] (BEAKER) (test code = TULIO Landis [facility] 1538) [address] [id number] 05:56:00 Test Item Value Reference Range Interpretation Comments MAGNESIUM (BEAKER) 2.0 mg/dL 1.6-2.6 Specimen slightly (test code = 627) hemolyzed BASIC METABOLIC [id number] 05:56:00 Test Item Value Reference Range Interpretation [...] PATIEN TS. CBC W/PLT COUNT & AUTO [id number] 04:38:00 Test Item Value Reference Range Interpretation [...] PERCENT (BEAKER) (test code = 2801) POCT-GLUCOSE [id number] 02:18:00 Test Item Value Reference Range Interpretation Comments POC-GLUCOSE METER 147 mg/dL 70-110 H TESTED AT [facility] 67 (BEAKER) (test code = TULIO Landis [facility] 1538) [address] POCT-GLUCOSE [id number] 19:10:00 Test Item Value Reference Range Interpretation Comments POC-GLUCOSE METER 179 mg/dL 70-110 H TESTED AT [place] [address] (BEAKER) (test code = TULIO Landis [facility] 1538) [address] POCT-GLUCOSE [id number] 12:29:00 Test Item Value Reference Range Interpretation Comments POC-GLUCOSE METER 161 mg/dL 70-110 H TESTED AT [place] [address] (BEAKER) (test code = TULIO Landis [facility] 1538) [address] POCT-GLUCOSE [id number] 05:45:00 Test Item Value Reference Range Interpretation Comments POC-GLUCOSE METER 140 mg/dL 70-110 H TESTED AT [place] [address] (BEAKER) (test code = TULIO Landis [facility] 1538) [address] (CELLAVISION MANUAL DIFF)2018-12-16 03:43:00 Test Item Value [...] PLATELET CONCENTRATION Adequate (CELLAVISION)(BEAKER) (test code = 7088) Received comment: User comments: Slide comments:CBC W/PLT COUNT & AUTO [id number] 03:26:00 Test Item Value Reference Range Interpretation [...] WBC 0-0 (BEAKER) (test code = 413) [id number] 03:23:00 Test Item Value Reference Range Interpretation Comments MAGNESIUM (BEAKER) 2.1 mg/dL 1.6-2.6 Specimen slightly (test code = 627) hemolyzed BASIC METABOLIC [id number] 03:23:00 Test Item Value Reference Range Interpretation [...] hemolyzed GLUCOSE RANDOM 117 mg/dL 70-105 H (BAYLEE) (test code = 652) CALCIUM (JESUAKER) 8.4 mg/dL 8.4-10.2 (test code = 697) EGFR (BAYLEE) (test 36 mL/min/1.73 ESTIMA JUAN GFR IS code = 1092) sq m NOT ACCURATE CREATININE CLEARANCE IN PREDICTING GLOMERULAR FILTRATION RATE . ESTIMATED GFR I S NOT APPLICABLE FOR DIALYSIS PATIEN TS. POCT-GLUCOSE [id number] 22:54:00 Test Item Value Reference Range Interpretation Comments POC-GLUCOSE METER 106 mg/dL 70-110 TESTED AT [place] [address] ([facility]) (test code = [facility] 1538) [address] POCT-GLUCOSE [id number] 12:21:00 Test Item Value Reference Range Interpretation Comments POC-GLUCOSE METER 85 mg/dL 70-110 TESTED AT [place] [address] ([facility]) (test code = [facility] [address] 1538) CT, [id number] 10:13:00With oral contrastAddendum BeginsREPORT STATUS:A One area of questionable small bowel wall thickening is nonspecific but could be due to nondistention. Signed: Guillaume Kirk MDReport Verified Date/Time: 12/15/2018 10:13:27 Reading Location: [facility] Diagnostic Imaging Reading Room [address] EndsFINAL REPORT TECHNIQUE: CT of the abdomen [...] stone measures 0.2 cm. Signed: Guillaume Kirk MDReport Verified Date/Time: 12/15/2018 08:01:53 Reading Location: [facility] Diagnostic Imaging Reading Room - [place] [address] RAD, ABDOMEN/KUB, 1 VIEW [id number] 09:38:00Reason for exam:- >Assess progression of contrast [...] Robert MDReport Verified Date/Time: 12/15/201809:38:11 Reading Location: [facility] Radiology Reading Room BASIC METABOLIC [id number] 06:58:00 Test Item Value Reference Range Interpretation [...] S NOT APPLICABLE FOR DIALYSIS PATIEN TS. [id number] 06:58:00 Test Item Value Reference Range Interpretation Comments MAGNESIUM (BEAKER) (test code = 2.1 mg/dL 1.6-2.6 627) POCT-GLUCOSE [id number] 06:25:00 Test Item Value Reference Range Interpretation Comments POC-GLUCOSE METER 97 mg/dL 70-110 TESTED AT [facility] 67[address] (BEAKER) (test code = [place] [address] 1538) [id number] 05:34:00 Test Item Value Reference Range Interpretation [...] = 2590) CBC W/PLT COUNT & AUTO [id number] 04:50:00 Test Item Value Reference Range Interpretation [...] PERCENT (BEAKER) (test code = 2801) POCT-GLUCOSE [id number] 18:23:00 Test Item Value Reference Range Interpretation Comments POC-GLUCOSE METER 127 mg/dL 70-110 H TESTED AT [facility] 67[address] (BEAKER) (test code = [place] 1538) [address] CBC W/PLT COUNT & AUTO [id number] 13:34:00 Test Item Value Reference Range Interpretation [...] (test code = 1+ few 480) POCT-GLUCOSE [id number] 13:08:00 Test Item Value Reference Range Interpretation Comments POC-GLUCOSE METER 135 mg/dL 70-110 H TESTED AT [facility] 6720 (BEAKER) (test code = [place] 1538) [address] [id number] 06:13:00 Test Item Value Reference Range Interpretation Comments MAGNESIUM (BEAKER) (test code = 2.5 mg/dL 1.6-2.6 627) BASIC METABOLIC [id number] 06:13:00 Test Item Value Reference Range Interpretation [...] NOT APPLICABLE FOR DIALYSIS PATIEN TS. POCT-GLUCOSE [id number] 23:25:00 Test Item Value Reference Range Interpretation Comments POC-GLUCOSE METER 126 mg/dL 70-110 H TESTED AT [facility] 6720 (BEAKER) (test code = [place] 1538) [address] [id number] 16:50:00 Test Item Value Reference Range Interpretation Comments MAGNESIUM (BEAKER) (test code = 2.1 mg/dL 1.6-2.6 627) BASIC METABOLIC [id number] 16:50:00 Test Item Value Reference Range Interpretation [...] NOT APPLICABLE FOR DIALYSIS PATIEN TS. POCT-GLUCOSE [id number] 12:31:00 Test Item Value Reference Range Interpretation Comments POC-GLUCOSE METER 191 mg/dL 70-110 H TESTED AT [facility] 67[address] (BEAKER) (test code = [place] 1538) [address] BASIC METABOLIC [id number] 09:27:00 Test Item Value Reference Range Interpretation [...] DIALYSIS PATIEN TS. RAD, ABDOMEN/KUB, 1 VIEW [id number] 08:56:00Reason for exam:->Nasogastric tube placementShould this be [...] post placement of NG tube. Signed: Huseyin Metcalf Verified Date/Time: 12/13/2018 08:56:12 Reading Location:[facility] Radiology Reading Room RAD, ABDOMEN/KUB, 1 VIEW [id number] 08:26:00Reason for exam:->stomach distentionFINAL REPORT RAD, ABDOMEN/KUB, [...] Ileus cannot be excluded. Signed: Huseyin Metcalf Verified Date/Time: 12/13/2018 08:26:26 Reading Location: [facility] Radiology Reading Room POCT-GLUCOSE METER 2018-12-13 08:09:00 Test Item Value Reference Range Interpretation Comments POC-GLUCOSE METER 167 mg/dL 70-110 H TESTED AT [place] [address] ([facility]) (test code = [place] 1538) [address] COMPREHENSIVE METABOLIC [id number] 07:34:00 Test Item Value Reference Range Interpretation [...] MEAN CORPUSCULAR HEMOGLOBIN 18.7 pg 25.7-32.2 L ([facility]) (test code = 751) MEAN CORPUSCULAR HEMOGLOBIN CONC 30.2 GM/DL 32.3-36.5 L ([facility]) (test code = 752) RED CELL DISTRIBUTION WIDTH 17.1 % 11.6-14.4 H ([facility]) (test code = 412) PLATELET COUNT ([facility]) (test 184 K/CU MM 150-450 code = 756) NUCLEATED RED BLOOD CELLS 0 /100 WBC 0-0 ([facility]) (test code = 413) POCT-GLUCOSE [id number] 22:28:00 Test Item Value Reference Range Interpretation Comments POC-GLUCOSE METER 122 mg/dL 70-110 H TESTED AT [place] [address] ([facility]) (test code = TULIO Landis [facility] 1538) [id number] POCT-GLUCOSE [id number] 18:06:00 Test Item Value Reference Range Interpretation Comments POC-GLUCOSE METER 146 mg/dL 70-110 H TESTED AT [place] [address] ([facility]) (test code = TULIO Landis [facility] 1538) [id number] 17:43:00 Test Item Value Reference Range Interpretation Comments ACTIVATED CLOTTING TIME 120 sec TEST ED AT [place] [address] ([facility]) (test code = TULIO Landis [facility] 441) [id number] TROPONIN [id number] 13:42:00 Test Item Value Reference Range Interpretation Comments TROPONIN I ([facility]) (test code = 0.02 ng/mL 0.00-0.03 397) [...] failure, acidosis, acute neurological disease, and persistent tachyarrhythmia.[id number] 11:41:00 Test Item Value Reference Range Interpretation Comments PARTIAL THROMBOPLASTIN TIME 66.8 seconds 22.5-36.0 H ([facility]) (test code = 760) RAD, ABDOMEN/KUB, 1 VIEW [id number] 10:05:00Reason for exam:->small bowel obstructionShould this be [...] MDReport Verified Date/Time: 12/12/2018 10:05:00 Reading Location: [facility] Radiology Reading Room COMPREHENSIVE METABOLIC [id number] 08:18:00 Test Item Value Reference Range Interpretation [...] NOT APPLICABLE FOR DIALYSIS PATIEN TS. TROPONIN [id number] 07:33:00 Test Item Value Reference Range Interpretation [...] acute neurological disease, and persistent tachyarrhythmia.BASIC METABOLIC [id number] 07:26:00 Test Item Value Reference Range Interpretation [...] WBC 0-0 (BEAKER) (test code = 413) [id number] 06:07:00 Test Item Value Reference Range Interpretation Comments PARTIAL THROMBOPLASTIN TIME 82.8 seconds 22.5-36.0 H (BEAKER) (test code = 760) TROPONIN [id number] 22:44:00 Test Item Value Reference Range Interpretation [...] 0-100 (test code = 700) COMPREHENSIVE METABOLIC [id number] 22:37:00 Test Item Value Reference Range Interpretation [...] S NOT APPLICABLE FOR DIALYSIS PATIEN TS. [id number] 22:28:00 Test Item Value Reference Range Interpretation Comments PARTIAL THROMBOPLASTIN TIME 26.5 seconds 22.5-36.0 (BEAKER) (test code = 760) Prior to initiating heparinCBC W/PLT COUNT & AUTO [id number] 22:22:00 Test Item Value Reference Range Interpretation [...] 0-1 GRANULOCYTES-RELATIVE PERCENT (BEAKER) (test code = 2801)
[2021-09-29] MEDS ORDERED: IBUPROFEN 200 MG TAB PO ONE (08:52)
[2021-09-29] MEDS ORDERED: HYDROCODONE/APAP 5/325 MG TAB ONE (08:52)
[2021-09-29] MEDS ORDERED: dexAMETHasone 10 MG/ML VIAL ONE (08:52)
--- NOTE | 2021-09-29 09:08 | RAD REPORT ---
EXAM DESCRIPTION: RAD - Wrist Right 3 View - 09/29/2021 9:01 am CLINICAL HISTORY: Right wrist pain FINDINGS: Volar intercalated scaphoid instability is present. No acute fracture or dislocation is seen. Narrowing of the radius scaphoid joint with subchondral sclerosis. Erosions involve distal ulna with osteophytes.
--- NOTE | 2021-09-29 10:10 | ER ---
Nurse's Notes [facility] Name: Sukhwinder Bassett Age: 80 yrs Sex: Male : 1940 Arrival Date: 09/29/2021 Time: 08:10 Bed 20 Private MD: Preethi Marvin H Diagnosis: Volar intercalated segment instability - right wrist Presentation: 09/29 08:19 Chief complaint: Patient states: slept on Right wrist four nights ago and noticed an vg1 increase in swelling over the past four days. Coronavirus screen: Vaccine status: Patient reports receiving the 2nd dose of the covid vaccine. Ebola Screen: Patient denies exposure to infectious person. Patient denies travel to an Ebola-affected area in the 21 days before illness onset. Initial Sepsis Screen: Does the patient meet any 2 criteria? No. Patient's initial sepsis screen is negative. Does the patient have a suspected source of infection? No. Patient's initial sepsis screen is negative. Risk Assessment: Do you want to hurt yourself or someone else? Patient reports no desire to harm self or others. Onset of symptoms was September 26, 2021. 08:19 Method Of Arrival: Ambulatory vg1 08:19 Acuity: DIO 4 vg1 Triage Assessment: 08:21 General: Appears uncomfortable, Behavior is calm, cooperative. Pain: Complains of pain vg1 in Right wrist Pain currently is 10 out of 10 on a pain scale. Pain began 2-3 days ago. Musculoskeletal: Range of motion: limited in right wrist. Historical: - Allergies: 08:21 No Known Allergies; vg1 - Home Meds: 08:21 Iron CR Oral [Active]; Aspirin Oral [Active]; BP med [Active]; vg1 - PMHx: 08:21 High Cholesterol; Hypertension; Arthritis; vg1 - Immunization history:: Client reports receiving the 2nd dose of the Covid vaccine. - Social history:: Smoking status: Patient denies any tobacco usage or history of. Screenin:40 Abuse screen: Denies threats or abuse. Nutritional screening: No deficits noted. ap3 Tuberculosis screening: No symptoms or risk factors identified. Fall Risk None identified. Assessment: 08:48 Reassessment: Patient and/or family updated on plan of care and expected duration. Pain ap3 level reassessed. Patient is alert, oriented x 3, equal unlabored respirations, skin warm/dry/pink. General: Appears in no apparent distress. comfortable, Behavior is calm, cooperative, appropriate for age. Pain: Complains of pain in right wrist. Neuro: Level of Consciousness is awake, alert, obeys commands, Oriented to person, place, time, situation, Gait is steady, Speech is normal. Cardiovascular: Patient's skin is warm and dry. Respiratory: Airway is patent is compromised Respiratory effort is even, unlabored. Vital Signs: 08:19 BP 129 / 89; Pulse 89; Resp 16; Temp 98.8(O); Pulse Ox 100% on R/A; Weight 86.18 kg; vg1 Height 6 ft. 0 in. (182.88 cm); Pain 1010; 08:19 Body Mass Index 25.77 (86.18 kg, 182.88 cm) vg1 ED Course: 08:10 Patient arrived in ED. mr 08:10 Preethi Marvin DO is Private Physician. mr 08:21 Triage completed. vg1 08:21 Arm band placed on. vg1 08:26 Iftikhar Day NP is PHCP. pm1 08:26 Lauri Brothers MD is Attending Physician. pm1 08:39 Flora Osullivan RN is Primary Nurse. ap3 08:41 Patient has correct armband on for positive identification. Bed in low position. Call ap3 light in reach. Side rails up X 1. Pulse ox on. NIBP on. Door closed. Noise minimized. 09:03 Wrist Right 3 View XRAY In Process Unspecified. EDMS 10:05 Guillaume Mack MD is Referral Physician. pm1 10:45 No provider procedures requiring assistance completed. Patient did not have IV access ap3 during this emergency room visit. Administered Medications: 08:57 Drug: HYDROcodone-acetaminophen 5 mg-325 mg 1 tabs Route: PO; ap3 10:07 Follow up: Response: No adverse reaction ap3 08:57 Drug: Decadron (dexamethasone) 10 mg Route: IM; Site: right deltoid; ap3 10:07 Follow up: Response: No adverse reaction ap3 08:57 Drug: Ibuprofen 600 mg Route: PO; ap3 10:07 Follow up: Response: No adverse reaction ap3 Medication: 08:41 VIS not applicable for this client. ap3 Outcome: 10:09 Discharge ordered by . pm1 10:45 Discharged to home ambulatory, with family. ap3 10:45 Condition: good 10:45 Discharge instructions given to patient, family, Instructed on discharge instructions, follow up and referral plans. medication usage, Demonstrated understanding of instructions, follow-up care, medications, Prescriptions given X 1. 10:48 Patient left the ED. ap3 Signatures: Dispatcher [employer] LINDYIN Sandy MaIftikhar, STONE POLISHER STONE POLISHER pm1 Flora Osullivan, RN RN ap3 Delicia Keys RN RN vg1 Corrections: (The following items were deleted from the chart) 08:24 08:19 Chief complaint: Patient states: slept on Left wrist four nights ago and noticed vg1 an increase in swelling over the past four days vg1 08:24 08:21 Pain: Complains of pain in Left wrist Pain currently is 10 out of 10 on a pain vg1 scale. Pain began 2-3 days ago. vg1 08:24 08:21 Musculoskeletal: Range of motion: limited in left wrist vg1 vg1
--- NOTE | 2021-09-29 10:10 | EDPHYS ---
Physician Documentation [facility] Name: Sukhwinder Bassett Age: 80 yrs Sex: Male : 1940 Arrival Date: 09/29/2021 Time: 08:10 Bed 20 Private MD: Preethi Marvin H ED Physician Lauri Brothers HPI: 09/29 08:50 This 80 yrs old Black Male presents to ER via Ambulatory with complaints of Wrist pm1 Swelling. 08:50 The patient or guardian reports swelling. The complaints affect the right wrist pm1 diffusely. Context: The problem was sustained at home, resulted from Sleeping on his right wrist 4 days ago and woke up with pain to right wrist. Reports that his right wrist was hyperextended while he slept on it. Onset: The symptoms/episode began/occurred 4 day(s) ago. Modifying factors: The symptoms are alleviated by nothing, has been trying Tylenol without any improvement, the symptoms are aggravated by movement. Associated signs and symptoms: Pertinent negatives: cyanosis distally, decreased sensation distally, fever, numbness distally, tingling distally. The patient has not recently seen a physician. Historical: - Allergies: 08:21 No Known Allergies; vg1 - Home Meds: 08:21 Iron CR Oral [Active]; Aspirin Oral [Active]; BP med [Active]; vg1 - PMHx: 08:21 High Cholesterol; Hypertension; Arthritis; vg1 - Immunization history:: Client reports receiving the 2nd dose of the Covid vaccine. - Social history:: Smoking status: Patient denies any tobacco usage or history of. ROS: 08:50 Constitutional: Negative for fever, chills, and weight loss, Cardiovascular: Negative pm1 for chest pain, palpitations, and edema, Respiratory: Negative for shortness of breath, cough, wheezing, and pleuritic chest pain. 08:50 Skin: Negative for injury, rash, and discoloration, Neuro: Negative for headache, weakness, numbness, tingling, and seizure. 08:50 MS/extremity: Positive for swelling, tenderness, of the right wrist, Negative for decreased range of motion, deformity. 08:50 All other systems are negative. Exam: 08:50 Hand exam: Exam is positive for Mild swelling to right wrist and hand. No swelling, pm1 decreased ROM or pain to fingers. Tenderness to ulnar aspect of right wrist and 3rd right knuckle. . 08:50 Skin: Exam negative for acute changes, cellulitis, is not appreciated. 08:50 Constitutional: This is a well developed, well nourished patient who is awake, alert, and in no acute distress. Head/Face: Normocephalic, atraumatic. 08:50 Cardiovascular: Exam negative for acute changes, Rate: normal, Rhythm: regular, Pulses: no pulse deficits are appreciated, Pulses are 2+ in right radial artery. 08:50 Neuro: Exam negative for acute changes, Orientation: is normal, Mentation: is normal, Motor: is normal, moves all fours, Gait: is steady, at a normal pace, without difficulty. Vital Signs: 08:19 BP 129 / 89; Pulse 89; Resp 16; Temp 98.8(O); Pulse Ox 100% on R/A; Weight 86.18 kg; vg1 Height 6 ft. 0 in. (182.88 cm); Pain 10/10; 08:19 Body Mass Index 25.77 (86.18 kg, 182.88 cm) vg1 MDM: 08:32 Patient medically screened. pm1 10:04 Data reviewed: vital signs. Data interpreted: Pulse oximetry: on room air is 100 %. pm1 Interpretation: normal. Counseling: I had a detailed discussion with the patient and/or guardian regarding: the historical points, exam findings, and any diagnostic results supporting the discharge/admit diagnosis, radiology results, the need for outpatient follow up, a hand specialist, to return to the emergency department if symptoms worsen or persist or if there are any questions or concerns that arise at home. 09/29 08:25 Order name: Wrist Right 3 View XRAY; Complete Time: 09:35 vg1 09/29 08:50 Order name: Ice pack; Complete Time: 08:50 pm1 09/29 10:04 Order name: Wrist Splint; Complete Time: 10:33 pm1 Administered Medications: 08:57 Drug: HYDROcodone-acetaminophen 5 mg-325 mg 1 tabs Route: PO; ap3 10:07 Follow up: Response: No adverse reaction ap3 08:57 Drug: Decadron (dexamethasone) 10 mg Route: IM; Site: right deltoid; ap3 10:07 Follow up: Response: No adverse reaction ap3 08:57 Drug: Ibuprofen 600 mg Route: PO; ap3 10:07 Follow up: Response: No adverse reaction ap3 Disposition: 19:04 Co-signature as Attending Physician, Lauri Brothers MD. rn Disposition Summary: 09/29/21 10:09 Discharge Ordered Location: Home pm1 Problem: new pm1 Symptoms: have improved pm1 Condition: Stable pm1 Diagnosis - Volar intercalated segment instability - right wrist pm1 Followup: pm1 - With: Guillaume Mack MD - When: 2 - 3 days - Reason: Recheck today's complaints, Continuance of care, Re-evaluation by your physician Discharge Instructions: - Discharge Summary Sheet pm1 - Wrist Splint, Adult pm1 - Wrist Sprain, Adult pm1 Forms: - Medication Reconciliation Form pm1 - Thank You Letter pm1 - Antibiotic Education pm1 - Prescription Opioid Use pm1 Prescriptions: - Tylenol-Codeine #3 300 mg-30 mg Oral - take 2 tablet by ORAL route every 6 hours As needed; 20 tablet; Refills: 0, pm1 Product Selection Permitted Signatures: Dispatcher [employer] Lauri Waller MD MD rn Marinas, Patrick, FORKLIFT WHEEL LOADER FORKLIFT WHEEL LOADER pm1 Flora Osullivan RN RN ap3 Delicia Keys RN RN vg1
[2021-09-29 11:16] VITALS: BP 129/89; TEMP 98.8; O2SAT 100
== END 2021-09-29 10:48 | disposition home or self-care (01) ==
LOC: ER 08:07
DX: M25.331 Other instability, right wrist (principal)
CPT/HCPCS: 73110; 96372; 99284; J1100

== ENCOUNTER 2021-11-16 12:21 | Emergency (ER) | payer OTHER ==
--- NOTE | 2021-11-16 12:57 | RAD REPORT ---
EXAM DESCRIPTION: RAD - Knee Right 3 View - 11/16/2021 12:51 pm CLINICAL HISTORY: PAIN COMPARISON: Chest Angio dated 11/03/2021; Thorax W/ Con dated 08/22/2021; Thorax Wo Con dated 06/03/2021 ; Chest For Pe Angio dated 04/29/2021No comparisons FINDINGS/IMPRESSION: No acute fracture. No malalignment. Mild patellofemoral compartment degenerativ e changes. Spurring in the lateral compartment. Mild medial compartment narrowing. Mild patellofemora l compartment spurring. Small knee effusion which is nonspecific.
[2021-11-16] MEDS ORDERED: KETOROLAC 30 MG/ML INJ ONE (13:25)
[2021-11-16] MEDS ORDERED: CLINDAMYCIN 600MG/D5W 600 MG/50 ML BAG IV ONE (13:26)
[2021-11-16 15:14] LABS: Potassium 4.2 mmol/L (3.5-5.1)
[2021-11-16 15:20] LABS: Absolute Lymphocytes (CBC) 1.2 K/uL (0.7-4.9); Hematocrit 33.5 % (39.6-49.0); Lymphocytes % 13.5 % (15.3-44.8); MCV 58.6 fL (80-100); RBC Red Blood Cell Count 5.72 M/uL (4.33-5.43)
[2021-11-16 15:48] LABS: Blood Morphology Comment NOTED (NOT SEEN); Platelet Estimate ADEQ; White Blood Cell Scan OK (OK)
[2021-11-16 15:49] LABS: Hypochromasia 2+
--- NOTE | 2021-11-16 15:59 | ER ---
Nurse's Notes [facility] Name: Sukhwinder Bassett Age: 80 yrs Sex: Male : 1940 Arrival Date: 11/16/2021 Time: 12:25 Bed 16 Private MD: Diagnosis: Pain in right knee;Cellulitis of right lower limb Presentation: 11/16 12:25 Chief complaint: EMS states: "pt called us today reporting right knee pain. the pt jd3 reports he has undiagnosed arthritis and was up on his feet for a long time yesterday at a family gathering. he reports that he can can't hardly put any weight on the right leg as a results of the pain. he was trying to manage the pain at home with the use of Tylenol, but he reported the Tylenol was not helping. no injury reported.". Coronavirus screen: At this time, the client does not indicate any symptoms associated with coronavirus-19. Ebola Screen: No symptoms or risks identified at this time. Initial Sepsis Screen: Does the patient meet any 2 criteria? No. Patient's initial sepsis screen is negative. Does the patient have a suspected source of infection? No. Patient's initial sepsis screen is negative. Risk Assessment: Do you want to hurt yourself or someone else? Patient reports no desire to harm self or others. Onset of symptoms was November 16, 2021. 12:25 Method Of Arrival: EMS: [facility] jd3 12:25 Acuity: DIO 3 jd3 Historical: - Allergies: 12:27 No Known Allergies; jd3 - Home Meds: 12:27 BP med [Active]; Iron CR Oral [Active]; Aspirin Oral [Active]; jd3 - PMHx: 12:27 Arthritis; High Cholesterol; Hypertension; jd3 - Immunization history:: Adult Immunizations up to date, Client reports receiving the 2nd dose of the Covid vaccine. - Social history:: Smoking status: Patient denies any tobacco usage or history of. Screenin:29 Abuse screen: Denies threats or abuse. Nutritional screening: No deficits noted. jd3 Tuberculosis screening: No symptoms or risk factors identified. Fall Risk Ambulatory Aid- Crutches/Cane/Walker (15 pts). Gait- Weak (10 pts.). Mental Status- Oriented to own ability (0 pts). Total Meng Fall Scale indicates Low Risk Score (25-44 pts). Fall prevention measures have been instituted. Side Rails Up X 2 Placed close to Nursing Station Frequent Obs/Assesments occuring. Assessment: 12:28 General: Appears in no apparent distress. comfortable, Behavior is calm, cooperative, jd3 appropriate for age. Pain: Complains of pain in right knee Quality of pain is described as sharp, tender. Neuro: Dugan Agitation-Sedation Scale (RASS): 0 - Alert and Calm Level of Consciousness is awake, alert, obeys commands, Oriented to person, place, time, situation. Cardiovascular: Capillary refill < 3 seconds Patient's skin is warm and dry. Respiratory: Airway is patent Respiratory effort is even, unlabored, Respiratory pattern is regular, symmetrical. GI: No signs and/or symptoms were reported involving the gastrointestinal system. : No signs and/or symptoms were reported regarding the genitourinary system. EENT: No signs and/or symptoms were reported regarding the EENT system. Derm: Skin is intact, Skin is dry, Skin is normal, Skin temperature is warm. Musculoskeletal: Range of motion: limited in right knee. 13:46 Reassessment: Patient appears in no apparent distress at this time. No changes from jd3 previously documented assessment. Patient and/or family updated on plan of care and expected duration. Pain level reassessed. Patient is alert, oriented x 3, equal unlabored respirations, skin warm/dry/pink. 14:49 Reassessment: Patient appears in no apparent distress at this time. Patient and/or jd3 family updated on plan of care and expected duration. Pain level reassessed. Patient is alert, oriented x 3, equal unlabored respirations, skin warm/dry/pink. Patient states feeling better. 16:40 Reassessment: Patient appears in no apparent distress at this time. Patient and/or jd3 family updated on plan of care and expected duration. Pain level reassessed. Patient is alert, oriented x 3, equal unlabored respirations, skin warm/dry/pink. Patient states feeling better. Vital Signs: 12:28 BP 145 / 79; Pulse 68; Resp 17; Temp 99.3(TE); Pulse Ox 98% on R/A; Weight 79.38 kg jd3 (R); Height 6 ft. 0 in. (182.88 cm) (R); Pain 10/10; 13:46 BP 155 / 89; Pulse 64; Resp 16; Pulse Ox 98% on R/A; jd3 16:41 BP 146 / 85; Pulse 61; Resp 16; Pulse Ox 98% on R/A; jd3 12:28 Body Mass Index 23.73 (79.38 kg, 182.88 cm) jd3 ED Course: 12:25 Patient arrived in ED. jd3 12:25 Rey Adams RN is Primary Nurse. jd3 12:25 Berna Mace MD is Attending Physician. sd2 12:27 Triage completed. jd3 12:28 Arm band placed on. jd3 12:29 Patient has correct armband on for positive identification. Bed in low position. Call jd3 light in reach. Side rails up X2. Pulse ox on. NIBP on. 12:53 XRAY Knee RIGHT 3 view In Process Unspecified. EDMS 13:25 Inserted saline lock: 22 gauge in right forearm, using aseptic technique. Blood ss collected. 15:57 Nav Gaytan MD is Referral Physician. sd2 16:39 No provider procedures requiring assistance completed. IV discontinued, intact, jd3 bleeding controlled, No redness/swelling at site. Pressure dressing applied. Administered Medications: 13:23 Drug: Ketorolac 15 mg Route: IVP; Site: right forearm; jd3 14:20 Follow up: Response: No adverse reaction jd3 15:04 Drug: Clindamycin 600 mg Route: IVPB; Infused Over: 30 mins; Site: right forearm; jd3 16:00 Follow up: Response: No adverse reaction; IV Status: Completed infusion jd3 Medication: 12:30 VIS not applicable for this client. jd3 Outcome: 15:59 Discharge ordered by . sd2 16:39 Discharged to home via wheelchair, with family. jd3 16:39 Condition: stable 16:39 Discharge instructions given to patient, family, Instructed on discharge instructions, follow up and referral plans. medication usage, Demonstrated understanding of instructions, follow-up care, medications, Prescriptions given X 3. 16:41 Patient left the ED. jd3 Signatures: Dispatcher [facility] Carol Rouse RN RN ss Rey Adams RN RN jBerna Jones MD MD sd2 Corrections: (The following items were deleted from the chart) 13:23 13:23 Ketorolac 15 mg IVP in right antecubital jd3 jd3
--- NOTE | 2021-11-16 15:59 | EDPHYS ---
Physician Documentation [facility] Name: Sukhwinder Bassett Age: 80 yrs Sex: Male : 1940 Arrival Date: 11/16/2021 Time: 12:25 Bed 16 Private MD: ED Physician Berna Mace HPI: 11/16 12:34 This 80 yrs old Black Male presents to ER via EMS with complaints of R knee pain. sd2 12:34 80-year-old male presents via EMS with chief complaint of right knee pain that has been sd2 ongoing for the past 2 weeks. The patient reports he thinks he might have bumped his knee on something and that he might have arthritis in that knee as he began to have arthritis issues approximately 2 years ago. He has been taking Tylenol with some relief until last night when he ran out of Tylenol. He states he has difficulty ambulating on the leg and was on it for a long period of time yesterday due to having family in town visiting. He denies any known fevers but has noticed a red area to the right side of the knee. He is also noticed some associated swelling. He does not currently take any blood thinners. Denies history of gout. . Historical: - Allergies: 12:27 No Known Allergies; jd3 - Home Meds: 12:27 BP med [Active]; Iron CR Oral [Active]; Aspirin Oral [Active]; jd3 - PMHx: 12:27 Arthritis; High Cholesterol; Hypertension; jd3 - Immunization history:: Adult Immunizations up to date, Client reports receiving the 2nd dose of the Covid vaccine. - Social history:: Smoking status: Patient denies any tobacco usage or history of. ROS: 12:34 Constitutional: Negative for fever, chills, and weight loss, Eyes: Negative for injury, sd2 pain, redness, and discharge, Cardiovascular: Negative for chest pain, palpitations, and edema, Respiratory: Negative for shortness of breath, cough, wheezing. Abdomen/GI: Negative for abdominal pain, nausea, vomiting, diarrhea. MS/Extremity: Negative for injury and deformity. Positive for R knee pain and swelling. Skin: Negative for injury. Positive for rash to R knee. Neuro: Negative for headache, numbness and tingling. Exam: 12:34 Constitutional: This is a well developed, well nourished patient who is awake, alert, sd2 and in no acute distress. Head/Face: Normocephalic, atraumatic. Chest/axilla: Normal chest wall appearance and motion. Nontender with no deformity. Cardiovascular: Regular rate and rhythm with a normal S1 and S2. No gallops, murmurs, or rubs. 2+ distal pulses. Respiratory: Lungs have equal breath sounds bilaterally, clear to auscultation and percussion. No rales, rhonchi or wheezes noted. No increased work of breathing, no retractions or nasal flaring. Abdomen/GI: Soft, non-tender, with normal bowel sounds. No guarding or rebound. No evidence of tenderness throughout. Skin: Small red warm area noted to lateral aspect of R knee MS/ Extremity: Pulses equal, no cyanosis. Neurovascular intact. Pt able to flex knee without difficulty. Able to fully extend but with painful ROM. Mild swelling noted about the R knee. Psych: Awake, alert, with orientation to person, place and time. Behavior, mood, and affect are within normal limits. Vital Signs: 12:28 BP 145 / 79; Pulse 68; Resp 17; Temp 99.3(TE); Pulse Ox 98% on R/A; Weight 79.38 kg jd3 (R); Height 6 ft. 0 in. (182.88 cm) (R); Pain 10/10; 13:46 BP 155 / 89; Pulse 64; Resp 16; Pulse Ox 98% on R/A; jd3 16:41 BP 146 / 85; Pulse 61; Resp 16; Pulse Ox 98% on R/A; jd3 12:28 Body Mass Index 23.73 (79.38 kg, 182.88 cm) jd3 MDM: 12:25 Patient medically screened. sd2 12:34 Differential Diagnosis arthritis, fracture, dislocation, septic arthritis, cellulitis sd2 among others. Data reviewed: vital signs, nurses notes. 15:55 Data reviewed: lab test result(s), radiologic studies. Counseling: I had a detailed sd2 discussion with the patient and/or guardian regarding: the historical points, exam findings, and any diagnostic results supporting the discharge/admit diagnosis, lab results, radiology results, the need for outpatient follow up. Medical screen evaluation completed. EMTALA emergency medical condition absent. ED course: Pt feeling much improved after Toradol injection. He is able to ambulate on the leg and has FROM intact. I do not feel this is septic arthritis at this time. No significant leukocytosis. Procal neg. ESR and CRP elevated possibly 2/2 small area of redness and warmth which could be cellulitis on the knee and has improved throughout his stay. Will discharge home with oral antibiotics and close PCP and Ortho follow up. Pt verbalizes understanding of discharge plan and strict return precautions.. 11/16 12:33 Order name: CBC with Diff; Complete Time: 15:53 2 11/16 12:33 Order name: BMP; Complete Time: 15:43 11/16 12:33 Order name: ESR; Complete Time: 15:53 11/16 12:33 Order name: CRP; Complete Time: 15:43 11/16 12:33 Order name: Procalcitonin; Complete Time: 14:26 11/16 12:33 Order name: Blood Culture* 11/16 12:33 Order name: XRAY Knee RIGHT 3 view; Complete Time: 13:09 11/16 13:17 Order name: Labs - recollect needed: recollect chemistry tube/ hemolyzed/; Complete eb Time: 14:30 11/16 15:49 Order name: CBC Smear Scan; Complete Time: 15:53 EDMS Administered Medications: 13:23 Drug: Ketorolac 15 mg Route: IVP; Site: right forearm; jd3 14:20 Follow up: Response: No adverse reaction jd3 15:04 Drug: Clindamycin 600 mg Route: IVPB; Infused Over: 30 mins; Site: right forearm; jd3 16:00 Follow up: Response: No adverse reaction; IV Status: Completed infusion jd3 Disposition Summary: 11/16/21 15:59 Discharge Ordered Location: Home sd2 Problem: new sd2 Symptoms: have improved sd2 Condition: Stable sd2 Diagnosis - Pain in right knee sd2 - Cellulitis of right lower limb sd2 Followup: sd2 - With: Private Physician - When: 2 - 3 days - Reason: Recheck today's complaints, Continuance of care, Re-evaluation by your physician Followup: sd2 - With: Emergency Department - When: As needed - Reason: Followup: sd2 - With: Nav Gaytan MD - When: 2 - 3 days - Reason: Recheck today's complaints, Continuance of care Discharge Instructions: - Discharge Summary Sheet sd2 - Cellulitis, Adult sd2 - Acute Knee Pain, Adult sd2 Forms: - Medication Reconciliation Form sd2 - Thank You Letter sd2 - Antibiotic Education sd2 - Prescription Opioid Use sd2 Prescriptions: - Cephalexin 500 mg Oral Capsule - take 1 capsule by ORAL route every 6 hours for 10 days; 40 capsule; Refills: 0, sd2 Product Selection Permitted - Doxycycline Hyclate 100 mg Oral Tablet - take 1 tablet by ORAL route every 12 hours; 20 tablet; Refills: 0, Product sd2 Selection Permitted - Tramadol 50 mg Oral Tablet - take 1 tablet by ORAL route every 8 hours as needed; 12 tablet; Refills: 0, sd2 Product Selection Permitted Signatures: Dispatcher [employer] Rey Kim RN RN Magda Issa Stephanie, MD MD sd2
[2021-11-16 18:05] VITALS: TEMP 99.3; O2SAT 98
[2021-11-16 18:16] VITALS: BP 146/85
== END 2021-11-16 16:41 | disposition home or self-care (01) ==
LOC: ER 12:21
DX: L03.115 Cellulitis of right lower limb (principal); I10 Essential (primary) hypertension
CPT/HCPCS: 36415; 80048; 84145; 85025; 85652; 86140; 87040; 96365; 96375; 99284

== ENCOUNTER 2021-11-23 13:50 | Emergency (ER) | payer OTHER ==
--- OUTSIDE RECORDS SUMMARY | 2021-11-23 13:56 | XMS REPORT | Continuity of Care Document ---
:1940 Author Organization [facility] t Address [address] [place] [address] Care Team Providers Name Role Phone Brian Marvin MD Primary Care Physician Doctor Unassigned, [place] Attending Clinician Unavailable Yi GUERRA Attending Clinician Unavailable Yi Marvin Attending Clinician NICOLASA STUBBS Attending Clinician Unavailable Lab, [facility] Attending Clinician Unavailable Nicolasa Wang Attending Clinician DEVANTE MORRIS Attending Clinician Unavailable GUERA DEE Admitting Clinician Unavailable DEVANTE MORRIS Admitting Clinician Unavailable Payers Payer Name Policy Type Policy Number Effective Date Expiration Date S ource Problems This patient has no known problems. Allergies, Adverse Reactions, Alerts Allergy Allergy Status Severity Reaction(s) Onset Inactive Treating Comm ents Source Name Type Date Date Clinician NO KNOWN Drug Active [facility] ALLERGIE Class ity [facility] NO KNOWN Allergy Active [facility] Social History Social Habit Start Date Stop Date Quantity Comments Source Exposure to Not sure [facility] SARS-CoV-2 (event) Medica l Branch Sex Assigned At [birth year] [facility] 00:00:00 00:00:00 [facility] Smoking Status Start Date Stop Date Source Unknown if ever smoked [facility] Medications Ordered Filled Start Stop Current Ordering Indication Dosage Frequency Signature Comments Components Source Medication Medication Date Date Medication? Clinician (SIG) Name Name naproxen 2021- No 500mg 500 mg, Univ ers (NAPROSYN) 2-18 02-18 Oral, ity of tablet 500 19:30: 18:24 ONCE, 1 [place] as mg 00 :00 dose, On Medical Fri Branch 06/06/21 at 1330, Routine naproxen 2021-0 Yes [id number] 500mg Take 1 Uni vers (NAPROSYN) 2-18 tablet by ity of 500 mg 00:00: mouth 2 [place] tablet 00 (two) Medical times Branch daily with meals. naproxen 2021-0 Yes [id number] 500mg Take 1 Uni vers (NAPROSYN) 2-18 tablet by ity of 500 mg 00:00: mouth 2 [place] tablet 00 (two) Medical times Branch daily with meals. naproxen 2021-0 Yes [id number] 500mg Take 1 Uni vers (NAPROSYN) 2-18 tablet by ity of 500 mg 00:00: mouth 2 [place] tablet 00 (two) Medical times Branch daily with meals. ALLOPURINOL 2014-0 Yes Take by Uni vers ORAL 9-16 mouth. ity of 13:03: [address] ALLOPURINOL 2014-0 Yes Take by Uni vers ORAL 9-16 mouth. ity of 13:03: [address] ALLOPURINOL 2014-0 Yes Take by Uni vers ORAL 9-16 mouth. ity of 08:03: [address] ALLOPURINOL 2014-0 Yes Take by Uni vers ORAL 9-16 mouth. ity of 08:03: [address] ALLOPURINOL 2014-0 Yes Take by Uni vers ORAL 9-16 mouth. ity of 08:03: [address] naproxen 2014-0 Yes 550mg Take 1 Tab Un ar sodium 9-16 by mouth 2 ity of (ANAPROX) 00:00: (two) [place] 550 mg 00 times Medical tablet daily with Branch meals. naproxen 2014-0 Yes 550mg Take 1 Tab Un ar sodium 9-16 by mouth 2 ity of (ANAPROX) 00:00: (two) [place] 550 mg 00 times Medical tablet daily with Branch meals. naproxen 2014-0 Yes 550mg Take 1 Tab Un ar sodium 9-16 by mouth 2 ity of (ANAPROX) 00:00: (two) [place] 550 mg 00 times Medical tablet daily with Branch meals. naproxen 2014-0 Yes 550mg Take 1 Tab Un ar [...] [place] tablet 00 hours Medical Branch methylPREDN 0 Yes 84mg Take 21 Uni vers ISolone 7-25 Tabs by ity of (MEDROL 00:00: mouth [place] DOSE-CYNTHIA) 4 00 SEE-INSTRU Me dical mg tablets CTIONS. Branch follow package directions colchicine Yes Take one Uni vers (COLCRYS) 7-25 tablet ity of 0.6 mg 00:00: every 12 [place] tablet 00 hours Medical Branch methylPREDN 0 Yes 84mg Take 21 Uni vers ISolone 7-25 Tabs by ity of (MEDROL 00:00: mouth [place] DOSE-CYNTHIA) 4 00 SEE-INSTRU Me dical mg tablets CTIONS. Branch follow package directions colchicine Yes Take one Uni vers (COLCRYS) 7-25 tablet ity of 0.6 mg 00:00: every 12 [place] tablet 00 hours Medical Branch methylPREDN 0 Yes 84mg Take 21 Uni vers ISolone 7-25 Tabs by ity of (MEDROL 00:00: mouth [place] DOSE-CYNTHIA) 4 00 SEE-INSTRU Me dical mg tablets CTIONS. Branch follow package directions colchicine Yes Take one Uni vers (COLCRYS) 7-25 tablet ity of 0.6 mg 00:00: every 12 [place] tablet 00 hours Medical Branch methylPREDN 0 Yes 84mg Take 21 Uni vers ISolone 7-25 Tabs by ity of (MEDROL 00:00: mouth [place] DOSE-CYNTHIA) 4 00 SEE-INSTRU Me dical mg tablets CTIONS. Branch follow package directions colchicine Yes Take one Uni vers (COLCRYS) 7-25 tablet ity of 0.6 mg 00:00: every 12 [place] tablet 00 hours Medical Branch methylPREDN 0 Yes 84mg Take 21 Uni vers ISolone 7-25 Tabs by ity of (MEDROL 00:00: mouth [place] DOSE-CYNTHIA) 4 00 SEE-INSTRU Me dical mg tablets CTIONS. Branch follow package directions Vital Signs Vital Name Observation Time Observation Value Comments Source Systolic blood 2021-06-06 18:25:39 152 mm[Hg] Univer sity of pressure [facility] Diastolic blood 2021-06-06 18:25:39 95 mm[Hg] [facility] 2021-06-06 18:25:39 66 /min [facility] Respiratory rate 2021-06-06 18:25:39 18 /min [facility] Oxygen saturation in 2021-06-06 18:25:39 100 /min [facility] Arterial blood by [facility] Pulse oximetry [place] Body temperature 2021-06-06 16:53:00 36.44 Lakisha [facility] Body weight 2021-06-06 16:53:00 95.709 kg [facility] BMI 2021-06-06 16:53:00 28.61 kg/m2 [facility] Procedures Procedure Date / Time Performing Clinician Source Performed MEDICATION CORRESPONDENCE 2021-09-19 05:01:00 Doctor Fredo, [facility] Name [facility] MEDICATION CORRESPONDENCE 2021-06-27 06:01:00 Doctor Fredo, [facility] Name [facility] XR KNEE 3 VW LEFT 2021-06-06 17:30:17 Guera Dee [facility] NOTICE OF PRIVACY 2021-06-06 16:50:30 Doctor Fredo, [facility] [place] CONSENT/REFUSAL FOR 2021-06-06 16:50:04 Doctor Fredo, [facility] DIAGNOSIS AND TREATMENT [facility] [place] Encounters Start End Encounter Admission Attending Care Care Encounter Source Date/Time Date/Time Type Type Clinicians Facility Department ID 2021-09-19 2021-09-19 Orders Doctor GREER [id number] Univers 00:00:00 00:00:00 Only UnassSABIHA borja [id number] ity of [place] [facility] 4.2.7.2.686 Domo as [phone] [address] 2021-06-27 2021-06-27 Orders Doctor ZOEY [id number] Univers 00:00:00 00:00:00 Only Unassigned, SABIHA 350.1.13.10 ity of [place] [facility] 4.2.7.2.686 Domo as [phone] [address] 2021-06-06 2021-06-06 Emergency X MARI, K [facility] ERT [id number] Univers 10:55:00 12:45:00 ity of [facility] 2021-06-06 2021-06-06 Emergency Mari, K [facility] [id number] Univers 10:55:00 12:45:00 Mari JUNIE [id number] i ty of [place] 4.2.7.2.686 [place] [facility] [phone] [address] 2020-04-07 2020-04-07 Outpatient R EVELYNE [facility] [id number] Univers 12:20:00 12:20:00 NICOLASA ity of [facility] 2020-04-07 2020-04-07 Laboratory Lab, [facility] Fam Pob I [facility] 1.2. [id number] Univers 10:25:04 10:45:04 Only Green, [facility] 350.1.13.10 ity of [place] 4.2.7.2.686 Domo as Professio [phone] Ne dical [address] Office [address] 2020-04-07 2020-04-07 Laboratory Lab, [facility] [id number] 10:25:04 10:45:04 Only Fam Pob I Health 350.1.13.10 [place] 4.2.7.2.686 Professio [phone] [place] [address] [address] 2020-04-07 2020-04-07 Letter Doctor ZOEY [id number] Univers 00:00:00 00:00:00 (Out) Unassigned, SABIHA 350.1.13.10 ity of [place] [facility] 4.2.7.2.686 Domo as [phone] [address] 2020-04-07 2020-04-07 Letter Doctor ZOEY [id number] 00:00:00 00:00:00 (Out) Unassigned, SABIHA 350.1.13.10 [place] [facility] 4.2.7.2.686 [phone] 044 Results Test Description Test Time Test Comments Results Result Comments Source TISSUE EXAM 2018-12-22 Surgical Pathology 15:10:00 Report Case: [id number] Authorizing Provider: Charlene Delgado MD Collected: 12/15/20182018 Ordering Location: [facility] Received: 12/20/2018 0953 SERVICES Pathologist: David Felix MD Specimen: Small Bowel, NOS, Small Bowel A. SMALL BOWEL, RESECTIONSMALL BOWEL WITH SEROSAL ADHESIONS, CONGESTION, ACUTE INFLAMMATION AND SEROSITIS.NEGATIVE FOR GRANULOMAS, DYSPLASIA, OR INVASIVE CARCINOMA.MARGINS VIABLE Signing Pathologist Direct Phone Line: [phone] monique signed by David Felix MD on 12/22/2018 at 3:10 [id number] laparotomy, lysis of adhesions, small bowel resection [...] Interpretation Comme [facility] POC-GLUCOSE METER (BAYLEE) (test 96 mg/dL 70-110 TESTED AT [facility] [address] code = 1538) [facility] 7703 0 CBC W/PLT COUNT & AUTO [id number] 07:27:00 Test Item Value Reference Range Interpretation [...] = 3438) Received comment: User comments: Slide comments:[id number] 05:23:00 Test Item Value Reference Range Interpretation Comments MAGNESIUM (BEAKER) (test code = 1.7 mg/dL 1.6-2.6 627) BASIC METABOLIC [id number] 05:23:00 Test Item Value Reference Range Interpretation [...] mg/dL 8.4-10.2 (test code = 697) EGFR ([facility]) (test 54 mL/min/1.73 ESTIMA JUAN GFR IS code = 1092) sq m NOT ACCURATE CREATININE CLEARANCE IN PREDICTING GLOMERULAR FILTRATION RATE . ESTIMATED GFR I S NOT APPLICABLE FOR DIALYSIS PATIEN TS. POCT-GLUCOSE [id number] 21:16:00 Test Item Value Reference Range Interpretation Comments POC-GLUCOSE METER 107 mg/dL 70-110 TESTED AT [place] [address] ([facility]) (test code = [facility] 1538) 28857 POCT-GLUCOSE [id number] 18:22:00 Test Item Value Reference Range Interpretation Comments POC-GLUCOSE METER 111 mg/dL 70-110 H TESTED AT [place] [address] ([facility]) (test code = [facility] 1538) 37593 POCT-GLUCOSE [id number] 14:04:00 Test Item Value Reference Range Interpretation Comments POC-GLUCOSE METER 132 mg/dL 70-110 H TESTED AT [place] [address] ([facility]) (test code = [facility] 1538) [id number] POCT-GLUCOSE [id number] 08:04:00 Test Item Value Reference Range Interpretation Comments POC-GLUCOSE METER 142 mg/dL 70-110 H TESTED AT [place] [address] ([facility]) (test code = [facility] 1538) 16891 CBC W/PLT COUNT & AUTO [id number] 05:08:00 Test Item Value Reference Range Interpretation Comments WHITE BLOOD CELL COUNT ([facility]) 11.8 K/ L 3.5-10.5 H (test code = 775) RED BLOOD CELL COUNT ([facility]) 5.36 M/ L 4.63-6.08 (test code = 761) HEMOGLOBIN ([facility]) (test code = 9.7 GM/DL 13.7-17.5 L 410) HEMATOCRIT ([facility]) (test code = 33.7 % 40.1-51.0 L 411) MEAN CORPUSCULAR VOLUME ([facility]) 62.9 fL 79.0-92.2 L (test code = 753) MEAN CORPUSCULAR HEMOGLOBIN 18.1 pg 25.7-32.2 L (AKER) (test code = 751) MEAN CORPUSCULAR HEMOGLOBIN [...] 0-1 PERCENT (BEAKER) (test code = 2801) [id number] 04:50:00 Test Item Value Reference Range Interpretation Comments MAGNESIUM (BEAKER) (test code = 1.7 mg/dL 1.6-2.6 627) BASIC METABOLIC [id number] 04:50:00 Test Item Value Reference Range Interpretation Comments SODIUM (BEAKER) 139 meq/L 136-145 (test code = 381) POTASSIUM (BEAKER) 3.7 meq/L 3.5-5.1 (test code = 379) CHLORIDE (BEAKER) 112 meq/L 98-107 H (test code = 382) CO2 (BEAKER) (test 20 meq/L 22-29 L code = 355) BLOOD UREA NITROGEN 6 mg/dL 7-21 L (BEAKER) (test code = 354) CREATININE ([facility]) 1.52 mg/dL 0.57-1.25 H (test code = 358) GLUCOSE RANDOM 115 mg/dL 70-105 H ([facility]) (test code = 652) CALCIUM ([facility]) 8.2 mg/dL 8.4-10.2 L (test code = 697) EGFR ([facility]) (test 54 mL/min/1.73 ESTIMA JUAN GFR IS code = 1092) sq m NOT ACCURATE CREATININE CLEARANCE IN PREDICTING GLOMERULAR FILTRATION RATE . ESTIMATED GFR I S NOT APPLICABLE FOR DIALYSIS PATIEN TS. POCT-GLUCOSE [id number] 21:51:00 Test Item Value Reference Range Interpretation Comments POC-GLUCOSE METER 112 mg/dL 70-110 H TESTED AT [place] [address] ([facility]) (test code = [facility] 1538) [id number] POCT-GLUCOSE [id number] 17:20:00 Test Item Value Reference Range Interpretation Comments POC-GLUCOSE METER 131 mg/dL 70-110 H TESTED AT [place] [address] ([facility]) (test code = [facility] 1538) 86576 POCT-GLUCOSE [id number] 12:30:00 Test Item Value Reference Range Interpretation Comments POC-GLUCOSE METER 122 mg/dL 70-110 H TESTED AT [place] [address] ([facility]) (test code = [facility] 1538) 8[address] CBC W/PLT COUNT & AUTO [id number] 09:45:00 Test Item Value Reference Range Interpretation Comments WHITE BLOOD CELL COUNT ([facility]) 11.9 K/ L 3.5-10.5 H (test code = 775) RED BLOOD CELL COUNT ([facility]) 5.26 M/ L 4.63-6.08 (test code = 761) HEMOGLOBIN (AKER) (test code = 9.7 GM/DL 13.7-17.5 L 410) HEMATOCRIT ([facility]) (test code = 33.1 % 40.1-51.0 L 411) MEAN CORPUSCULAR VOLUME ([facility]) 62.9 fL 79.0-92.2 L (test code = [...] 3438) Received comment: User comments: Slide comments:POCT-GLUCOSE [id number] 08:19:00 Test Item Value Reference Range Interpretation Comments POC-GLUCOSE METER 126 mg/dL 70-110 H TESTED AT [facility] 6720 (BEAKER) (test code = [facility] [place] 1538) [address] [id number] 05:41:00 Test Item Value Reference Range Interpretation Comments MAGNESIUM (BEAKER) (test code = 1.8 mg/dL 1.6-2.6 627) BASIC METABOLIC [id number] 05:41:00 Test Item Value Reference Range Interpretation [...] NOT APPLICABLE FOR DIALYSIS PATIEN TS. POCT-GLUCOSE [id number] 23:59:00 Test Item Value Reference Range Interpretation Comments POC-GLUCOSE METER 114 mg/dL 70-110 H TESTED AT [facility] 6720 (BEAKER) (test code = [facility] [place] 1538) [address] POCT-GLUCOSE [id number] 18:01:00 Test Item Value Reference Range Interpretation Comments POC-GLUCOSE METER 118 mg/dL 70-110 H TESTED AT [facility] 6720 (BEAKER) (test code = TULIO Landis [facility] 1538) [address] POCT-GLUCOSE [id number] 12:49:00 Test Item Value Reference Range Interpretation Comments POC-GLUCOSE METER 141 mg/dL 70-110 H TESTED AT [facility] 6720 (BEAKER) (test code = TULIO Landis [facility] 1538) [address] URINALYSIS W/ REFLEX URINE [id number] 08:56:00 Test Item Value Reference Range Interpretation [...] = 2795) RAD, CHEST, 1 VIEW, NON [id number] 07:48:00Reason for exam:- >leukocytosisShould this be performed at the bedside?->YesFINAL REPORT Portable chest. CLINICAL HISTORY: leukocytosis. COMPARISON STUDY: None. FINDINGS: The cardiac silhouette is enlarged. The pulmonary parenchyma demonstrates increased interstitial markings with atelectatic or consolidative changes in the left lung base. No pneumothoraxis seen. Degenerative changes are noted. IMPRESSION: Interstitial markings with atelectatic or consolidative changes in the left lung base. In the right clinical setting, a superimposed infection wouldbe difficult to exclude. Clinical correlation and short term imaging follow-up could be made to exclude other etiologies. Signed: Anthony Daly MDReport Verified Date/Time: 12/19/2018 07:48:39 Reading Location: [facility] C013X Ortho Consult Reading Room Electronically signed by: ANTHONY DALY M.D. on12/19/2018 07:48 AMCBC W/PLT COUNT & AUTO [id number] 05:27:00 Test Item Value Reference Range Interpretation [...] H PERCENT (BEAKER) (test code = 2801) [id number] 05:25:00 Test Item Value Reference Range Interpretation Comments PREALBUMIN (BEAKER) (test code = 586) 8 mg/dL 14-45 L [id number] 05:23:00 Test Item Value Reference Range Interpretation Comments MAGNESIUM (BEAKER) (test code = 1.9 mg/dL 1.6-2.6 627) BASIC METABOLIC [id number] 05:23:00 Test Item Value Reference Range Interpretation [...] NOT APPLICABLE FOR DIALYSIS PATIEN TS. POCT-GLUCOSE [id number] 23:55:00 Test Item Value Reference Range Interpretation Comments POC-GLUCOSE METER 135 mg/dL 70-110 H TESTED AT [facility] 6720 ([facility]) (test code = TULIO Landis [place] 1538) [address] POCT-GLUCOSE [id number] 19:04:00 Test Item Value Reference Range Interpretation Comments POC-GLUCOSE METER 142 mg/dL 70-110 H TESTED AT [facility] 67 ([facility]) (test code = TULIO Landis [place] 1538) [address] RAD, ABDOMEN/KUB, 1 VIEW [id number] 09:42:00Reason for exam:->bowel obstruction r/oFINAL REPORT CLINICAL HISTORY: bowel obstruction TECHNIQUE: Supine abdomen COMPARISON: 12/15/2018 IMPRESSION: There are new midline abdominal skin ash. Nasogastric tube is againseen looped in the stomach. A relative paucity of bowel gas remains in the lower abdomen, with increased air-filled loops of large and small bowel in the left upper quadrant. Free air and air-fluid levels are not seen but cannot be definitively excluded on the supine view. Signed: Taye Banegas MDReport Verified Date/Time: 12/18/2018 09:42:46 Reading Location: [facility] B1 C013V Neuro Reading Room [facility] signed by: TAYE BANEGAS M.D. on 12/18/2018 09:42 AMPOCT-GLUCOSE METER 2018-12-18 07:27:00 Test Item Value Reference Range Interpretation Comments POC-GLUCOSE METER 158 mg/dL 70-110 H TESTED AT [facility] 6720 ([facility]) (test code = TULIO Landis [place] 1538) [id number] POCT-GLUCOSE [id number] 05:43:00 Test Item Value Reference Range Interpretation Comments POC-GLUCOSE METER 142 mg/dL 70-110 H TESTED AT [facility] 6720 ([facility]) (test code = TULIO Landis [place] 1538) [address] BASIC METABOLIC [id number] 04:41:00 Test Item Value Reference Range Interpretation Comments SODIUM ([facility]) 144 meq/L 136-145 (test code = 381) [...] S NOT APPLICABLE FOR DIALYSIS PATIEN TS. [id number] 04:19:00 Test Item Value Reference Range Interpretation Comments MAGNESIUM (BEAKER) (test code = 1.9 mg/dL 1.6-2.6 627) CBC W/PLT COUNT & AUTO [id number] 03:25:00 Test Item Value Reference Range Interpretation [...] PERCENT (BEAKER) (test code = 2801) POCT-GLUCOSE [id number] 23:23:00 Test Item Value Reference Range Interpretation Comments POC-GLUCOSE METER 145 mg/dL 70-110 H TESTED AT [place] [address] (BEAKER) (test code = T[place]IO [place] 1538) [address] POCT-GLUCOSE [id number] 18:28:00 Test Item Value Reference Range Interpretation Comments POC-GLUCOSE METER 129 mg/dL 70-110 H TESTED AT [place] [address] (BEAKER) (test code = T[place]IO [place] 1538) [address] POCT-GLUCOSE [id number] 12:58:00 Test Item Value Reference Range Interpretation Comments POC-GLUCOSE METER 159 mg/dL 70-110 H TESTED AT [facility] 6720 (BEAKER) (test code = [place] 1538) [address] [id number] 05:56:00 Test Item Value Reference Range Interpretation Comments MAGNESIUM (BEAKER) 2.0 mg/dL 1.6-2.6 Specimen slightly (test code = 627) hemolyzed BASIC METABOLIC [id number] 05:56:00 Test Item Value Reference Range Interpretation [...] PATIEN TS. CBC W/PLT COUNT & AUTO [id number] 04:38:00 Test Item Value Reference Range Interpretation [...] PERCENT (BEAKER) (test code = 2801) POCT-GLUCOSE [id number] 02:18:00 Test Item Value Reference Range Interpretation Comments POC-GLUCOSE METER 147 mg/dL 70-110 H TESTED AT [place] [address] [facility] (test code = TULIO Landis [facility] 1538) [address] POCT-GLUCOSE [id number] 19:10:00 Test Item Value Reference Range Interpretation Comments POC-GLUCOSE METER 179 mg/dL 70-110 H TESTED AT [place] [address] ([facility]) (test code = TULIO Landis [facility] 1538) [address]881 POCT-GLUCOSE [id number] 12:29:00 Test Item Value Reference Range Interpretation Comments POC-GLUCOSE METER 161 mg/dL 70-110 H TESTED AT [place] [address] ([facility]) (test code = TULIO Landis [facility] 1538) [address]42 POCT-GLUCOSE [id number] 05:45:00 Test Item Value Reference Range Interpretation Comments POC-GLUCOSE METER 140 mg/dL 70-110 H TESTED AT [facility] 6720 (BEAKER) (test code = [place] 1538) [address] (CELLAVISION MANUAL DIFF)2018-12-16 03:43:00 Test Item Value [...] comments: Slide comments:CBC W/PLT COUNT & AUTO [id number] 03:26:00 Test Item Value Reference Range Interpretation [...] WBC 0-0 (BEAKER) (test code = 413) [id number] 03:23:00 Test Item Value Reference Range Interpretation Comments MAGNESIUM (BEAKER) 2.1 mg/dL 1.6-2.6 Specimen slightly (test code = 627) hemolyzed BASIC METABOLIC [id number] 03:23:00 Test Item Value Reference Range Interpretation [...] NOT APPLICABLE FOR DIALYSIS PATIEN TS. POCT-GLUCOSE [id number] 22:54:00 Test Item Value Reference Range Interpretation Comments POC-GLUCOSE METER 106 mg/dL 70-110 TESTED AT [facility] 6720 (BEAKER) (test code = TULIO Landis [facility] 1538) [address]646 POCT-GLUCOSE [id number] 12:21:00 Test Item Value Reference Range Interpretation Comments POC-GLUCOSE METER 85 mg/dL 70-110 TESTED AT [facility] 6720 (BAYLEE) (test code = [place] [address] 1538) CT, [id number] 10:13:00With oral contrastAddendum BeginsREPORT STATUS:A One area of questionable small bowel wall thickening is nonspecific but could be due to nondistention. Signed: Guillaume Kirk MDReport Verified Date/Time: 12/15/2018 10:13:27 Reading Location: [facility] Diagnostic Imaging Reading Room - [place] [address] 1129Addendum EndsFINAL REPORT TECHNIQUE: CT of the abdomen and pelvis WITHOUT intravenous contrast and WITHOUT oral contrast. Dose modulation, iterative reconstruction, and/or weight-based adjustment of the mA/kV was utilized to reduce the radiation dose to as low as reasonably achievable. INDICATION: Bowel obstruction low-grade suspected. COMPARISON: None. FINDINGS: ABSENCE OF INTRAVENOUS CONTRAST DECREASES SENSITIVITY FOR DETECTION OF FOCAL LESIONS AND VASCULAR PATHOLOGY. LOWER THORAX: Partially visualized bibasilar patchy opacities. HEPATOBILIARY: No focal hepatic lesions. Gallbladder is unremarkable. No biliary ductal dilatation.SPLEEN: No splenomegaly.PANCREAS: No focal masses or ductal dilatation. ADRENALS: No adrenal nodules.KIDNEYS/URETERS: Not hydronephrosis or exophytic masses. Aright interpolar nonobstructing stone measures 0.2 cm. The vertebral pole renal cyst measures 3.4 cm. A right lower pole renal cyst measures 1.5 cm.PELVIC ORGANS/BLADDER: The gas in the bladder is likely due to recent prior instrumentation. PERITONEUM/RETROPERITONEUM: No free air or fluid.LYMPH NODES:No lymphadenopathy.VESSELS: There is some mild engorgement of the vasculature and some of this portion of small bowel, possibly also cause by the adhesion. Mild aortic calcification. GI TRACT: There nery proximal small bowel are markedly thickened with [...] the second portion of the duodenum. A qu estionable area of thickening is seen in the proximal jejunum on coronal image 28. The duodenum doesnot fully cross midline, and there are multiple surgical clips in the mesentery. Prior subtotal colectomy. Mild diverticulosis of the residual colon. NG tube with tip in the gastric antrum. BONES AND SOFT TISSUES: The bones are diffusely demineralized. [...] there is no true complete rotation of the vasculature. This engorgement is likely due to the [...] Kirk Verified Date/Time: 12/15/2018 08:01:53 Reading Location: [facility] Diagnostic Imaging Reading Room - [place] [address] RAD, ABDOMEN/KUB, 1 VIEW [id number] 09:38:00Reason for exam:->Assess progression of contrast from CT yestShould this be performed [facility]?->YesFINAL REPORT RAD, ABDOMEN/KUB, 1 VIEW AP CLINICAL INDICATION: Assess progression of contrast from CT yest COMPARISON: December 13, 2018 TECHNIQUE: Single, frontal radiograph of the abdomen. IMPRESSION:The bowel gas pattern is nonspecific, but nonobstructive. No enteric contrast is identified. There is no visible pneumatosis. Positioning of the nasogastric tube is stable. The regional skeleton is intact. Signed: JR Bruce Robert MDReport Verified Date/Time: 12/15/2018 09:38:11 Reading Location: [facility] Radiology Reading Room [id number] 06:58:00 Test Item Value Reference Range Interpretation Comments MAGNESIUM (BEAKER) (test code = 2.1 mg/dL 1.6-2.6 627) BASIC METABOLIC [id number] 06:58:00 Test Item Value Reference Range Interpretation [...] NOT APPLICABLE FOR DIALYSIS PATIEN TS. POCT-GLUCOSE [id number] 06:25:00 Test Item Value Reference Range Interpretation Comments POC-GLUCOSE METER 97 mg/dL 70-110 TESTED AT [facility] 6720 (BEAKER) (test code = [place] [address] 1538) [id number] 05:34:00 Test Item Value Reference Range Interpretation [...] = 2590) CBC W/PLT COUNT & AUTO [id number] 04:50:00 Test Item Value Reference Range Interpretation [...] PERCENT (BEAKER) (test code = 2801) POCT-GLUCOSE [id number] 18:23:00 Test Item Value Reference Range Interpretation Comments POC-GLUCOSE METER 127 mg/dL 70-110 H TESTED AT [facility] 6720 (BEAKER) (test code = [place] 1538) [address] CBC W/PLT COUNT & AUTO [id number] 13:34:00 Test Item Value Reference Range Interpretation [...] (test code = 1+ few 480) POCT-GLUCOSE [id number] 13:08:00 Test Item Value Reference Range Interpretation Comments POC-GLUCOSE METER 135 mg/dL 70-110 H TESTED AT [facility] 6720 (BEAKER) (test code = [place] 1538) [id number] 06:13:00 Test Item Value Reference Range Interpretation Comments MAGNESIUM (BEAKER) (test code = 2.5 mg/dL 1.6-2.6 627) BASIC METABOLIC [id number] 06:13:00 Test Item Value Reference Range Interpretation [...] NOT APPLICABLE FOR DIALYSIS PATIEN TS. POCT-GLUCOSE [id number] 23:25:00 Test Item Value Reference Range Interpretation Comments POC-GLUCOSE METER 126 mg/dL 70-110 H TESTED AT [facility] 6720 (BEAKER) (test code = [place] 1538) [id number] 16:50:00 Test Item Value Reference Range Interpretation Comments MAGNESIUM (BEAKER) (test code = 2.1 mg/dL 1.6-2.6 627) BASIC METABOLIC [id number] 16:50:00 Test Item Value Reference Range Interpretation [...] NOT APPLICABLE FOR DIALYSIS PATIEN TS. POCT-GLUCOSE [id number] 12:31:00 Test Item Value Reference Range Interpretation Comments POC-GLUCOSE METER 191 mg/dL 70-110 H TESTED AT [facility] 6720 (BEAKER) (test code = [place] 1538) [id number] BASIC METABOLIC [id number] 09:27:00 Test Item Value Reference Range Interpretation [...] DIALYSIS PATIEN TS. RAD, ABDOMEN/KUB, 1 VIEW [id number] 08:56:00Reason for exam:->Nasogastric tube placementShould this be performed at the bedside?->YesFINAL REPORT RAD, ABDOMEN/KUB, 1 VIEW AP CLINICAL INDICATION: Nasogastric tube placement COMPARISON: None TECHNIQUE: Single, frontal radiograph of the abdomen. FINDINGS: The bowel gas pattern is nonspecific, but nonobstructive. Decreased gaseous distention status post placement ofNG tube. No abnormal mass or ascites is detected. No significant calcifications are present. The regional skeleton is intact. IMPRESSION: Decreased gaseous distention status post placement of NG tube. Signed: Huseyin Metcalfeport Verified Date/Time: 12/13/2018 08:56:12 Reading Location: [facility] Radiology Reading Room RAD, ABDOMEN/KUB, 1 VIEW [id number] 08:26:00Reason for exam:->stomach distentionFINAL REPORT RAD, ABDOMEN/KUB, [...] skeleton is intact. IMPRESSION: Stomach and small bowelare gas-filled and further distended (increased from prior). Ileus cannot be excluded. Signed: Huseyin Metcalf MDReport Verified Date/Time: 12/13/2018 08:26:26 Reading Location: [facility] RadiologyReading Room POCT-GLUCOSE [id number] 08:09:00 Test Item Value Reference Range Interpretation Comments POC-GLUCOSE METER 167 mg/dL 70-110 H TESTED AT [facility] 6720 ([facility] (test code = [place] [id number]) [id number] COMPREHENSIVE METABOLIC [id number] 07:34:00 Test Item Value Reference Range Interpretation [...] 0-0 (BEAKER) (test code = 413) POCT-GLUCOSE [id number] 22:28:00 Test Item Value Reference Range Interpretation Comments POC-GLUCOSE METER 122 mg/dL 70-110 H TESTED AT [place] [address] ([facility]) (test code = T[place]IO Landis [facility] 1538) [id number] POCT-GLUCOSE [id number] 18:06:00 Test Item Value Reference Range Interpretation Comments POC-GLUCOSE METER 146 mg/dL 70-110 H TESTED AT [place] [address] ([facility]) (test code = [place] [facility] 1538) [address] [id number] 17:43:00 Test Item Value Reference Range Interpretation Comments ACTIVATED CLOTTING TIME 120 sec TEST ED AT [place] [address] ([facility]) (test code = [place]is [facility] 441) [address] TROPONIN [id number] 13:42:00 Test Item Value Reference Range Interpretation Comments TROPONIN I ([facility]) (test code = 0.02 ng/mL 0.00-0.03 397) [...] failure, acidosis, acute neurological disease, and persistent tachyarrhythmia.[id number] 11:41:00 Test Item Value Reference Range Interpretation Comments PARTIAL THROMBOPLASTIN TIME 66.8 seconds 22.5-36.0 H ([facility]) (test code = 760) RAD, ABDOMEN/KUB, 1 VIEW [id number] 10:05:00Reason for exam:->small bowel obstructionShould this be performed at the bedside?->YesFINAL REPORT RAD, ABDOMEN/KUB, 1 VIEW AP CLINICAL INDICATION: small bowel obstru ction COMPARISON: None TECHNIQUE: Single, frontal radiograph of the abdomen. FINDINGS: The bowel gaspattern is nonspecific, but nonobstructive. Stomach and small bowel are gas-filled and mildly distended. Ileus cannot be excluded. No abnormal mass or ascites is detected. No significant calcificationsare present. The regional skeleton is intact. IMPRESSION: Nonspecific, nonobstructive bowel gas pattern. Stomach and small bowel are gas-filled and mildly distended. Ileus cannot be excluded. Signed: Huseyin Metcalf MDReport Verified Date/Time: 12/12/2018 10:05:00 Reading Location: [facility] Radiology Reading Room REHENSIVE METABOLIC [id number] 08:18:00 Test Item Value Reference Range Interpretation [...] NOT APPLICABLE FOR DIALYSIS PATIEN TS. TROPONIN [id number] 07:33:00 Test Item Value Reference Range Interpretation [...] acute neurological disease, and persistent tachyarrhythmia.BASIC METABOLIC [id number] 07:26:00 Test Item Value Reference Range Interpretation [...] WBC 0-0 (BEAKER) (test code = 413) [id number] 06:07:00 Test Item Value Reference Range Interpretation Comments PARTIAL THROMBOPLASTIN TIME 82.8 seconds 22.5-36.0 H (BEAKER) (test code = 760) TROPONIN [id number] 22:44:00 Test Item Value Reference Range Interpretation [...] 0-100 (test code = 700) COMPREHENSIVE METABOLIC [id number] 22:37:00 Test Item Value Reference Range Interpretation [...] S NOT APPLICABLE FOR DIALYSIS PATIEN TS. [id number] 22:28:00 Test Item Value Reference Range Interpretation Comments PARTIAL THROMBOPLASTIN TIME 26.5 seconds 22.5-36.0 (BEAKER) (test code = 760) Prior to initiating heparinCBC W/PLT COUNT & AUTO [id number] 22:22:00 Test Item Value Reference Range Interpretation [...]
[2021-11-23] MEDS ORDERED: COLCHICINE 0.6 MG TAB ONE (15:12)
[2021-11-23] MEDS ORDERED: MORPHINE 2 MG/ML SYR ONE (15:12)
[2021-11-23] MEDS ORDERED: dexAMETHasone 10 MG/ML VIAL ONE (15:12)
[2021-11-23] MEDS ORDERED: NA CHLORIDE 0.9% 500 ML ONE (15:13)
[2021-11-23] MEDS ORDERED: KETOROLAC 30 MG/ML INJ ONE (15:13)
[2021-11-23] MEDS ORDERED: ONDANSETRON 4 MG/2 ML VIAL ONE (15:13)
[2021-11-23 15:50] LABS: Absolute Lymphocytes (CBC) 1.1 K/uL (0.7-4.9); Hematocrit 30.7 % (39.6-49.0); Lymphocytes % 13.5 % (15.3-44.8); MCV 57.2 fL (80-100); MPV 8.7 fL (7.6-11.3); RBC Red Blood Cell Count 5.37 M/uL (4.33-5.43)
--- NOTE | 2021-11-23 16:00 | RAD REPORT ---
EXAM DESCRIPTION: RAD - Knee Right 3 View - 11/23/2021 3:45 pm CLINICAL HISTORY: Right knee pain FINDINGS: No fracture or dislocation is seen. Mild osteoarthritis medial and patellofemoral compartments
[2021-11-23 16:11] LABS: Albumin 2.6 g/dL (3.4-5.0); Bilirubin Total 0.4 mg/dL (0.2-1.0); Potassium 4.5 mmol/L (3.5-5.1); Protein, Total 8.9 g/dL (6.4-8.2); Uric Acid 8.4 mg/dL (3.5-7.2)
--- NOTE | 2021-11-23 16:22 | EDPHYS ---
Physician Documentation [facility] Name: Sukhwinder Bassett Age: 80 yrs Sex: Male : 1940 Arrival Date: 11/23/2021 Time: 13:51 Bed 20 Private MD: ED Physician Gómez Lau HPI: 11/23 14:49 This 80 yrs old Black Male presents to ER via EMS with complaints of Leg Pain. nicola 14:49 The patient presents with decreased range of motion, pain, that is acute. The nicola complaints affect the right knee. Context: The problem was sustained at an unknown site, resulted from an unknown cause, the patient can partially bear weight, must have assistance, Problem is a result from a previous injury: No. Onset: The symptoms/episode began/occurred 3 week(s) ago. Modifying factors: The symptoms are alleviated by elevating leg, remaining still, the symptoms are aggravated by nothing. Associated signs and symptoms: The patient has no apparent associated signs or symptoms. Treatment prior to arrival includes: no previous treatment. Severity of symptoms: At their worst the symptoms were mild, moderate, in the emergency department the symptoms are unchanged. The patient has not experienced similar symptoms in the past. Historical: - Allergies: 13:56 No Known Drug Allergies; ll1 - PMHx: 13:56 Arthritis; High Cholesterol; Hypertension; ll1 - PSHx: 13:56 Unable to Obtain; ll1 - Immunization history:: Client reports receiving the 2nd dose of the Covid vaccine. - Social history:: Smoking status: Patient denies any tobacco usage or history of. - Family history:: not pertinent. ROS: 14:49 Constitutional: Negative for fever, chills, and weight loss, Eyes: Negative for injury, nicola pain, redness, and discharge, ENT: Negative for injury, pain, and discharge, Neck: Negative for injury, pain, and swelling, Cardiovascular: Negative for chest pain, palpitations, and edema, Respiratory: Negative for shortness of breath, cough, wheezing, and pleuritic chest pain, Abdomen/GI: Negative for abdominal pain, nausea, vomiting, diarrhea, and constipation, Back: Negative for injury and pain, : Negative for injury, bleeding, discharge, and swelling, Skin: Negative for injury, rash, and discoloration, Neuro: Negative for headache, weakness, numbness, tingling, and seizure, Psych: Negative for depression, anxiety, suicide ideation, homicidal ideation, and hallucinations, Allergy/Immunology: Negative for hives, rash, and allergies, Endocrine: Negative for neck swelling, polydipsia, polyuria, polyphagia, and marked weight changes, Hematologic/Lymphatic: Negative for swollen nodes, abnormal bleeding, and unusual bruising. 14:49 MS/extremity: Positive for decreased range of motion, pain, of the right knee. Exam: 14:49 Constitutional: This is a well developed, well nourished patient who is awake, alert, nicola and in no acute distress. Head/Face: Normocephalic, atraumatic. Eyes: Pupils equal round and reactive to light, extra-ocular motions intact. Lids and lashes normal. Conjunctiva and sclera are non-icteric and not injected. Cornea within normal limits. Periorbital areas with no swelling, redness, or edema. ENT: Nares patent. No nasal discharge, no septal abnormalities noted. Tympanic membranes are normal and external auditory canals are clear. Oropharynx with no redness, swelling, or masses, exudates, or evidence of obstruction, uvula midline. Mucous membranes moist. Neck: Trachea midline, no thyromegaly or masses palpated, and no cervical lymphadenopathy. Supple, full range of motion without nuchal rigidity, or vertebral point tenderness. No Meningismus. Chest/axilla: Normal chest wall appearance and motion. Nontender with no deformity. No lesions are appreciated. Cardiovascular: Regular rate and rhythm with a normal S1 and S2. No gallops, murmurs, or rubs. Normal PMI, no JVD. No pulse deficits. Respiratory: Lungs have equal breath sounds bilaterally, clear to auscultation and percussion. No rales, rhonchi or wheezes noted. No increased work of breathing, no retractions or nasal flaring. Abdomen/GI: Soft, non-tender, with normal bowel sounds. No distension or tympany. No guarding or rebound. No evidence of tenderness throughout. Back: No spinal tenderness. No costovertebral tenderness. Full range of motion. Male : Normal genitalia with no discharge or lesions. Skin: Warm, dry with normal turgor. Normal color with no rashes, no lesions, and no evidence of cellulitis. Neuro: Awake and alert, GCS 15, oriented to person, place, time, and situation. Cranial nerves II-XII grossly intact. Motor strength 5/5 in all extremities. Sensory grossly intact. Cerebellar exam normal. Normal gait. Psych: Awake, alert, with orientation to person, place and time. Behavior, mood, and affect are within normal limits. 14:49 Musculoskeletal/extremity: ROM: limited active range of motion due to pain, limited passive range of motion due to pain, Circulation is intact in all extremities. Sensation intact. Compartment Syndrome exam of affected extremity: is normal. Vital Signs: 14:00 BP 140 / 89; Pulse 74 MON; Resp 16; Temp 98.0(O); Pulse Ox 100% on R/A; Weight 81.65 kg mb7 (R); Height 6 ft. 0 in. (182.88 cm) (R); 14:03 Weight 81.65 kg; Height 6 ft. 0 in. (182.88 cm); Pain 7/10; ll1 16:27 BP 126 / 73; Pulse 71; Resp 16; Pulse Ox 100% on R/A; Pain 0/10; ll1 17:02 BP 117 / 57; Pulse 72; Resp 16; Pulse Ox 100% ; ll1 14:03 Body Mass Index 24.41 (81.65 kg, 182.88 cm) ll1 MDM: 13:54 Patient medically screened. [facility] 14:53 Differential diagnosis: contusion, abrasion, tendonitis. Data reviewed: vital signs, [facility] nurses notes, lab test result(s), radiologic studies, plain films. Data interpreted: school lunch monitor: not applicable for this patient encounter. rate is 74 beats/min, rhythm is regular, Pulse oximetry: on room air is 100 %. Test interpretation: by ED physician or midlevel provider: plain radiologic studies. Counseling: I had a detailed discussion with the patient and/or guardian regarding: the historical points, exam findings, and any diagnostic results supporting the discharge/admit diagnosis, lab results, radiology results, the need for outpatient follow up, for definitive care, an hall director, a orthopedic surgeon. 11/23 14:49 Order name: CBC with Diff [facility] 11/23 14:49 Order name: Comprehensive Metabolic Panel; Complete Time: 16:21 [facility] 11/23 14:49 Order name: Knee Right 3 View XRAY; Complete Time: 16:21 [facility] 11/23 14:49 Order name: Uric Acid; Complete Time: 16:21 nicola 11/23 16:52 Order name: CBC Smear Scan EDMS 11/23 16:52 Order name: Misc. Order: 4 point walker; Complete Time: 17:01 nicola Administered Medications: 15:13 Drug: Colcrys (colchicine) 1.2 mg Route: PO; ll1 16:26 Follow up: Response: No adverse reaction; Pain is decreased ll1 15:35 Drug: NS 0.9% 500 ml Route: IV; Rate: bolus; Site: right forearm; ll1 16:25 Follow up: Response: No adverse reaction; IV Status: Completed infusion; IV Intake: ll1 500ml 15:36 Drug: Zofran (Ondansetron) 4 mg Route: IVP; Site: right forearm; ll1 16:26 Follow up: Response: No adverse reaction ll1 15:37 Drug: Ketorolac 15 mg Route: IVP; Site: right forearm; ll1 16:26 Follow up: Response: No adverse reaction; Pain is decreased; RASS: Alert and Calm (0) ll1 15:38 Drug: Decadron - Dexamethasone 6 mg Route: IVP; Site: right forearm; ll1 16:27 Follow up: Response: No adverse reaction ll1 15:39 Drug: morphine 2 mg Route: IVP; Infused Over: 4 mins; Site: right forearm; ll1 16:26 Follow up: Response: No adverse reaction; RASS: Alert and Calm (0) ll1 16:25 Drug: Colcrys (colchicine) 0.6 mg Route: PO; ll1 17:01 Follow up: Response: No adverse reaction ll1 17:01 Not Given (Patient Refused): morphine 2 mg IVP once over 4 mins ll1 Disposition Summary: 11/23/21 16:22 Discharge Ordered Location: Home nicola Problem: new nicola Symptoms: have improved nicola Condition: Stable nicola Diagnosis - Gout, unspecified nicola - Pain in right knee nicola - Osteoarthritis of knee, unspecified nicola - Anemia, unspecified nicola - Chronic kidney disease, unspecified nicola Followup: nicola - With: Private Physician - When: 2 - 3 days - Reason: Recheck today's complaints, Continuance of care, Re-evaluation by your physician Followup: nicola - With: - When: 2 - 3 days - Reason: Recheck today's complaints, Re-evaluation by your physician Followup: nicola - With: Rodrigo Morley MD - When: 2 - 3 days - Reason: Recheck today's complaints, Continuance of care, Re-evaluation by your physician Discharge Instructions: - Discharge Summary Sheet nicola - Joint Pain nicola - Arthritis nicola - Gout nicola - Musculoskeletal Pain nicola - Pain Without a Known Cause nicola - Acute Knee Pain, Adult nicola - Low-Purine Eating Plan nicola - Gout, Ieor-ym-Oros nicola - Arthritis, Wavg-qm-Obxw nicola - Ankle Pain nicola - Acute Knee Pain, Adult, Lxuy-gb-[id number] [facility] Forms: - Medication Reconciliation Form [facility] - Thank You Letter [facility] - Antibiotic Education [facility] - Prescription Opioid Use [facility] Prescriptions: - colchicine 0.6 mg Oral tablet - take 2 tablet by ORAL route once daily TAKE 1.2 MG PO X 1 THEN 0.6MG PO TO nicola FOLLOW, MAX 3 TABS PO DAILY; 6 tablet; Refills: 0, Product Selection Permitted - dexamethasone 2 mg Oral tablet - take 1 tablet by ORAL route 2 times per day; 10 tablet; Refills: 0, Product [facility] Selection Permitted - Motrin IB 200 mg Oral Tablet - take 2 tablet by ORAL route every 8 hours As needed as needed with food; 30 nicola tablet; Refills: 0, Product Selection Permitted - Tylenol-Codeine #3 300 mg-30 mg Oral - take 2 tablet by ORAL route every 6 hours; 20 tablet; Refills: 0, Product [facility] Selection Permitted Signatures: Dispatcher [employer] Gómez Alvarez MD MD cha Lewis, Lynsay, RN RN ll1
--- NOTE | 2021-11-23 16:22 | ER ---
Nurse's Notes [facility] Name: Sukhwinder Bassett Age: 80 yrs Sex: Male : 1940 Arrival Date: 11/23/2021 Time: 13:51 Bed 20 Private MD: Diagnosis: Gout, unspecified;Pain in right knee;Osteoarthritis of knee, unspecified;Anemia, unspecified;Chronic kidney disease, unspecified Presentation: 11/23 13:53 Chief complaint: Patient states: Bilateral foot pain, R knee and R hand pain for a few ll1 days. EMS states: Saw his doctor Awais for numbness and tingling of the hand. Has had trouble walking and lower extremity pain since. Pain to R hand also. Can stand with EMS, but cannot move easily. Coronavirus screen: Vaccine status: Patient reports receiving the 2nd dose of the covid vaccine. Client denies travel out of the [place] in the last 14 days. At this time, the client does not indicate any symptoms associated with coronavirus-19. Ebola Screen: Patient denies travel to an Ebola-affected area in the 21 days before illness onset. Initial Sepsis Screen: Does the patient meet any 2 criteria? No. Patient's initial sepsis screen is negative. Does the patient have a suspected source of infection? No. Patient's initial sepsis screen is negative. Risk Assessment: Do you want to hurt yourself or someone else? Patient reports no desire to harm self or others. Onset of symptoms was November 21, 2021. 13:53 Method Of Arrival: EMS ll1 13:53 Acuity: DIO 3 ll1 Triage Assessment: 13:57 General: Appears in no apparent distress. Behavior is calm, cooperative, appropriate ll1 for age. Pain: Complains of pain in right leg and left leg Quality of pain is described as aching. Neuro: Reports numbness in right hand. Musculoskeletal: Reports pain in right hand, right leg and left leg. Historical: - Allergies: 13:56 No Known Drug Allergies; ll1 - PMHx: 13:56 Arthritis; High Cholesterol; Hypertension; ll1 - PSHx: 13:56 Unable to Obtain; ll1 - Immunization history:: Client reports receiving the 2nd dose of the Covid vaccine. - Social history:: Smoking status: Patient denies any tobacco usage or history of. - Family history:: not pertinent. Screenin:57 Abuse screen: Denies threats or abuse. Nutritional screening: No deficits noted. ll1 Tuberculosis screening: No symptoms or risk factors identified. Fall Risk Total Meng Fall Scale indicates No Risk (0-24 pts). Assessment: 14:04 Reassessment: No changes from previously documented assessment. Patient and/or family ll1 updated on plan of care and expected duration. Pain level reassessed. given pillow and blanket. 15:00 Reassessment: No changes from previously documented assessment. Patient and/or family ll1 updated on plan of care and expected duration. Pain level reassessed. Patient is alert, oriented x 3, equal unlabored respirations, skin warm/dry/pink. 15:45 Reassessment: No changes from previously documented assessment. Patient and/or family ll1 updated on plan of care and expected duration. Pain level reassessed. Patient is alert, oriented x 3, equal unlabored respirations, skin warm/dry/pink. 16:27 Reassessment: No changes from previously documented assessment. Patient and/or family ll1 updated on plan of care and expected duration. Pain level reassessed. Patient is alert, oriented x 3, equal unlabored respirations, skin warm/dry/pink. 17:03 Reassessment: No changes from previously documented assessment. Patient and/or family ll1 updated on plan of care and expected duration. Pain level reassessed. Patient is alert, oriented x 3, equal unlabored respirations, skin warm/dry/pink. Vital Signs: 14:00 BP 140 / 89; Pulse 74 MON; Resp 16; Temp 98.0(O); Pulse Ox 100% on R/A; Weight 81.65 kg mb7 (R); Height 6 ft. 0 in. (182.88 cm) (R); 14:03 Weight 81.65 kg; Height 6 ft. 0 in. (182.88 cm); Pain 7/10; ll1 16:27 BP 126 / 73; Pulse 71; Resp 16; Pulse Ox 100% on R/A; Pain 0/10; ll1 17:02 BP 117 / 57; Pulse 72; Resp 16; Pulse Ox 100% ; ll1 14:03 Body Mass Index 24.41 (81.65 kg, 182.88 cm) 1 ED Course: 13:51 Patient arrived in ED. ll1 13:54 Gómez Lau MD is Attending Physician. nicola 13:56 Triage completed. ll1 13:57 Arm band placed on Patient placed in an exam room, on a stretcher. ll1 13:58 Patient has correct armband on for positive identification. Bed in low position. Call ll1 light in reach. Side rails up X2. Pulse ox on. NIBP on. 14:00 Shira Hines RN is Primary Nurse. ll1 15:35 Inserted saline lock: 22 gauge in right forearm, using aseptic technique. Blood ll1 collected. 15:47 Knee Right 3 View XRAY In Process Unspecified. EDMS 16:22 Aquiles Hernandez MD is Referral Physician. nicola 16:23 Rodrigo Morley MD is Referral Physician. [facility] 17:03 No provider procedures requiring assistance completed. IV discontinued, intact, ll1 bleeding controlled, No redness/swelling at site. Pressure dressing applied. Administered Medications: 15:13 Drug: Colcrys (colchicine) 1.2 mg Route: PO; ll1 16:26 Follow up: Response: No adverse reaction; Pain is decreased ll1 15:35 Drug: NS 0.9% 500 ml Route: IV; Rate: bolus; Site: right forearm; ll1 16:25 Follow up: Response: No adverse reaction; IV Status: Completed infusion; IV Intake: ll1 500ml 15:36 Drug: Zofran (Ondansetron) 4 mg Route: IVP; Site: right forearm; ll1 16:26 Follow up: Response: No adverse reaction ll1 15:37 Drug: Ketorolac 15 mg Route: IVP; Site: right forearm; ll1 16:26 Follow up: Response: No adverse reaction; Pain is decreased; RASS: Alert and Calm (0) ll1 15:38 Drug: Decadron - Dexamethasone 6 mg Route: IVP; Site: right forearm; ll1 16:27 Follow up: Response: No adverse reaction ll1 15:39 Drug: morphine 2 mg Route: IVP; Infused Over: 4 mins; Site: right forearm; ll1 16:26 Follow up: Response: No adverse reaction; RASS: Alert and Calm (0) ll1 16:25 Drug: Colcrys (colchicine) 0.6 mg Route: PO; ll1 17:01 Follow up: Response: No adverse reaction ll1 17:01 Not Given (Patient Refused): morphine 2 mg IVP once over 4 mins ll1 Medication: 13:58 VIS not applicable for this client. 1 Intake: 16:25 IV: 500ml; Total: 500ml. ll1 Outcome: 16:22 Discharge ordered by . nicola 17:03 Discharged to home via wheelchair. 1 17:03 Condition: stable 17:03 Discharge instructions given to patient, family, Instructed on discharge instructions, follow up and referral plans. no drinking with medication, no driving heavy equipment, medication usage, Demonstrated understanding of instructions, follow-up care, medications, Prescriptions given X 4. 17:04 Patient left the ED. 1 Signatures: Dispatcher [employer] EDGómez Haynes MD MD cha Lewis, Lynsay, RN RN 1 Sandy Alcazar [id number]
[2021-11-23 16:51] LABS: Blood Morphology Comment NOTED (NOT SEEN); Platelet Estimate ADEQ; White Blood Cell Scan OK (OK)
[2021-11-23 16:52] LABS: Hypochromasia 2+
[2021-11-23 18:03] VITALS: TEMP 98; O2SAT 100
[2021-11-23 18:16] VITALS: BP 117/57
== END 2021-11-23 17:04 | disposition home or self-care (01) ==
LOC: ER 13:50
DX: M10.9 Gout, unspecified (principal); M17.11 Unilateral primary osteoarthritis, right knee; I12.9 Hypertensive chronic kidney disease with stage 1 through stage 4 chronic kidney disease, or unspecified chronic kidney disease; N18.9 Chronic kidney disease, unspecified; D63.1 Anemia in chronic kidney disease
CPT/HCPCS: 96361; 85025; 36415; 84550; 80053; 73562; 96375; 96374; 99284; J1100; J2270; J7040; J2405